=== PATIENT | male | born 1960 ===

== ENCOUNTER 2023-11-07 17:29 | Inpatient (IN) | payer OTHER, SELFPAY ==
[2023-11-07] VITALS (10 sets, daily range): BP systolic 74–151; BP diastolic 56–133; BMI 22.1; BMI 21.3
[2023-11-07 14:30] LABS: % Basophils 0.1 % (0-2); % Eosinophils 0.2 % (0-6); % Immature Granulocytes 0.4 % (0-0.5); % Monocytes 9.8 % (1.7-9.3); % Neutrophils 76.5 % (42.2-75.2); Absolute Lymphocytes 1.2 10^3/uL (1.2-3.4); Absolute Monocytes 0.9 10^3/uL (0.1-0.6); Absolute Neutrophils 7.1 10^3/uL (1.4-6.5); Hematocrit 33.5 % (39.0-52.0); Hemoglobin 11.4 g/dL (13.0-18.0); Mean Corpuscular Volume 79.4 fL (80.0-94.0); Nucleated Red Blood Cells % 0 % (-); Platelet Count 208 10^3/uL (130-400); Red Blood Cell Count 4.22 10^6/uL (4.70-6.10); Red Cell Dist. Width 14.8 % (11.5-14.5); White Blood Cell Count 9.3 10^3/uL (4.8-10.8)
[2023-11-07 14:43] LABS: ALT (SGPT) 47 U/L (0-50); AST (SGOT) 41 U/L (17-59); Albumin 3.4 g/dl (3.5-5.0); Alkaline Phosphatase 150 U/L (38-126); Blood Urea Nitrogen 61 mg/dl (9-20); Calcium 9.1 mg/dl (8.4-10.2); Carbon Dioxide 20 mmol/L (22-30); Chloride 99 mmol/L (98-107); Estimated Creatinine Clearance 59 ml/min; Glucose 108 mg/dl (70-99); Potassium 4.4 mmol/L (3.5-5.1); Sodium 131 mmol/L (135-145); Total Bilirubin 2.2 mg/dl (0.2-1.3); Total Protein 6.4 g/dl (6.3-8.2); eGFR > 60.00
[2023-11-07 14:58] LABS: NT-proBNP 2550 pg/ml; Troponin I 0.037 ng/ml
[2023-11-07] MEDS: LOPRESSOR 5 MG IV (15:07)
--- NOTE | 2023-11-07 15:49 | ED.GENMED ---
History of Present Illness
General
Chief Complaint: Failure to Thrive
Time Seen by Provider: 11/07/23 14:02
Travel History
Have you had any contact with someone who has COVID-19?: No
Do you have any symptoms of coronavirus? Fever > 100 degrees, chills, cough, shortness of breath, sore throat, loss of taste or smell, muscle aches, or headache?: No
History of Present Illness
History of Present Illness:
63-year-old male with history of hypothyroidism and hypertension presents to the emergency department for evaluation of failure to thrive. Family called 911 after discovering that the patient was not taking his medications for the past week and not
eating or drinking for the past 2 weeks. He apparently has been hallucinating as well. He has no history of cardiac dysrhythmia that he is aware of. He denies any current chest pain or shortness of breath. He feels fatigued but denies any other
symptoms at this time
Review of Systems
Review of Systems
Allergies reviewed?: Yes
All Other Systems: ROS reviewed and negative except as documented in HPI and ROS
Phy Exam
Physical Exam
Physical Exam:
GEN: Well appearing, NAD, WDWN
Eyes: PERRLA, EOMs intact, no scleral icterus
HENT: NCAT, oral mucosa moist, no JVD
Lungs: CTAB, no wheezes, rales, rhonchi, normal chest wall excursion
Cardiac: RRR, no M/R/G, severe bilateral lower extremity lymphedema, nonpitting. Radial pulses 2+ bilat
Abdomen: S, NT, ND, NABS, no masses or hepatosplenomegaly
Neuro: AO x 3, no focal deficits to BUE/BLE, normal sensation throughout. Slurred speech reportedly baseline for the patient. Generalized tremors noted
MSK: No gross deformity or ecchymosis. No edema. No digital clubbing
Skin: No rashes, petechiae. Normal color, no pallor or jaundice.
Psych: Calm, cooperative, proper hygiene
Course
Orders/Labs/Results
Orders:
Orders
11/07/23 13:40
Electrocardiogram (*1) Urgent
Reason for Study: Tachycardia
EKG- Treatment ONCE
11/07/23 14:19
CR Chest - 2 Views Urgent
Comment:
Reason For Exam: cough
11/07/23 14:21
CMP [Comprehensive Metabolic Panel] Urgent
Complete Blood Count/With Diff Urgent
Free T4 Urgent
NT-proBNP Urgent
TSH Reflex To Free T4 Urgent
Comment: TSH REFLEX ADDED ON BY FLOOR 3PM 11-07-23
Troponin I Urgent
11/07/23 14:45
PTT Urgent
Comment: Obtain baseline before beginning heparin infusion if not already collected
11/07/23 15:01
Add On- LAB Urgent
Tests Added?: TSH w reflex T4
Metoprolol [Lopressor] 5 mg IV NOW STA
11/07/23 15:36
Heparin 4,000 units IV NOW STA
Nursing to Place Non Medication Order As Directed
Physician Order: PTT 6 hours after initial start of Heparin infusion
Above order entered?: Yes
11/07/23 15:45
Heparin 51646 Units/250 ml 25,000 units in 250 ml IV PER PROTOCOL
Weight to be used for heparin protocol in kilograms (kg):: 74
Protocol:: Cardiac Tx/Acute Coronary
PTT Goal Range to be used:: PTT 73 to 111 seconds
Order type:: Initial
INITIAL Infusion Dose (UNITS/KG/hr) & then follow protocol:: 15 units/kg/hr
Infusion Dose in UNITS/hr & then follow protocol (UNITS/hr):: 1,100
INFUSION RATE in mL/hr & then follow protocol (mL/hr):: 11
PTT less than or equal to 64 seconds:: Increase rate by 200 units/hr (+ 2 mL/hr)
PTT 64.1 to 72.9 seconds:: Increase rate by 100 units/hr (+ 1 mL/hr)
PTT 73 to 111 seconds:: Target Range. No change in rate.
PTT 111.1 to 130.9 seconds:: Decrease rate by 100 units/hr (- 1 mL/hr)
PTT 131 to 199.9 seconds:: HOLD for 1 hr. Then decrease rate by 200 units/hr (- 2 mL/hr)
PTT greater than or equal to 200 seconds:: HOLD for 2 hrs & Notify Provider. Then decrease by 200 units/hr (-
2 mL/hr)
Lab follow-up:: Each change, PTT q6h until 2 consecutive are therapeutic. Then PTT
daily.
11/07/23 16:14
Admit/Transfer Patient As Directed
Co-Sign Provider:
Level of Care: Inpatient admission
Assign to:: Telemetry
Physician / Group: Dr Mccartney
Diagnosis: A fib
Reason for Telemetry: Arrhythmia
Date to Stop Telemetry: 11/10/23
Time to Stop Telemetry: 11:00
Reason for Hospitalization: pte p/w failure to thrive and found a fib
Expected length of stay greater than two midnights?: Yes
ELOS- Estimated Length of Stay in days: 2
I certify the patient meets the requirements for IP care: Yes
11/07/23 16:15
Code Status As Directed
Resuscitation Status: Full Code
11/07/23 16:16
Ondansetron Injectable [Zofran] 4 mg .ROUTE .STK-MED ONE
11/07/23 16:17
CARDIOLOGY CONSULT Routine
Consulting Provider: Justo Hathaway
Was physician already notified: Yes
Reason for consult: a fib eval
11/07/23 16:30
Troponin I Q6H
11/07/23 16:34
Free T3 Routine
Osmolality, Random Urine Routine
Serum Osmolality Routine
Urine Sodium Routine
11/07/23 16:39
CT Head W/o Iv Contrast Routine
Comment:
Reason For Exam: Confusion, weakness
11/07/23 16:52
GASTROINTESTINAL CONSULT Routine
Consulting Provider: Markell Magaña
Was physician already notified: Yes
Reason for consult: FTT, vomitting, diarrhea, wt loss
11/07/23 17:00
Methimazole [Tapazole] 10 mg PO DAILY
Pantoprazole [Protonix IV] 40 mg IV DAILY
11/07/23 22:00
Prothrombin Time Urgent
11/07/23 22:30
Troponin I Q6H
11/08/23 04:30
Troponin I Q6H
11/08/23 06:00
B12 [Vitamin B12] IN AM
Cortisol, Random IN AM
Ferritin IN AM
Folate IN AM
Iron IN AM
LFT [Pmsou-Weuu-Qsomabl] IN AM
Total Iron Binding IN AM
Ot Eval And Treat IN AM
Pt Eval And Treat IN AM
Activity Level: Out of Bed-Early Mobility
11/08/23 10:30
Troponin I Q6H
11/10/23 11:00
DC Protocol for Telemetry ONCE
Abnormal Lab Results
11/07/23 11/07/23
14:21 14:45
RBC 4.22 L 10^6/uL
(4.70-6.10)
Hgb 11.4 L g/dL
(13.0-18.0)
Hct 33.5 L %
(39.0-52.0)
MCV 79.4 L fL
(80.0-94.0)
RDW 14.8 H %
(11.5-14.5)
MPV 11.0 H fL
(7.4-10.4)
Absolute Neuts (auto) 7.1 H 10^3/uL
(1.4-6.5)
Absolute Monos (auto) 0.9 H 10^3/uL
(0.1-0.6)
Neutrophils % 76.5 H %
(42.2-75.2)
Lymphocytes % 13.0 L %
(20.5-51.1)
Monocytes % 9.8 H %
(1.7-9.3)
APTT 40.1 H Sec
(23.4-35.0)
Sodium 131 L mmol/L
(135-145)
Carbon Dioxide 20 L mmol/L
(22-30)
BUN 61 H mg/dl
(9-20)
Glucose 108 H mg/dl
(70-99)
Total Bilirubin 2.2 H mg/dl
(0.2-1.3)
Alkaline Phosphatase 150 H U/L
(38-126)
Troponin I 0.037 H* ng/ml
Albumin 3.4 L g/dl
(3.5-5.0)
TSH (Reflex) < 0.02 L uIU/ml
(0.47-4.68)
Free T4 > 6.99 H ng/dl
(0.78-2.19)
11/07/23 14:21
11/07/23 14:21
Vital Signs
Initial and Last Documented VS:
Initial Vital Signs
Temp Pulse Resp BP Pulse Ox
97.7 F 121 16 110/78 96
11/07/23 13:30 11/07/23 13:30 11/07/23 13:30 11/07/23 13:30 11/07/23 13:30
Last Documented Vital Signs
Temp Pulse Resp BP Pulse Ox
97.7 F 129 21 121/61 99
11/07/23 13:30 11/07/23 14:30 11/07/23 14:15 11/07/23 14:05 11/07/23 14:30
MDM/Problems Addressed
MDM/Problems Addressed:
Patient's symptoms are compatible with thyrotoxicosis secondary to medication noncompliance. He is not altered nor hyperthermic thus does not require ICU level of care. Patient started on IV beta-blockers with good results. Will be admitted to
the hospitalist service, heparin initiated due to new onset atrial fibrillation
Comment
Comment:
Initial EKG independently interpreted by me shows a rapid atrial fibrillation at a rate of 128, patient motion artifact limits interpretation
*Critical Care Note
Total Time (30-74mins, 75-104mins- exclusive of procedures): Not Applicable
ED Attending Note
-
Portions of this chart may have been created with voice recognition software.� Occasional wrong word or��sound alike� substitutions may have occurred due to the inherent limitations of voice recognition software.
Discharge Plan
Departure
Patient Disposition: Admit
Date of Disposition: 11/07/23
Time of Disposition: 15:49
Admit to: Telemetry
Presentation/result/management discussed w/ accepting MD/DO: Hospitalist
Discharge Problem:
Atrial fibrillation with RVR, Non compliance w medication regimen, Elevated troponin level not due to acute coronary syndrome, Thyrotoxicosis
Prescriptions:
No Action
losartan 50 mg tablet
50 mg PO DAILY
furosemide 40 mg tablet
40 mg PO DAILY
methimazole 10 mg tablet
10 mg PO DAILY
Referrals:
January De La Vega NP [Family Provider] -
Interventions
Interventions:
*Risk Screen - Suicide Last Done: 11/07/23 14:24
*General Assessment Last Done: 11/07/23 14:48
*Neglect/Abuse Screening Last Done: 11/07/23 14:24
ED- Fall Risk Assessment Last Done: 11/07/23 14:48
*ED COVID-19 Vaccine History Last Done: 11/07/23 13:30
Discharge Date and Time
Print Language: TURKMEN
[2023-11-07 16:07] LABS: TSH Reflex To Free T4 < 0.02 uIU/ml (0.47-4.68)
[2023-11-07] MEDS: HEPARIN 25000 UNITS/250 ML IV (16:07)
[2023-11-07] MEDS: HEPARIN 4000 UNITS IV (16:07)
[2023-11-07 16:09] LABS: APTT 40.1 Sec (23.4-35.0)
--- NOTE | 2023-11-07 16:17 | HPS.HSE ---
Addendum entered and electronically signed by Viktor Mccartney MD 11/07/23 20:39:
Correction-->History of Hyperthyroidism. Also plan for MRI brain in am.
Original Note:
Family Physician
-
Family Physician: January De La Vega
Chief Complaint
-
Failure to thrive
History of Present Illness
Patient is 63 years old male with unknown past medical history but some of which include hypertension, hypothyroidism, chronic lower extremity edema, presented to the hospital with failure to thrive. By the time of my evaluation patient is not very
enthusiastic to give me details of his history since he just told me that he has been talking to different physicians prior to me but he volunteered some. Patient has been having nausea and vomiting, decreased oral intake, and diarrhea for few
weeks associated with generalized weakness and generalized malaise. No fevers or chills. Weight loss of significant amount over the last several months. In the ER patient was found to be in atrial fibrillation rapid ventricular response. He has
not been taking his medications as of late due to his malaise. He denies chest pain or shortness of breath. Denies syncope or near syncope. In the ER hemoglobin 11.4, creatinine 1.3, troponin 0.037, TSH less than 0.02. He had a chest x-ray no
acute cardiopulmonary pathology. He was started on heparin drip and given metoprolol and that has kept his heart rate under control. He was referred to hospitalist for further evaluation.
Medical History
Past Medical History
Past Medical History: Reports Other (Hypertension, hypothyroidism, chronic lower extremity edema, weight loss.)
Past Surgical History: Reports None
Social History
Tobacco: Former Smoker
Alcohol: Former
Drug: None
Family History
Family History: Not pertinent
Allergies / Home Medications
Allergies reflects when Allergies were last updated in [facility].
Home Medications with original date entered in [facility]
Allergy/Medication List:
Allergies
Allergy/AdvReac Type Severity Reaction Status Date / Time
No Known Allergies Allergy Unverified 11/07/23 13:27
Home Medications
furosemide 40 mg tablet 40 mg PO DAILY 11/07/23
losartan 50 mg tablet 50 mg PO DAILY 11/07/23
methimazole 10 mg tablet 10 mg PO DAILY 11/07/23
Review of Systems
-
A 12 point ROS was completed and negative except as noted: Yes
Physical Exam
Vital Signs
Vital Signs
Temp Pulse Resp BP Pulse Ox
97.7 F 129 21 121/61 99
11/07/23 13:30 11/07/23 14:30 11/07/23 14:15 11/07/23 14:05 11/07/23 14:30
Physical exam:
General: Acutely and appears chronically ill. Appears cachectic
HEENT: Normocephalic, Atraumatic and Moist Mucous Membranes
Respiratory: Clear to Auscultation; Negative Wheezes, Rales or Rhonchi
Cardiac: Irregular rate and rhythm, tachycardic, and S1/S2
GI: Soft, Nontender and Nondistended
Musculoskeletal: No Clubbing, No Cyanosis and No Edema
Neuro: Awake, Alert and Oriented, generalized weakness.
Psych: Calm
Physical Exam
General: Other
Laboratory Results
-
11/07/23 14:21
11/07/23 14:21
Laboratory Results
APTT 40.1 Sec (23.4-35.0) H 11/07/23 14:45
Total Bilirubin 2.2 mg/dl (0.2-1.3) H 11/07/23 14:21
AST 41 U/L (17-59) 11/07/23 14:21
ALT 47 U/L (0-50) 11/07/23 14:21
Alkaline Phosphatase 150 U/L (38-126) H 11/07/23 14:21
Troponin I 0.037 ng/ml H* 11/07/23 14:21
Impression/Plan
-
IMPRESSION:
Impression:
A Fib RVR
Thyroid abnormal studies, hyperthyroidism (TFT pending)
Elevated troponin, likely elevated troponin due to non-ischemic myocardial injury but cannot rule out acute coronary syndrome.
Hyponatremia
Anemia
Nausea vomiting dysphagia
Diarrhea
Weight loss, unspecified
Conditions prior to presentation:
HTN
Hyperthyroidism
Peripheral edema
PLAN:
Cont heparin drip
Trend cardiac enzymes
Follow thyroid tests
Might need to continue or increase methimazole depending on results w/u
Will start him on IV Protonix 40 mg daily
Will proceed to do anemia workup
Will do also hyponatremia workup
Will also restart him on methimazole 10 mg daily
Discussed with endocrinology on-call via [facility] text and recommended above medication.
Will have GI consult
cont cardiac monitoring
DVT prophylaxis taken care by heparin
Code status full code
Total time spent on today's encounter was 75 minutes which included time spent in counseling the patient/family regarding diagnosis and treatment plan as listed above, goals of care, and symptom management. Case was discussed with nursing staff,
specialists. All labs and imaging personally reviewed by me. Remainder the time spent in detailed review of previous records, lab data, imaging, and other medical provider documentation.
[2023-11-07 16:36] LABS: Free T4 > 6.99 ng/dl (0.78-2.19)
--- NOTE | 2023-11-07 16:38 | CON.CAR ---
Addendum entered and electronically signed by Reji Nieves DO 11/07/23 17:07:
I saw and examined the patient.
The Customer Success Representative's note was reviewed and I agree with the note.
Comment:
GENERAL: no acute distress, cachectic
EYE: sclera anicteric
NECK: Supple, no JVD, no carotid bruit appreciated
ENT: normal nose, dry mucosal membranes
CARDIAC: irregularly irregular, +S1/S2, no murmur, rubs, or gallops
CHEST/PULMONARY: Normal effort, clear breath sounds
ABDOMEN: Soft, without focal tenderness or distention
NEUROLOGICAL: Alert and oriented x3
SKIN: Warm and dry, non-pitting edema BL LE
PSYCH: Normal and appropriate interaction.
[id number]: 2 (Age, HTN); on heparin gtt by primary service; likely transition to PO when able (cost assessment)
A/P as below.
New onset AFRVR likely in the setting of hyperthyroidism (previously controlled on methimazole but not currently taking) -- appreciate input by hospitalist/endocrine regarding management of acute hyperthyroidism
Recommend treating underlying cause
OK for beta-camilla
CT head given new onset confusion
No need for repeat echocardiogram at this time, can consider as outpatient or if acute change while in-patient
Troponin elevation unlikely ACS; continue to monitor, likely elevated in the setting of AFRVR/hyperthyroid
Supportive care
Original Note:
Consultation
Consultation Request
Date/Time Consultation Requested: 11/07/2023
Date/Time Consultation Performed: 11/07/2023 at 1630
Requesting Provider: Dr. Mccartney
Performing Provider: Dr. Nieves
Reason for Consultation: Afib w/ RVR
Medical History
-
History of Present Illness:
HPI: Elia is a 63-year-old male with past medical history of hypertension, extremity edema, and hyperthyroidism who presented to ER after being urged by his family. He reportedly has had no appetite for the past 2 weeks and has not been
eating or drinking or taking his medications. He denies any specific complaints, however does note some occasional dizziness at times. In ER, he was found to be in rapid atrial fibrillation on arrival with heart rate 128 bpm. He has no known
history of atrial fibrillation and is unsure how long he has been in this rhythm. He notes he has had episodes of confusion and difficulty with word finding recently and also has had episodes of weakness. He was given 5 mg of IV Lopressor and was
started on heparin drip given new rapid A-fib. Lab work revealed elevated troponin at 0.037 with elevated proBNP 2550. He also was noted to have TSH <0.02. Free T4 returned >6.99. Chest x-ray was negative. He is admitted for further workup and
evaluation of hyperthyroidism and rapid A-fib. Cardiology consulted for evaluation. He has no acute complaints at this time.
PMH:
Hypertension
Lower extremity edema
Hyperthyroidism
Past Medical History
Past Medical History: Other (In HPI)
Social History
Tobacco: Former Smoker
Alcohol: Former
Drug: None
Living: With Family
Employment: Retired
Family History
Family History: Other (CVA in father)
Allergies / Home Medications
Allergy/AdvReac Type Severity Reaction Status Date / Time
No Known Allergies Allergy Unverified 11/07/23 13:27
�Medication �Instructions �Recorded �Confirmed �Type
furosemide 40 mg tablet 40 mg PO DAILY 11/07/23 11/07/23 History
losartan 50 mg tablet 50 mg PO DAILY 11/07/23 11/07/23 History
methimazole 10 mg tablet 10 mg PO DAILY 11/07/23 11/07/23 History
Review of Systems
-
History Source: Patient
All other systems: Negative unless noted
Physical Exam
Vital Signs
Temp Pulse Resp BP Pulse Ox
97.7 F 129 21 121/61 99
11/07/23 13:30 11/07/23 14:30 11/07/23 14:15 11/07/23 14:05 11/07/23 14:30
Lab Results
11/07/23 14:21
11/07/23 14:21
Troponin I 0.037 ng/ml H* 11/07/23 14:21
Bjq-H-Yzjrtsnaigx Pept 2550 pg/ml 11/07/23 14:21
Physical Exam
General: No Apparent Distress and Other (Appears older than stated age)
HEENT: Normocephalic and Moist Mucous Membranes
Respiratory: Clear and Non Labored Respirations
Cardiac: S1/S2 and Irregular Rhythm
Musculoskeletal: No Clubbing, No Cyanosis and Edema
Skin: Warm and Dry
Neuro: AO x 3
Psych: Calm
Impression / Plan
-
PCP: EDDIE Gleason
Impression:
Presented with failure to thrive
Atrial fibrillation with RVR�newly diagnosed
Confusion/weakness
Medical noncompliance
Elevated troponin
Loss of appetite
Hypertension
Lower extremity edema
Hyperthyroidism - uncontrolled
Echo 09/01/2023: EF 55 to 60%, mild AI
Plan:
-Presented after he has had lack of appetite and has been noncompliant with his medications. Reportedly has not been eating or drinking.
-Initial EKG reviewed and shows rapid afib. This is a new diagnosis. Heart rates elevated. Given 5 mg of IV Lopressor in ER.
-Will start him on Toprol 25 mg daily for rate control.
-Currently on heparin drip for anticoagulation. Will need to transition to oral anticoagulation. Given history of noncompliance, once daily dosing may be better for patient.
-We will castillo out cost for Eliquis 5 mg twice daily as well as Xarelto 20mg daily.
-TSH in ER returned <0.02. Free T4 > 6.99. Suspect afib may be related to uncontrolled hyperthyroidism.
-ProBNP elevated at 2550. LE edema noted. On PO lasix 40mg daily as OP, however has not been taking. Would restart.
-Troponin elevation noted at 0.037. Suspect nonischemic myocardial injury. Will trend to peak.
-Recent echo 08/2023 with preserved EF and mild AI as noted above.
-Given episodes of confusion/weakness over the past few weeks and now with afib, would check head CT.
-BP stable overall, as OP was on losartan, however has not been taking for some time. Follow BP for now and restart as needed.
HPI: Elia is a 63-year-old male with past medical history of hypertension, extremity edema, and hyperthyroidism who presented to ER after being urged by his family. He reportedly has had no appetite for the past 2 weeks and has not been
eating or drinking or taking his medications. He denies any specific complaints, however does note some occasional dizziness at times. In ER, he was found to be in rapid atrial fibrillation on arrival with heart rate 128 bpm. He has no known
history of atrial fibrillation and is unsure how long he has been in this rhythm. He notes he has had episodes of confusion and difficulty with word finding recently and also has had episodes of weakness. He was given 5 mg of IV Lopressor and was
started on heparin drip given new rapid A-fib. Lab work revealed elevated troponin at 0.037 with elevated proBNP 2550. He also was noted to have TSH <0.02. Free T4 returned >6.99. Chest x-ray was negative. He is admitted for further workup and
evaluation of hyperthyroidism and rapid A-fib. Cardiology consulted for evaluation. He has no acute complaints at this time.
Data Reviewed
-
EKG: Tracing Personally Visualized and interpreted
Radiology: Report Reviewed by me
Labs: Labs Reviewed by me
Old Records: Reviewed
[2023-11-07 18:04] LABS: Osmolality Serum 306 mOsm/kg (275-300)
[2023-11-07 18:08] LABS: Troponin I 0.042 ng/ml
[2023-11-07 18:20] LABS: Free T3 > 22.80 pg/ml (2.77-5.27)
[2023-11-07 22:15] LABS: INR 1.48; PT 17.8 Sec (11.4-14.6)
[2023-11-07 22:16] LABS: APTT 50.6 Sec (23.4-35.0)
[2023-11-07 22:36] LABS: Troponin I 0.043 ng/ml
[2023-11-07 22:57] LABS: Urine Albumin Negative (Neg - Trace); Urine Bilirubin Negative (Negative); Urine Character Clear (Clear); Urine Color Amber; Urine Glucose Negative (Negative); Urine Ketone 1+ (Negative); Urine Leukocyte Negative (Negative); Urine Nitrite Negative (Negative); Urine Occult Blood Negative (Negative); Urine Urobilinogen Negative (Neg - 1+)
[2023-11-07 23:08] LABS: Osmolality Urine 573 mOsm/kg (300-900)
[2023-11-07 23:15] LABS: Urine Sodium 21 mmol/L (30-90)
[2023-11-07] MEDS: TAPAZOLE PO (23:46)
[2023-11-07] MEDS: PROTONIX IV 40 MG IV (23:52)
[2023-11-07] MEDS: NSS (PRESERVATIVE FREE) 10 ML IV (23:52)
[2023-11-07] MEDS: FLUSH (NSS) 1 FLUSH IV (23:52)
[2023-11-08] MEDS: TAPAZOLE PO (00:04)
--- NOTE | 2023-11-08 00:23 | PTCARENOTE ---
Pt admitted to floor from ED at change of shift. Pt with confused conversation and garbled speech. Daughter states upper and lower dentures at home. . VSS, Afib on the monitor. Heparin gtt infusing without difficulty. Pt weak when standing requiring
assist x 2 to the bsc. Pt had small liquid brown stool. Pt offered lunch box at request of daughter which pt refused but was able to drink 480ml of water without difficulty. Pt can be very paranoid at times and refused his pm medication. Bed alarm
placed for pt safety. Call ramirez within reach. Will monitor.
--- NOTE | 2023-11-08 01:45 | W.PN.UPDATE ---
Update Note
Progress Note Update
RN notified A AND P TECHNICIAN of patient with urinary retention, Bladder scan 600's, Will straight cath once, will order UA C&S, no other complaints at present.
[2023-11-08 03:33] VITALS: BP 146/69
[2023-11-08 07:00] VITALS: BP 163/85
--- NOTE | 2023-11-08 07:14 | CON.GI ---
Addendum entered and electronically signed by Markell Magaña MD 11/08/23 13:05:
I saw and examined the patient.
The DRILL PRESS OPERATOR HELPER or PA's note was reviewed and I agree with the note.
Comment:
Pt is a 63 y/o man with htn, hyperthyroidism on wrong methimazole does with LE edema, afib and failure to thrive with many GI symptoms including decreased appetite. Last colonoscopy in [place] 2 yrs ago, no egd
abd: soft, nontender, no hepatomegaly
impression
hyperthyroidism uncontrolled
failure to thrive
weight loss
plan:
many of his symptoms may be from his uncontrolled hyperthyroidism
speech and nutrition consult
will follow for need of endoscopic evaluation
follow lfts
watch for refeeding
check iron studies
Original Note:
Consultation
-
Date/Time Consultation Requested: 11/07/23 1650
Date/Time Consultation Performed: 11/08/23 1050
Requesting Provider: Viktor Mccartney MD
Performing Provider: EDDIE Juarez, Markell Magaña MD
Reason for Consultation: wt loss, failure to thrive
Medical History
Chief Complaint / HPI
Chief Complaint: weakness
History of Present Illness:
Pt is a 63yo with hx HTN, hyperthyroidism on methimazole but may have not been taking correct dose, LE enema noted with failure to thrive. On admission noted with Afib with RVR and marked thyroid abnormality with failure to thrive and asked to
evaluate. Pt also noted with mild hyponatremia, elevated troponin, elevated bilirubin 2.2, alk phos 150.
In reviewing with family pt had teeth extraction last January in February noted with significant wt loss. May was noted with thyroid dysfunction and started on Methimazole but may have gotten confused with increased dosing recommended. He began
again with wt loss over last few weeks. He is also noted with dysphagia, nausea, vomiting, more acute decreased appetite last 3 weeks. Pt also admits to diarrhea but no rectal bleeding. No EGD in past but last colonoscopy normal within last 2
years ago [place].
Past Medical History
Past Medical History: HTN, Hyperthyroidism and Other (LE edema, anemia, hyponatremia )
Social History
Tobacco: Former Smoker (40 years ago)
Alcohol: Former (quit 11 years ago)
Drug: None
Living: With Family
Employment: Retired
Family History
Family History: Reviewed & Not Pertinent
Allergies / Home Medications
Allergy/AdvReac Type Severity Reaction Status Date / Time
No Known Allergies Allergy Unverified 11/07/23 13:27
�Medication �Instructions �Recorded
furosemide 40 mg tablet 40 mg PO DAILY 11/07/23
losartan 50 mg tablet 50 mg PO DAILY 11/07/23
methimazole 10 mg tablet 10 mg PO DAILY 11/07/23
Review of Systems
-
History Source: Patient and Family
Constitutional: Reports Weight Loss and Fatigue
EENT: Reports No Symptoms
Respiratory: Reports No Symptoms
Cardiac: Reports Palpitations
Abdomen/GI: Reports Nausea, Vomiting, Diarrhea and Anorexia
: Reports No Symptoms
Musculoskeletal: Reports Edema
Skin: Reports No Symptoms
Neurological: Reports Weakness
Endocrine: Reports No Symptoms
Hematologic/Lymphatic: Reports No Symptoms
Vital Signs
Temp Pulse Resp BP Pulse Ox
98.2 F 124 18 146/69 94
11/08/23 03:33 11/08/23 03:33 11/08/23 03:33 11/08/23 03:33 11/08/23 03:33
Physical Exam
Exam
General: Other (thin appearing with temporal wasting)
HEENT: Normocephalic and Anicteric
Respiratory: Clear
Cardiac: Peripheral Edema (with blistering ) and Other (tachy)
GI: Soft, Non Tender and Non Distended
Musculoskeletal: No Clubbing and No Cyanosis
Skin: Warm and Dry
Neuro: Awake, Alert, AO x 3 and Other (slight dysarthia in speech )
Psych: Calm
Results
WBC 9.3 10^3/uL (4.8-10.8) 11/07/23 14:21
Hgb 11.4 g/dL (13.0-18.0) L 11/07/23 14:21
Hct 33.5 % (39.0-52.0) L 11/07/23 14:21
MCV 79.4 fL (80.0-94.0) L 11/07/23 14:21
Plt Count 208 10^3/uL (130-400) 11/07/23 14:21
Absolute Neuts (auto) 7.1 10^3/uL (1.4-6.5) H 11/07/23 14:21
PT 17.8 Sec (11.4-14.6) H 11/07/23 22:00
INR 1.48 11/07/23 22:00
APTT 50.6 Sec (23.4-35.0) H 11/07/23 22:00
Sodium 131 mmol/L (135-145) L 11/07/23 14:21
Potassium 4.4 mmol/L (3.5-5.1) 11/07/23 14:21
Chloride 99 mmol/L (98-107) 11/07/23 14:21
Carbon Dioxide 20 mmol/L (22-30) L 11/07/23 14:21
BUN 61 mg/dl (9-20) H 11/07/23 14:21
Creatinine 1.3 mg/dL (0.7-1.3) 11/07/23 14:21
Calcium 9.1 mg/dl (8.4-10.2) 11/07/23 14:21
Total Bilirubin 2.2 mg/dl (0.2-1.3) H 11/07/23 14:21
AST 41 U/L (17-59) 11/07/23 14:21
ALT 47 U/L (0-50) 11/07/23 14:21
Alkaline Phosphatase 150 U/L (38-126) H 11/07/23 14:21
Diagnostic Image Results:
11/07/23- CT head No acute intracranial abnormality. Chronic findings, as above.
11/07/23 CXR Clear lungs.
05/02/23 US thyroid
1. Moderately enlarged thyroid gland demonstrating diffuse hypervascularity consistent with 'thyroid inferno.' The imaging appearance is most suggestive of ACUTE GRAVES' DISEASE.
2. Small subcentimeter thyroid nodules.
Prior GI Procedures:
EGD: none
Colonoscopy: last 2 years ago stable
Assessment / Plan
-
Pt is a 63yo with hx HTN, hyperthyroidism on methimazole but not taking correctily prior to admission, LE enema noted with failure to thrive. On admission noted with Afib with RVR and marked thyroid abnormality with failure to thrive and asked to
evaluate. Pt also noted with mild hyponatremia, elevated troponin, elevated bilirubin 2.2, alk phos 150.
-failure to thrive
-severe calorie malnutrition
-nausea/vomiting
-dysphagia
-diarrhea
-mild bili and alk phos elevation
-tachycardia
-afib with RVR
-hx hyperthyroidism off medication prior to admission with marked thyroid dysfunction on admission with TSH <0.02, T4 6.99, T3 >22.8
-wt loss
-mild anemia
-urinary retention
-mild bili and alk phos elevation
-hyponatremia
-increased troponin
-hypoalbuminemia
other medical problems:
HTN
Peripheral edema
PLAN:
Etiology of multiple symptoms including wt loss, FTT, diarrhea, afib, weakness related to underlying thyroid dysfunction vs other
cont to treat correct thyroid dysfunction per medical team as reviewed with endocrine assist
currently on Methimazole 10mg daily
await speech recommendation may need VSE
will add dietary consult for severe calorie malnutrition cont oral diet - with severe wt loss if not improving may need to consider supplemental feeding
will be at risk for refeeding syndrome
trend LFT's
add mag and phos levels
cont PPI
family updated at bedside
-
-
Thank you for consultation and allowing me to participate in the patient's care. Please call the environmental research project manager GI physician during the after hours with any questions or concerns.
[2023-11-08] MEDS: TOPROL XL 25 MG PO ×2 (07:41→08:12)
[2023-11-08] MEDS: TAPAZOLE 10 MG PO ×2 (07:41→08:12)
[2023-11-08 07:52] LABS: Hemoglobin 11.2 g/dL (13.0-18.0); Mean Corp Hgb Conc. 32.9 g/dL (33.0-37.0); Mean Corpuscular Hgb 26.7 pg (27.0-31.0); Mean Platelet Volume 11.2 fL (7.4-10.4); Platelet Count 184 10^3/uL (130-400); Red Cell Dist. Width 14.7 % (11.5-14.5); White Blood Cell Count 7.5 10^3/uL (4.8-10.8)
[2023-11-08 08:05] LABS: APTT 37.7 Sec (23.4-35.0)
[2023-11-08 08:10] LABS: ALT (SGPT) 48 U/L (0-50); AST (SGOT) 40 U/L (17-59); Albumin 3.2 g/dl (3.5-5.0); Alkaline Phosphatase 146 U/L (38-126); Blood Urea Nitrogen 65 mg/dl (9-20); Calcium 9.5 mg/dl (8.4-10.2); Carbon Dioxide 20 mmol/L (22-30); Chloride 101 mmol/L (98-107); Estimated Creatinine Clearance 62 ml/min; Glucose 99 mg/dl (70-99); Iron 49 ug/dl (49-181); Magnesium 2.2 mg/dl (1.6-2.3); Potassium 4.3 mmol/L (3.5-5.1); Sodium 136 mmol/L (135-145); Total Bilirubin 1.5 mg/dl (0.2-1.3); Total Protein 6.2 g/dl (6.3-8.2); eGFR > 60.00
[2023-11-08] MEDS: NSS (PRESERVATIVE FREE) 10 ML IV (08:12)
[2023-11-08] MEDS: PROTONIX IV 40 MG IV (08:12)
[2023-11-08 08:16] LABS: Troponin I 0.191 ng/ml
[2023-11-08 08:18] LABS: Direct Bilirubin 0.8 mg/dl (0.0-0.4)
[2023-11-08 08:19] LABS: Percent Saturation 26 % (20-50); Total Iron Binding Capacity 186 ug/dl (261-462)
--- NOTE | 2023-11-08 08:20 | W.PN.HOSP.TC ---
Today's Communication/Plan
-
IV heparin. Beta-blockers. Methimazole. Swallowing eval. GI and cardio eval.
Assessment / Plan
Assessment / Plan
Physical exam:
General: Acutely and appears chronically ill. Appears cachectic
HEENT: Normocephalic, Atraumatic and Moist Mucous Membranes
Respiratory: Clear to Auscultation; Negative Wheezes, Rales or Rhonchi
Cardiac: Irregular rate and rhythm, tachycardic, and S1/S2
GI: Soft, Nontender and Nondistended
Musculoskeletal: No Clubbing, No Cyanosis and No Edema
Neuro: Awake, Alert and Oriented, generalized weakness, dysarthria.
Psych: Calm
A/P:
Impression:
A Fib RVR
Hyperthyroidism
Elevated troponin, likely elevated troponin due to non-ischemic myocardial injury but cannot rule out ACS
Hyponatremia
Anemia
Nausea vomiting dysphagia/diarrhea/weight loss, unspecified
Ruled out acute stroke
Conditions prior to presentation:
HTN
Hyperthyroidism
Peripheral edema
PLAN:
Cont heparin drip--> might switch to DOAC over the next 24-48 hrs
On beta-blockers but considering IV Cardizem drip depending on rates
Cardiology consult appreciated
Discussed with cardiology today on 11/07
MRI of the brain no acute stroke but evidence of chronic infarcts
Trending cardiac enzymes
Thyroid tests consistent with hyperthyroidism (TSH less than 0.02, free T4 more than 6.9, free T3 more than 22.8)
Continue increased doses of methimazole 10 mg p.o. daily (discussed with delicatessen manager yesterday)
Cortisol level 43.7
Continue on IV Protonix 40 mg daily
Hemoglobin 11.2
Anemia workup consistent with mixed picture of iron deficiency and anemia of chronic disease (iron 49, TIBC 186, 26%, ferritin 720, B12 420, folate 7.1, mild hyperbilirubinemia)
Cortisol 43.7, urine sodium 21, urine osmolality 573, serum osmolarity 306.
Hemoglobin A1c is 5.8
GI consult appreciated
cont cardiac monitoring
Discussed with family at bedside today on 11/07
DVT prophylaxis taken care by heparin
Code status full code
Total time spent on today's encounter was 52 minutes which included time spent in counseling the patient/family regarding diagnosis and treatment plan as listed above, goals of care, and symptom management. Case was discussed with nursing staff,
specialists, and care coordinators/case management. All labs and imaging personally reviewed by me. Remainder the time spent in detailed review of previous records, lab data, imaging, and other medical provider documentation.
Anticipated Discharge: > 48 hours
Subjective/Interval History
-
Date of Service: November 08, 2023
Patient with generalized weakness. No chest pain or shortness of breath today.
Objective Data
-
Labs:
Laboratory Results
11/07/23 11/08/23
22:00 07:40
WBC Pending
Hgb Pending
Hct Pending
Plt Count Pending
PT 17.8 H
INR 1.48
APTT 50.6 H 37.7 H
Sodium 136
Potassium 4.3
Chloride 101
Carbon Dioxide 20 L
BUN 65 H
Creatinine 1.2
Glucose 99
Calcium 9.5
Total Bilirubin 1.5 H
AST 40
ALT 48
Alkaline Phosphatase 146 H
Vital Signs:
Vital Signs
Temp Pulse Resp BP Pulse Ox
98.2 F 131 18 149/69 94
11/08/23 03:33 11/08/23 07:41 11/08/23 03:33 11/08/23 07:41 11/08/23 03:33
I&O
11/07/23 11/08/23 11/09/23
06:59 06:59 06:59
Intake Total 480 / 480
Output Total 400 / 400
Balance 80 / 80
[2023-11-08 08:40] LABS: Cortisol, Random 43.7 ug/dl
[2023-11-08 09:16] LABS: Folate 7.1 ng/ml (2.76-20); Vitamin B12 420 pg/ml (239-931)
--- NOTE | 2023-11-08 09:17 | W.PN.CARDCBS ---
Today's Communication / Plan
-
Continue to trend troponin until it peaks; Trop up to 0.1. Likely med tx of nonMI troponin.
Cont beta camilla, started on Toprol 25 mg daily. HRs 110s. Increase Toprol to 25 mg BID. Consider IV Cardizem if HRs rise despite beta camilla therapy.
Cont IV heparin. Anticoagulation with Eliquis and Xarelto is expensive per case management. His daughter is lead pharmacy technician and will review with her pharmacy. Pt may require a prior Auth. Reviewed with case management.
Consider check echo November 09 to reeval EF in setting of rapid AFib
Bp stable. Lasix has been resumed. pBNP was 2550.
He had been on losartan but had not been taking. Cont to hold for now to give room for bp in setting of increasing beta camilla.
Discussed with pt and family that would continue with rate control therapy for now in setting of hyperthyroidism. Cont tx of hyperthyroidism as per primary service. .
Impression / Plan
-
.
PCP: EDDIE Gleason
Impression:
Presented with failure to thrive
Atrial fibrillation with RVR�newly diagnosed
Confusion/weakness
Medical noncompliance
Elevated troponin
Loss of appetite
Hypertension
Lower extremity edema
Hyperthyroidism - uncontrolled
Echo 09/01/2023: EF 55 to 60%, mild AI
Plan:
Continue to trend troponin until it peaks; Trop up to 0.1. Likely med tx of nonMI troponin.
Cont beta camilla, started on Toprol 25 mg daily. HRs 110s. Increase Toprol to 25 mg BID. Consider IV Cardizem if HRs rise despite beta camilla therapy.
Cont IV heparin. Anticoagulation with Eliquis and Xarelto is expensive per case management. His daughter is lead pharmacy technician and will review with her pharmacy. Pt may require a prior Auth. Reviewed with case management.
Consider check echo November 09 to reeval EF in setting of rapid AFib
Bp stable. Lasix has been resumed. pBNP was 2550.
He had been on losartan but had not been taking. Cont to hold for now to give room for bp in setting of increasing beta camilla.
Discussed with pt and family that would continue with rate control therapy for now in setting of hyperthyroidism. Cont tx of hyperthyroidism as per primary service. TSH in ER returned <0.02. Free T4 > 6.99.
Discussed with nursing and family at bedside. Discussed with primary service.
HPI: Elia is a 63-year-old male with past medical history of hypertension, extremity edema, and hyperthyroidism who presented to ER after being urged by his family. He reportedly has had no appetite for the past 2 weeks and has not been
eating or drinking or taking his medications. He denies any specific complaints, however does note some occasional dizziness at times. In ER, he was found to be in rapid atrial fibrillation on arrival with heart rate 128 bpm. He has no known
history of atrial fibrillation and is unsure how long he has been in this rhythm. He notes he has had episodes of confusion and difficulty with word finding recently and also has had episodes of weakness. He was given 5 mg of IV Lopressor and was
started on heparin drip given new rapid A-fib. Lab work revealed elevated troponin at 0.037 with elevated proBNP 2550. He also was noted to have TSH <0.02. Free T4 returned >6.99. Chest x-ray was negative. He is admitted for further workup and
evaluation of hyperthyroidism and rapid A-fib. Cardiology consulted for evaluation. He has no acute complaints at this time.
Progress Note - Professor Of Counseling
Subjective
Date of Service: November 08, 2023
Pt seen and examined. No chest pain or shortness of breath.
Objective
Labs:
11/08/23 07:40
Labs
Hgb 11.4 g/dL (13.0-18.0) L 11/07/23 14:21
Hct 33.5 % (39.0-52.0) L 11/07/23 14:21
Plt Count 208 10^3/uL (130-400) 11/07/23 14:21
PT 17.8 Sec (11.4-14.6) H 11/07/23 22:00
INR 1.48 11/07/23 22:00
APTT 37.7 Sec (23.4-35.0) H 11/08/23 07:40
Sodium 136 mmol/L (135-145) 11/08/23 07:40
Potassium 4.3 mmol/L (3.5-5.1) 11/08/23 07:40
BUN 65 mg/dl (9-20) H 11/08/23 07:40
Creatinine 1.2 mg/dL (0.7-1.3) 11/08/23 07:40
Glucose 99 mg/dl (70-99) 11/08/23 07:40
Troponins
11/07/23 11/07/23 11/07/23
14:21 17:04 22:00
Troponin I 0.037 H* 0.042 H* 0.043 H*
11/08/23
07:40
Troponin I 0.191 H*
Vital Signs and I&O:
Vital Signs
Temp Pulse Resp BP Pulse Ox
97.7 F 131 18 149/69 97
11/08/23 07:00 11/08/23 08:12 11/08/23 07:00 11/08/23 08:12 11/08/23 07:00
Vital Signs
Temp Pulse Resp BP Pulse Ox
97.7 F 131 18 149/69 97
11/08/23 07:00 11/08/23 08:12 11/08/23 07:00 11/08/23 08:12 11/08/23 07:00
Intake & Output
11/06/23 11/07/23 11/08/23 11/09/23
06:59 06:59 06:59 06:59
Intake Total 480 / 480
Output Total 400 / 400
Balance 80 / 80
Physical Exam
Physical Exam
General: No acute distress, AAOX3, chronic ill appearing
Neck: Negative JVD
Heart: Irregularly irregular, Negative S3 positive S1/S2, Negative S4, No murmur
Lungs: CTA b/l, negative wheezes/rales/rhonchi
Abd: Positive BS, NT/ND, neg rebound/rigidity/guarding
Ext: Negative cyanosis/clubbing/edema
Neuro: nonfocal
[2023-11-08 11:00] VITALS: BP 129/65
[2023-11-08] MEDS: LOPRESSOR 2.5 MG IV (11:40)
[2023-11-08 11:47] LABS: Phosphorus 5.4 mg/dl (2.5-4.5)
--- NOTE | 2023-11-08 11:55 | PTOTSP ---
SPEECH THERAPY SWALLOW EVALUATION:
Clinical signs of oropharyngeal dysphagia, likely chronic in patient with no reported predisposing dysphagia risk factors, though history limited. Etiology for oropharyngeal dysphagia remains unknown at this time. Recommend consider ENT and/or
Neurology consult to further assess potential etiologies of dysphagia, especially given significant change in vocal quality (now muffled, hyponasal), and asymmetrical velar elevation as noted during oral examination. Patient is at high risk for
aspiration and related complications given severity of dysphagia at bedside and signs of aspiration with 100% of p.o. trials. Recommend Videofluoroscopic Swallowing Study to further assess patient's swallow physiology; VFSS will be Thursday 11/09 due to
weekend schedule. Given consistent signs of aspiration at bedside, patient appears unsafe for oral diet prior to VFSS. Recommend patient to be strict NPO; consider short-term alternate means for all nutrition/medication/hydration. Speech therapy to
follow closely and provide further recommendations pending VFSS results and etiology of dysphagia which remains unknown at this time, and continue to provide education/support to patient/family regarding aspiration risks/complications and
recommendations. Discussed with patient and family, who appeared resistant to NPO recommendations, reporting concern for malnutrition give that patient 'hasn't eaten in 2 weeks.' Discussed with patient/family/Dr. Mccartney risks of oral diet and
aspiration/complications vs. malnutrition, and potential for non-oral medication/hydration/nutrition. All questions answered.
RECOMMEND:
1) Videofluoroscopic Swallowing Study
2) strict NPO; consider short-term alternate means for all nutrition/medication/hydration until VFSS
3) Recommend consider ENT and/or Neurology consult to further assess potential etiologies of dysphagia
4) Speech therapy to follow closely and provide further recommendations pending VFSS results and etiology of dysphagia which remains unknown at this time, and continue to provide education/support to patient/family regarding aspiration
risks/complications and recommendations
[2023-11-08 12:49] LABS: Glycohemoglobin (HgbA1c) 5.8 % (4.0-5.6)
--- NOTE | 2023-11-08 13:00 | W.PN.GI.CBS2 ---
Today's Communication / Plan
-
remove this note
Assessment / Plan
-
Pt is a 63yo with hx HTN, hyperthyroidism on methimazole but not taking correctily prior to admission, LE enema noted with failure to thrive. On admission noted with Afib with RVR and marked thyroid abnormality with failure to thrive and asked to
evaluate. Pt also noted with mild hyponatremia, elevated troponin, elevated bilirubin 2.2, alk phos 150.
-failure to thrive
-severe calorie malnutrition
-nausea/vomiting
-dysphagia
-diarrhea
-mild bili and alk phos elevation
-tachycardia
-afib with RVR
-hx hyperthyroidism off medication prior to admission with marked thyroid dysfunction on admission with TSH <0.02, T4 6.99, T3 >22.8
-wt loss
-mild anemia
-urinary retention
-mild bili and alk phos elevation
-hyponatremia
-increased troponin
-hypoalbuminemia
other medical problems:
HTN
Peripheral edema
PLAN:
Etiology of multiple symptoms including wt loss, FTT, diarrhea, afib, weakness related to underlying thyroid dysfunction vs other
cont to treat correct thyroid dysfunction per medical team as reviewed with endocrine assist
currently on Methimazole 10mg daily
await speech recommendation may need VSE
will add dietary consult for severe calorie malnutrition cont oral diet - with severe wt loss if not improving may need to consider supplemental feeding
will be at risk for refeeding syndrome
trend LFT's
add mag and phos levels
cont PPI
family updated at bedside
Subjective
Subjective
Date of Service: November 08, 2023
Objective
Data Reviewed
Laboratory Data:
Laboratory Results
11/08/23 07:40
11/08/23 07:40
Laboratory Results
PT 17.8 Sec (11.4-14.6) H 11/07/23 22:00
INR 1.48 11/07/23 22:00
APTT 37.7 Sec (23.4-35.0) H 11/08/23 07:40
Phosphorus 5.4 mg/dl (2.5-4.5) H 11/08/23 07:40
Magnesium 2.2 mg/dl (1.6-2.3) 11/08/23 07:40
Total Bilirubin 1.5 mg/dl (0.2-1.3) H 11/08/23 07:40
AST 40 U/L (17-59) 11/08/23 07:40
ALT 48 U/L (0-50) 11/08/23 07:40
Alkaline Phosphatase 146 U/L (38-126) H 11/08/23 07:40
Vital Signs and I&O:
Vital Signs
Temp Pulse Resp BP Pulse Ox
97.4 F 128 18 149/69 97
11/08/23 11:00 11/08/23 11:40 11/08/23 11:00 11/08/23 11:40 11/08/23 11:00
I&O
11/07/23 11/08/23 11/09/23
06:59 06:59 06:59
Intake Total 480 / 480
Output Total 400 / 400
Balance 80 / 80
--- NOTE | 2023-11-08 13:06 | W.PN.UPDATE ---
Update Note
Progress Note Update
for billing purposes only
[2023-11-08] MEDS: NSS 1000 IV (13:54)
[2023-11-08] MEDS: HEPARIN 25000 UNITS/250 ML IV (13:55)
[2023-11-08 15:00] VITALS: BP 148/80
--- NOTE | 2023-11-08 16:36 | CM ---
assistant credit manager reviewed patient's chart and met with patient and patient lives with his daughter in a one story home, with 2 steps to enter, patient is independent with adl's and ambulation, per physician rn case management to check on the cost of Eliquis
and Xarelto and rn case management spoke with patient's pharmacy [facility] and cost of Xarelto $595, Eliquis $621, daughter Daniela who is a pharmacist tech to look into cost of medications and will follow up with cardiology.
Pharmacy: [facility]
PCP: Dr. De La Vega
Plan; Home with daughter when stable.
--- NOTE | 2023-11-08 17:52 | PTCARENOTE ---
Dr Meredith and Dr Hathaway updated and notified of speech's recommendations along with troponin results. pt will be kept strict NPO as per order. Swallow study recommended by speech. will continue to monitor.
[2023-11-08 19:20] VITALS: BP 110/78
[2023-11-08 20:58] LABS: APTT 88.6 Sec (23.4-35.0)
--- NOTE | 2023-11-08 23:22 | W.PN.UPDATE ---
Update Note
Progress Note Update
patient taking tubes out, tried restraining with Mitts. Patient seems to be more agitated and restless now as he wants it to be off, getting verbal with staff, Will give one time dose of Ativan 0.5mg Iv.
[2023-11-08] MEDS: NSS (PRESERVATIVE FREE) 0.25 ML IV (23:29)
[2023-11-08 23:30] VITALS: BP 162/81
[2023-11-08] MEDS: ATIVAN 0.5 MG IV (23:30)
[2023-11-08] MEDS: LOPRESSOR 5 MG IV (23:30)
[2023-11-09 03:55] VITALS: BP 168/95
[2023-11-09 04:08] LABS: % Basophils 0.3 % (0-2); % Eosinophils 0.3 % (0-6); % Immature Granulocytes 0.4 % (0-0.5); % Lymphocytes 21.9 % (20.5-51.1); % Monocytes 8.5 % (1.7-9.3); % Neutrophils 68.6 % (42.2-75.2); Absolute Lymphocytes 1.7 10^3/uL (1.2-3.4); Absolute Monocytes 0.7 10^3/uL (0.1-0.6); Absolute Neutrophils 5.3 10^3/uL (1.4-6.5); Hematocrit 34.1 % (39.0-52.0); Hemoglobin 11.1 g/dL (13.0-18.0); Mean Corp Hgb Conc. 32.6 g/dL (33.0-37.0); Mean Corpuscular Hgb 26.5 pg (27.0-31.0); Mean Corpuscular Volume 81.4 fL (80.0-94.0); Mean Platelet Volume 11.6 fL (7.4-10.4); Nucleated Red Blood Cells % 0 % (-); Platelet Count 185 10^3/uL (130-400); Red Blood Cell Count 4.19 10^6/uL (4.70-6.10); Red Cell Dist. Width 14.6 % (11.5-14.5); White Blood Cell Count 7.7 10^3/uL (4.8-10.8)
[2023-11-09 04:20] LABS: APTT 86.4 Sec (23.4-35.0)
[2023-11-09 04:47] LABS: ALT (SGPT) 48 U/L (0-50); AST (SGOT) 46 U/L (17-59); Albumin 3.2 g/dl (3.5-5.0); Alkaline Phosphatase 138 U/L (38-126); Blood Urea Nitrogen 66 mg/dl (9-20); Calcium 9.4 mg/dl (8.4-10.2); Carbon Dioxide 18 mmol/L (22-30); Chloride 109 mmol/L (98-107); Creatine Phosphokinase 56 U/L (55-170); Estimated Creatinine Clearance 74 ml/min; Glucose 119 mg/dl (70-99); Potassium 4.6 mmol/L (3.5-5.1); Sodium 137 mmol/L (135-145); Total Bilirubin 1.3 mg/dl (0.2-1.3); Total Protein 6.1 g/dl (6.3-8.2); eGFR > 60.00
[2023-11-09] MEDS: LOPRESSOR 5 MG IV ×3 (05:26→17:37)
[2023-11-09] MEDS: HEPARIN 25000 UNITS/250 ML IV ×2 (05:31→21:10)
[2023-11-09 07:41] VITALS: BP 135/73
--- NOTE | 2023-11-09 08:31 | W.PN.HOSP.TC ---
Today's Communication/Plan
-
IV Heparin drip. IV Lopressor. IVF. Neurology consult. Plan VSE tomorrow.
Assessment / Plan
Assessment / Plan
Physical exam:
General: Acutely and appears chronically ill. Appears cachectic
HEENT: Normocephalic, Atraumatic and Moist Mucous Membranes
Respiratory: Clear to Auscultation; Negative Wheezes, Rales or Rhonchi
Cardiac: Irregular rate and rhythm, tachycardic, and S1/S2
GI: Soft, Nontender and Nondistended
Musculoskeletal: No Clubbing, No Cyanosis and No Edema
Neuro: Awake, Alert and Oriented, generalized weakness, dysarthria.
Psych: Calm
A/P:
Impression:
A Fib RVR
Hyperthyroidism
Elevated troponin, likely elevated troponin due to non-ischemic myocardial injury but cannot rule out ACS
Hyponatremia
Anemia
Nausea vomiting dysphagia/diarrhea/weight loss, unspecified
Ruled out acute stroke but concern for Myasthenia Gravis or other UMN or other neurological disease
Possible vascular related cognitive deficits
Conditions prior to presentation:
HTN
Hyperthyroidism
Peripheral edema
PLAN:
I had lengthy discussions with daughters and RN present at bedside today.
Cont NPO and plan for VSE tomorrow
Family concern about lack of nutrition so we discussed NGT but they seem opposed to that so will reeval tomorrow
Neurology consult today- discussed with neurology in person today. Appreciated neuro input.
Checked CPK yesterday and today is normal and sent Ach Ab yesterday as well and pending. Neuro will send rest to complete work up today.
Cont heparin drip--> might switch to DOAC over the next 24-48 hrs
On IV beta-blockers
Cardiology consult appreciated
Discussed with cardiology today
MRI of the brain no acute stroke but evidence of chronic infarcts
Trending cardiac enzymes
Thyroid tests consistent with hyperthyroidism (TSH less than 0.02, free T4 more than 6.9, free T3 more than 22.8)
Continue increased doses of methimazole 10 mg p.o. daily or can go up even higher but right now he is NPO so will reevaluate (discussed with cnc mill programmer Dr Love yesterday).
Cortisol level 43.7
Continue on IV Protonix 40 mg daily
Hemoglobin stable
GI on board.
Anemia workup consistent with mixed picture of iron deficiency and anemia of chronic disease (iron 49, TIBC 186, 26%, ferritin 720, B12 420, folate 7.1, mild hyperbilirubinemia)
Cortisol 43.7, urine sodium 21, urine osmolality 573, serum osmolarity 306.
Hemoglobin A1c is 5.8
cont cardiac monitoring
DVT prophylaxis taken care by heparin
Code status full code
Total time spent on today's encounter was 52 minutes which included time spent in counseling the patient/family regarding diagnosis and treatment plan as listed above, goals of care, and symptom management. Case was discussed with nursing staff,
specialists, and care coordinators/case management. All labs and imaging personally reviewed by me. Remainder the time spent in detailed review of previous records, lab data, imaging, and other medical provider documentation.
Anticipated Discharge: > 48 hours
Subjective/Interval History
-
Date of Service: November 09, 2023
Patient overall weak and tired. He is sleepy but answers questions appropriately. He has hoarse voice. I had lengthy discussions with daughters and RN present at bedside today.
Objective Data
-
Labs:
Laboratory Results
11/08/23 11/09/23
20:39 03:54
WBC 7.7
Hgb 11.1 L
Hct 34.1 L
Plt Count 185
APTT 88.6 H 86.4 H
Sodium 137
Potassium 4.6
Chloride 109 H
Carbon Dioxide 18 L
BUN 66 H
Creatinine 1.0
Glucose 119 H
Calcium 9.4
Total Bilirubin 1.3
AST 46
ALT 48
Alkaline Phosphatase 138 H
Vital Signs:
Vital Signs
Temp Pulse Resp BP Pulse Ox
98.2 F 118 25 168/95 98
11/09/23 03:55 11/09/23 03:55 11/09/23 03:55 11/09/23 03:55 11/09/23 03:55
I&O
11/08/23 11/09/23 11/10/23
06:59 06:59 06:59
Intake Total 480 / 480 953 / 953
Output Total 400 / 400 400 / 400
Balance 80 / 80 953 / 953 -400 / -400
--- NOTE | 2023-11-09 08:32 | PTCARENOTE ---
Pt remains confused throughout the night. OOB to commode x 2 to urinate and voiding in urinal at times. Pt attempting to get OOB, agitated with slurred garbled speech, consistently pulling at IV lines. House EDDIE Retana notified and on floor. B/L
mitts ordered and attempted to place on pt but pt became more agitated, yelling and attempting to strike this nurse. Order received for IV Ativan. Pt slept intermittently after administration but again pulling at IV lines including Heparin which
dislodged with bleeding. Bed alarm maintained for pt safety. Daughters at bedside until late hours at night and arriving early in the morning standing over pt, tearful at times. asking many questions repeatedly even after numerous explanations. Pt
is ordered NPO but daughter states 'I have been giving him water all day. The doctor said he could drink .We haven't seen a doctor. I want to see a doctor. I can't stand watching my dad like this.' Daughter at nursing station upset 'Can someone
please help my Dad. I don't know why we brought him here.' ' Pt noted to be grabbing at his depends. Bladder scanned and straight cathed for 400ml clear yellow urine. Chart reviewed and notes from MD noted and explained again to daughters their
dad's plan of care including GI consult. Reemphasized the importance of his NPO status for now and drinks removed form the room. Aspiration precautions maintained. Pt has IV NSS infusing currently along with Heparin. Events of the evening reported
to next shift.
[2023-11-09] MEDS: DESENEX/MITRAZOL/ZEASORB 1 APPLIC TOPICAL ×2 (08:52→21:12)
[2023-11-09] MEDS: NSS (PRESERVATIVE FREE) 10 ML IV (08:53)
[2023-11-09] MEDS: PROTONIX IV 40 MG IV (08:53)
--- NOTE | 2023-11-09 08:58 | W.PN.CARDCBS ---
Today's Communication / Plan
-
Continue to trend troponin until it peaks; Trop up to 0.3. Likely med tx of nonMI troponin.
Cont beta camilla, now changed to IV Lopressor as NPO. Consider IV Cardizem if HRs rise despite beta camilla therapy.
Cont IV heparin. Anticoagulation with Eliquis and Xarelto is expensive per case management. His daughter is pharmacy specialist and will review with her pharmacy. Pt may require a prior Auth. Reviewed with case management.
Check echo November 09 to reeval EF in setting of rapid AFib
Bp stable. Lasix had been resumed, but now NPO. pBNP was 2550. Monitor volume status.
He had been on losartan but had not been taking. Cont to hold for now to give room for bp in setting of increasing beta camilla.
Discussed with pt and family that would continue with rate control therapy for now in setting of hyperthyroidism.
Impression / Plan
-
.
PCP: EDDIE Gleason
Impression:
Presented with failure to thrive
Atrial fibrillation with RVR�newly diagnosed
Confusion/weakness
Swallowing dysfunction
Medical noncompliance
Elevated troponin
Loss of appetite
Hypertension
Lower extremity edema
Hyperthyroidism - uncontrolled
Echo 09/01/2023: EF 55 to 60%, mild AI
Plan:
Continue to trend troponin until it peaks; Trop up to 0.3. Likely med tx of nonMI troponin.
Cont beta camilla, now changed to IV Lopressor as NPO. Consider IV Cardizem if HRs rise despite beta camilla therapy.
Cont IV heparin. Anticoagulation with Eliquis and Xarelto is expensive per case management. His daughter is pharmacy specialist and will review with her pharmacy. Pt may require a prior Auth. Reviewed with case management.
Check echo November 09 to reeval EF in setting of rapid AFib
Bp stable. Lasix had been resumed, but now NPO. pBNP was 2550. Monitor volume status.
He had been on losartan but had not been taking. Cont to hold for now to give room for bp in setting of increasing beta camilla.
Discussed with pt and family that would continue with rate control therapy for now in setting of hyperthyroidism. Cont tx of hyperthyroidism as per primary service. TSH in ER returned <0.02. Free T4 > 6.99.
Discussed with nursing and family at bedside.
Discussed with primary service.
HPI: Elia is a 63-year-old male with past medical history of hypertension, extremity edema, and hyperthyroidism who presented to ER after being urged by his family. He reportedly has had no appetite for the past 2 weeks and has not been
eating or drinking or taking his medications. He denies any specific complaints, however does note some occasional dizziness at times. In ER, he was found to be in rapid atrial fibrillation on arrival with heart rate 128 bpm. He has no known
history of atrial fibrillation and is unsure how long he has been in this rhythm. He notes he has had episodes of confusion and difficulty with word finding recently and also has had episodes of weakness. He was given 5 mg of IV Lopressor and was
started on heparin drip given new rapid A-fib. Lab work revealed elevated troponin at 0.037 with elevated proBNP 2550. He also was noted to have TSH <0.02. Free T4 returned >6.99. Chest x-ray was negative. He is admitted for further workup and
evaluation of hyperthyroidism and rapid A-fib. Cardiology consulted for evaluation. He has no acute complaints at this time.
Progress Note - Egg And Spice Mixer
Subjective
Date of Service: November 09, 2023
Pt seen and examined. No cp or dyspnea.
Objective
Labs:
11/09/23 03:54
11/09/23 03:54
Labs
Hgb 11.1 g/dL (13.0-18.0) L 11/09/23 03:54
Hct 34.1 % (39.0-52.0) L 11/09/23 03:54
Plt Count 185 10^3/uL (130-400) 11/09/23 03:54
PT 17.8 Sec (11.4-14.6) H 11/07/23 22:00
INR 1.48 11/07/23 22:00
APTT 86.4 Sec (23.4-35.0) H 11/09/23 03:54
Sodium 137 mmol/L (135-145) 11/09/23 03:54
Potassium 4.6 mmol/L (3.5-5.1) 11/09/23 03:54
BUN 66 mg/dl (9-20) H 11/09/23 03:54
Creatinine 1.0 mg/dL (0.7-1.3) 11/09/23 03:54
Glucose 119 mg/dl (70-99) H 11/09/23 03:54
Troponins
11/07/23 11/07/23 11/07/23
14:21 17:04 22:00
Troponin I 0.037 H* 0.042 H* 0.043 H*
11/08/23 11/08/23
07:40 13:59
Troponin I 0.191 H* 0.360 H* D
Vital Signs and I&O:
Vital Signs
Temp Pulse Resp BP Pulse Ox
98.1 F 108 36 135/73 95
11/09/23 07:41 11/09/23 07:41 11/09/23 07:41 11/09/23 07:41 11/09/23 07:41
Vital Signs
Temp Pulse Resp BP Pulse Ox
98.1 F 108 36 135/73 95
11/09/23 07:41 11/09/23 07:41 11/09/23 07:41 11/09/23 07:41 11/09/23 07:41
Intake & Output
11/07/23 11/08/23 11/09/23 11/10/23
06:59 06:59 06:59 06:59
Intake Total 480 / 480 953 / 953
Output Total 400 / 400 400 / 400
Balance 80 / 80 953 / 953 -400 / -400
Physical Exam
Physical Exam
General: No acute distress, lethargic
Neck: Negative JVD
Heart: Irregularly irregular, Negative S3 positive S1/S2, Negative S4, No murmur
Lungs: CTA b/l, negative wheezes/rales/rhonchi
Abd: Positive BS, NT/ND, neg rebound/rigidity/guarding
Ext: Negative cyanosis/clubbing/edema
Neuro: nonfocal
[2023-11-09] MEDS: NSS 1000 IV (09:04)
--- NOTE | 2023-11-09 10:00 | PTCARENOTE ---
At bedside with Dr Mccartney to discuss patients plan of care to patients daughters. Both daughters were informed of patients strict NPO status along with Video Swallow Study 11/10/23. As per Dr Mccartney, speech evaluation ordered again for today. Both
Daughters verbalized understanding of evaluation and study. Order placed for speech evaluation STAT. Dr Mccartney informed both daughters of a Neurology consult/evaluation. Both daughters verbalized understanding and agreed for the consultation.
Neurology made aware of consultation. Dr Mccartney informed both daughters of Cardiology managing patients Afib and Heparin GTT. Both daughters verbalized understanding of Cardiology consultation/management. Daughters were updated with the care and
management of patient and verbalized understanding of all information given. All questions/concerns were answered with myself and Dr Mccartney at bedside. Will continue to closely monitor patient and update both daughters with patients care.
[2023-11-09 10:32] LABS: Troponin I 0.601 ng/ml
[2023-11-09 11:24] VITALS: BP 133/78
--- NOTE | 2023-11-09 13:12 | CON.NEURO4 ---
Consultation - Neurology 4
-
CONSULTING PHYSICIAN: Ramona Nichole
REFERRING PHYSICIAN: Hospitalist
DICTATED BY: Ramona Nichole
DATE/TIME OF REQUEST: 11/09/23
DATE/TIME OF CONSULTATION: 11/09/23
Reason for Consultation: Dysphagia
History of Present Illness:
Patient is a 63-year-old male with a past ministry of hypertension, hyperthyroidism, chronic lower extremity edema presented to hospital with generalized weakness and failure to thrive was admitted on 11/06. He has since then been treated for atrial
fibrillation with rapid ventricular response as well as hyperthyroidism. He was noted to have oropharyngeal dysphagia by speech therapy bedside evaluation which led to brain MRI which showed no acute infarction and significant small vessel ischemic
disease as well as chronic infarcts.
Patient reports she has had around 75 pound weight loss over the past several month. He has not observed any symptoms of dysphagia or odynophagia. Currently he does not have any dentures and so his speech is not quite normal. Patient relates
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 He does describe diplopia which is binocular over the past couple. He denies any focal weakness of the limbs with more of a generalized weakness. Denies any urinary or bowel incontinence or urinary
retention.
No tremor or abnormal movements. No dyspnea.
Past Medical History: Atrial fibrillation, hypertension, hyperthyroidism lower extremity edema
Surgical History: None
Family History: No hereditary neurologic disorders
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
Allergies: No known drug allergies
Review of Symptoms:
Patient denies any fever, headache, chest pain, shortness of breath, GI or symptoms.
Physical Exam:
Middle-age man appears older than his stated age with decreased muscle mass throughout, eyes are clear oropharynx is clear neck with no obvious masses, heart rate regular breathing unlabored abdomen soft nontender, mild lower extremity edema
nonpitting no rashes
Neurologic Examination:
Drowsy, some mild difficulty with complex commands, no aphasia, awake and recalls recent events.
Cranial nerve examination shows hypophonic voice with dysarthria, wasting of muscle mass in the temporal areas bilaterally, tongue has decreased muscle bulk with no obvious fasciculations, no ptosis. There is right eye hyper and exotropia. There
is significant limitation in extraocular movements/opthalmoplegia in both eyes with poor upgaze and downgaze in both eyes, mild limitation in abduction and abduction of both eyes. No ptosis. Smile is symmetric.
Motor examination shows decreased muscle bulk throughout with muscle atrophy in the temporal muscles of the face as well as the thenar eminences of the hands bilaterally. No fasciculations or tremor is seen. Increased tone in the legs bilaterally.
Neck flexion and extension. 4+/5. Shoulder abduction 4/5, arm flexion 5/5 finger flexion 5/5, hip flexion 4/5 bilaterally ankle plantarflexion 5/5 bilaterally.
Reflexes are symmetric with 2+ biceps triceps brachioradialis negative Berta's in the hands bilaterally. Patellar 4+ bilaterally, achilles 3+ bilaterally, plantar response extensor on right toe, equivocal on left toe.
Mildly decreased light touch and pinprick distally
Normal finger to nose
Gait deferred
Lab Results:
Neuro Imaging: Brain MRI chronic lacunar infarcts, severe ischemic small vessel disease
Impressions
1. Oropharyngeal dysphagia along with extraocular movement abnormalities, muscle atrophy, signs of hyperreflexia. Severe weight loss over past couple of months. Hyperthyroidism may lead to a lot of these changes but would need to evaluate for
other possible causes. In the differential diagnosis would include myasthenia gravis, motor neuron disease, doubtful a muscular dystrophy or inflammatory myopathy. Hyperreflexia not consistent with neuropathy
2. Significant small vessel ischemic disease and chronic infarcts on brain MRI with concern for potential vascular cognitive impairment
3. Hyperthyroidism
4. Hypertension
5. Atrial fibrillation
Recommendations:
1. Check CPK, myasthenia antibodies with MUSk, acetylcholine blocking, binding, modulating antibodies
2. Recommend EMG testing as inpatient
3. Consideration for MRI of the cervical spine
4. Is on heparin infusion for atrial fibrillation, eventually transitioning to PO anticoagulation
5. Agree with video swallow examination, speech therapy input appreciated
6. NPO for now and aspiration precautions
7. Depending on EMG results should consider steroids for possible thyroid eye disease
Will follow
Discussed patient care with: Hospitalist, patient and his family
[2023-11-09 15:14] VITALS: BP 133/76
[2023-11-09 18:40] VITALS: BMI 21.3
[2023-11-09 19:35] VITALS: BP 128/65
[2023-11-09 23:00] VITALS: BP 169/71
--- NOTE | 2023-11-09 23:00 | PTCARENOTE ---
Pt's daughters asking to stay the night. Nursing supervisor screen making Anaya notified that family is asking to stay and pt is in a semi-private room. Collections Attorney Anaya reviewed visitor guidelines and told this RN that the family is welcome to stay in the
lounge but cannot stay in pt's room overnight. Pt's daughters notified of this and verbalize understanding but continue to stay in pt's room. This RN reviewed the plan of care and medications being given to the pt with the pt's daughters, who
verbalize understanding of reasoning for their father's medications as well as procedures ordered for him.
[2023-11-10] VITALS (8 sets, daily range): BP systolic 141–177; BP diastolic 65–140; PULSE 108; O2SAT 98
[2023-11-10] MEDS: LOPRESSOR 5 MG IV ×5 (00:55→23:30)
[2023-11-10] MEDS: NSS 1000 IV (01:50)
[2023-11-10 07:37] LABS: % Basophils 0.2 % (0-2); % Eosinophils 0.6 % (0-6); % Immature Granulocytes 0.6 % (0-0.5); % Lymphocytes 19.9 % (20.5-51.1); % Monocytes 8.3 % (1.7-9.3); % Neutrophils 70.4 % (42.2-75.2); Absolute Lymphocytes 1.1 10^3/uL (1.2-3.4); Absolute Monocytes 0.4 10^3/uL (0.1-0.6); Absolute Neutrophils 3.8 10^3/uL (1.4-6.5); Hematocrit 34.9 % (39.0-52.0); Hemoglobin 11.2 g/dL (13.0-18.0); Mean Corp Hgb Conc. 32.1 g/dL (33.0-37.0); Mean Corpuscular Hgb 26.7 pg (27.0-31.0); Mean Corpuscular Volume 83.1 fL (80.0-94.0); Mean Platelet Volume 11.2 fL (7.4-10.4); Nucleated Red Blood Cells % 0 % (-); Platelet Count 146 10^3/uL (130-400); Red Cell Dist. Width 14.6 % (11.5-14.5); White Blood Cell Count 5.3 10^3/uL (4.8-10.8)
[2023-11-10 07:46] LABS: APTT 54.9 Sec (23.4-35.0)
[2023-11-10 08:09] LABS: Calcium 9.6 mg/dl (8.4-10.2)
[2023-11-10 08:30] LABS: ALT (SGPT) 54 U/L (0-50); AST (SGOT) 49 U/L (17-59); Albumin 3.2 g/dl (3.5-5.0); Alkaline Phosphatase 134 U/L (38-126); Blood Urea Nitrogen 46 mg/dl (9-20); Calcium 9.6 mg/dl (8.4-10.2); Carbon Dioxide 19 mmol/L (22-30); Chloride 111 mmol/L (98-107); Creatine Phosphokinase 51 U/L (55-170); Estimated Creatinine Clearance 106 ml/min; Glucose 110 mg/dl (70-99); Sodium 140 mmol/L (135-145); Total Bilirubin 1.1 mg/dl (0.2-1.3); Total Protein 6.2 g/dl (6.3-8.2); eGFR > 60.00
--- NOTE | 2023-11-10 08:49 | W.PN.CARDCBS ---
Addendum entered and electronically signed by Abdirahman Shah DO 11/10/23 11:07:
I saw and examined the patient.
The Cnc Machine Setter's note was reviewed and I agree with the note.
Comment:
General: No acute distress, awake and alert
Neck: Negative JVD
Heart: Irreguarly irregular, Negative S3 positive S1/S2, Negative S4, No murmur
Lungs: CTA b/l, negative wheezes/rales/rhonchi
Abd: Positive BS, NT/ND, neg rebound/rigidity/guarding
Ext: Negative cyanosis/clubbing/edema
Neuro: nonfocal
Plan:
Cont IV lopressor for rate control. Cont rate control strategy for now.
Cont IV Heparin until no further procedures planned then transition to oral anticoagulation
No rhythm control therapy for now given hyperthyroidism. Once hyperthyroidism corrected, can eventually consider rhythm control.
Ongoing swallowing eval
Neuro evaluating change in mental status.
Echo pending
Reviewed with primary service and with family at bedside.
Original Note:
Today's Communication / Plan
-
Continue anticoagulation w/ heparin
Rate control w/ IV lopressor while NPO
Await GI evaluation
Impression / Plan
-
PCP: EDDIE Gleason
Shear Operator: None prior to arrival, initially seen by Dr. Nieves
Impression:
Presented with failure to thrive
Atrial fibrillation with RVR�newly diagnosed
Confusion/weakness
Swallowing dysfunction
Medical noncompliance
Elevated troponin
Loss of appetite
Hypertension
Lower extremity edema
Hyperthyroidism - uncontrolled
Echo 09/01/2023: EF 55 to 60%, mild AI
Echo 11/10/2023: Study pending
Plan:
-Presented with failure to thrive and noncompliance with medications. Uncontrolled hyperthyroidism noted on arrival with TSH < 0.02 and free T4 > 6.99.
-Noted to be in rapid atrial fibrillation on arrival which was a new diagnosis of unknown duration. Likely related to uncontrolled hyperthyroidism.
-Initially started on Toprol for rate control, however has been transitioned to IV lopressor Q6H as he is now NPO due to swallowing dysfunction.
-GI consulted by primary service as he was found to have tight upper esophageal sphincter on video swallow.
-Currently on heparin drip for anticoagulation. Eventually transition to oral anticoagulation. Daughter is a certified pharmacy technician and will confirm pricing. Both Eliquis and Xarelto expensive per CM.
-Echo pending 11/09 to re-evaluate EF in setting of rapid Afib.
-ProBNP elevated at 2550. Lasix had been restarted, but is on hold while NPO.
-Troponin elevation noted, up to 0.601. Will continue to trend to peak. Suspect nonischemic myocardial injury.
-MRI of brain showed significant small vessel ischemic disease and chronic infarcts. Neurology following
HPI: Elia is a 63-year-old male with past medical history of hypertension, extremity edema, and hyperthyroidism who presented to ER after being urged by his family. He reportedly has had no appetite for the past 2 weeks and has not been
eating or drinking or taking his medications. He denies any specific complaints, however does note some occasional dizziness at times. In ER, he was found to be in rapid atrial fibrillation on arrival with heart rate 128 bpm. He has no known
history of atrial fibrillation and is unsure how long he has been in this rhythm. He notes he has had episodes of confusion and difficulty with word finding recently and also has had episodes of weakness. He was given 5 mg of IV Lopressor and was
started on heparin drip given new rapid A-fib. Lab work revealed elevated troponin at 0.037 with elevated proBNP 2550. He also was noted to have TSH <0.02. Free T4 returned >6.99. Chest x-ray was negative. He is admitted for further workup and
evaluation of hyperthyroidism and rapid A-fib. Cardiology consulted for evaluation. He has no acute complaints at this time.
Progress Note - Shear Operator
Subjective
Date of Service: November 10, 2023
Objective
Labs:
11/10/23 06:24
11/10/23 06:24
Labs
Hgb 11.2 g/dL (13.0-18.0) L 11/10/23 06:24
Hct 34.9 % (39.0-52.0) L 11/10/23 06:24
Plt Count 146 10^3/uL (130-400) D 11/10/23 06:24
PT 17.8 Sec (11.4-14.6) H 11/07/23 22:00
INR 1.48 11/07/23 22:00
APTT 54.9 Sec (23.4-35.0) H 11/10/23 06:24
Sodium 140 mmol/L (135-145) 11/10/23 06:24
Potassium 4.0 mmol/L (3.5-5.1) 11/10/23 06:24
BUN 46 mg/dl (9-20) H 11/10/23 06:24
Creatinine 0.7 mg/dL (0.7-1.3) 11/10/23 06:24
Glucose 110 mg/dl (70-99) H 11/10/23 06:24
Troponins
11/07/23 11/07/23 11/07/23
14:21 17:04 22:00
Troponin I 0.037 H* 0.042 H* 0.043 H*
11/08/23 11/08/23 11/09/23
07:40 13:59 09:35
Troponin I 0.191 H* 0.360 H* D 0.601 H*
Vital Signs and I&O:
Vital Signs
Temp Pulse Resp BP Pulse Ox
98.2 F 88 17 155/85 96
11/10/23 07:56 11/10/23 07:56 11/10/23 07:56 11/10/23 07:56 11/10/23 07:56
Vital Signs
Temp Pulse Resp BP Pulse Ox
98.2 F 88 17 155/85 96
11/10/23 07:56 11/10/23 07:56 11/10/23 07:56 11/10/23 07:56 11/10/23 07:56
Intake & Output
11/08/23 11/09/23 11/10/23 11/11/23
06:59 06:59 06:59 06:59
Intake Total 480 / 480 953 / 953 770 / 770
Output Total 400 / 400 700 / 700 350 / 350
Balance 80 / 80 953 / 953 -700 / -700 420 / 420
[2023-11-10] MEDS: NSS (PRESERVATIVE FREE) 10 ML IV (10:11)
[2023-11-10] MEDS: TAPAZOLE PO (10:11)
[2023-11-10] MEDS: PROTONIX IV 40 MG IV (10:12)
[2023-11-10] MEDS: DESENEX/MITRAZOL/ZEASORB 1 APPLIC TOPICAL ×2 (10:13→19:58)
--- NOTE | 2023-11-10 10:32 | W.PN.HOSP.TC ---
Addendum entered and electronically signed by Damon Isaac DO 11/10/23 12:24:
Multifactorial metabolic encephalopathy -likely due to combination of hyperthyroidism, vascular dementia, etc.
Original Note:
Today's Communication/Plan
-
GI consult
Assessment / Plan
Assessment / Plan
Gen-awake, alert, NAD
HEENT-NC, AT, anicteric, clear oral mm
Neck-supple
CV-reg, no M, +S1/S2
Lungs-clear B/L
Abd-soft, NT, ND
Ext-no edema
Musculoskeletal-no cyanosis, clubbing
Skin-warm and dry
Neuro-grossly non-focal
Psych-calm, cooperative
Severe dysphagia -video swallowing study completed today. Speech therapy recommending n.p.o. Recommend GI consult due to tight upper esophageal sphincter. Continue IV fluids pending GI input. Family wants to hold off on NG tube.
Unclear etiology of dysphagia. Neurology input appreciated. Brain MRI negative for acute stroke. Does show chronic microvascular ischemic changes. Possible vascular dementia.
Defer to neurology regarding further workup.
A Fib RVR -likely triggered by hyperthyroidism. Now rate controlled. Appreciate cardiology input. Continue IV heparin, IV metoprolol [id number]-muo-fludl. Eventual transition to oral anticoagulation on discharge.
Hyperthyroidism -methimazole restarted, but his dysphagia will make it difficult. Outpatient follow-up with endocrinology.
Elevated troponin -suspect acute nonischemic myocardial injury due to acute illness. Troponin has not peaked yet.
Hyponatremia -resolved.
Normocytic anemia -likely chronic. Outpatient follow-up.
Essential HTN -blood pressure is elevated. Was on furosemide and losartan at home.
Full code
Family updated at the bedside.
Anticipated Discharge: > 48 hours
Subjective/Interval History
-
Date of Service: November 10, 2023
Patient seen and examined. Daughters at the bedside. No complaints.
Objective Data
-
Labs:
Laboratory Results
11/10/23 11/10/23
06:24 06:24
WBC 5.3
Hgb 11.2 L
Hct 34.9 L
Plt Count 146 D
APTT 54.9 H
Sodium 140
Potassium 4.0
Chloride 111 H
Carbon Dioxide 19 L
BUN 46 H
Creatinine 0.7
Glucose 110 H
Calcium 9.6 9.6
Total Bilirubin 1.1
AST 49
ALT 54 H
Alkaline Phosphatase 134 H
Vital Signs:
Vital Signs
Temp Pulse Resp BP Pulse Ox
98.2 F 88 17 155/85 96
11/10/23 07:56 11/10/23 07:56 11/10/23 07:56 11/10/23 07:56 11/10/23 07:56
I&O
11/09/23 11/10/23 11/11/23
06:59 06:59 06:59
Intake Total 953 / 953 770 / 770
Output Total 700 / 700 350 / 350
Balance 953 / 953 -700 / -700 420 / 420
Review of Systems
-
History Source: Patient
All other systems: Reviewed and negative
[2023-11-10] MEDS: 0.45%NACL 1000 IV (10:58)
[2023-11-10 11:03] LABS: Troponin I 0.505 ng/ml
--- NOTE | 2023-11-10 11:43 | W.PN.GI.CBS2 ---
Addendum entered and electronically signed by Markell Magaña MD 11/10/23 17:42:
I saw and examined the patient.
The AUTO T[employer]E [employer] MECHANIC or PA's note was reviewed and I agree with the note.
Comment:
Pt with marked thyroid dysfunction. Oropharngeal dysphagia confirmed by Speech, wt loss
NGT in place, abd soft
impression
GI symptoms likely related to thyroid dysfunciton
plan:
oropharyngeal findings likely related to thyroid pharyngeal myopathy coupled with discomfort with speech exam, recommend NGT for feeding and for stretching the UES in case there is a web
correct thyroid dysfunction by endocrine/primary
if symptoms don't improve will do further evaluation
d/w Dr Isaac and daughters
Original Note:
Today's Communication / Plan
-
as per plan
Assessment / Plan
-
Pt is a 63yo with hx HTN, hyperthyroidism on methimazole but not taking correctily prior to admission, LE enema noted with failure to thrive. On admission noted with Afib with RVR and marked thyroid abnormality with failure to thrive and asked to
evaluate. Pt also noted with mild hyponatremia, elevated troponin, elevated bilirubin 2.2, alk phos 150.
-failure to thrive
-severe calorie malnutrition
-nausea/vomiting
-dysphagia
-diarrhea
-mild bili and alk phos elevation
-tachycardia
-afib with RVR
-hx hyperthyroidism off medication prior to admission with marked thyroid dysfunction on admission with TSH <0.02, T4 6.99, T3 >22.8
-wt loss
-mild anemia
-urinary retention
-mild bili and alk phos elevation
-hyponatremia
-increased troponin
-hypoalbuminemia
other medical problems:
HTN
Peripheral edema
PLAN:
Etiology of multiple symptoms including wt loss, FTT, diarrhea, afib, weakness related to underlying thyroid dysfunction vs other
cont to treat correct thyroid dysfunction per medical team as reviewed with endocrine assist
currently on Methimazole 10mg daily. Discussed with family, was not taking meds for likely over 2 weeks.
await speech recommendation may need VSE
will add dietary consult for severe calorie malnutrition cont oral diet - with severe wt loss if not improving may need to consider supplemental feeding
will be at risk for refeeding syndrome
trend LFT's
Failed Video swallow, would retest when thryoid issues corrected
Family to decide if they would allow NGT which would be larger caliber and would open up UES.
Subjective
Subjective
Date of Service: November 10, 2023
Patient seen at bedside with daughters present. Denies any GI complaints but is presently somewhat confused. Patient failed video swallow. Discussed with family. Neurology coming to see patient as well for evaluation. Discussed with daughter about
NGT for meds to correct thyroid issue and then retest. Can use Mitts if needed if patient pulls out. Family to discuss. Also discussed with Medical Attending.
Objective
Data Reviewed
Laboratory Data:
Laboratory Results
11/10/23 06:24
11/10/23 06:24
Laboratory Results
PT 17.8 Sec (11.4-14.6) H 11/07/23 22:00
INR 1.48 11/07/23 22:00
APTT 54.9 Sec (23.4-35.0) H 11/10/23 06:24
Phosphorus 5.4 mg/dl (2.5-4.5) H 11/08/23 07:40
Magnesium 2.2 mg/dl (1.6-2.3) 11/08/23 07:40
Total Bilirubin 1.1 mg/dl (0.2-1.3) 11/10/23 06:24
AST 49 U/L (17-59) 11/10/23 06:24
ALT 54 U/L (0-50) H 11/10/23 06:24
Alkaline Phosphatase 134 U/L (38-126) H 11/10/23 06:24
Vital Signs and I&O:
Vital Signs
Temp Pulse Resp BP Pulse Ox
98.2 F 88 17 155/85 96
11/10/23 07:56 11/10/23 07:56 11/10/23 07:56 11/10/23 07:56 11/10/23 07:56
I&O
11/09/23 11/10/23 11/11/23
06:59 06:59 06:59
Intake Total 953 / 953 770 / 770
Output Total 700 / 700 350 / 350
Balance 953 / 953 -700 / -700 420 / 420
Physical Exam
Physical Exam
HEENT: Anicteric
Cardiology: Irregular Rate/Rhythm
Pulmonary: Clear (anterior)
GI: Soft, Non Distended, Non Tender and Normal Bowel Sounds
Extremities: Edema (+2 edema)
Neuro: Other (appears somewhat confused)
--- NOTE | 2023-11-10 11:55 | PN.CDI ---
CDI
- -
CDI:
Physician Documentation Request
Admit Date: 11/07/23 17:29
Dear Doctor Poncho,
Please review the following and provide your response in the progress notes.
Clinical Indicators:
PN, 11/07
#A Fib RVR
#Hyperthyroidism
#Elevated troponin, likely elevated troponin
#...due to non-ischemic myocardial injury but....
#Hyponatremia
#Anemia
#Thyroid tests consistent with hyperthyroidism (TSH less than 0.02, free T4 more than 6.9, free T3 more than 22.8)
#Continue increased doses of methimazole 10 mg p.o. daily (discussed with fundraiser yesterday)
#Cortisol level 43.7
Progress Note Update, 11/07
#patient taking tubes out, tried restraining with Mitts.
#Patient seems to be more agitated and restless now as he wants it to be off,
#...getting verbal with staff,
#Will give one time dose of Ativan 0.5mg Iv.
11/09/23 08:32 - Patient Care Note
#Pt remains confused throughout the night.
#Pt attempting to get OOB, agitated with slurred garbled speech,
#...consistently pulling at IV lines.
#B/L mitts ordered and attempted to place on pt but pt became more agitated,
#...yelling and attempting to strike this nurse.
#Order received for IV Ativan.
#Pt slept intermittently after administration but
#...again pulling at IV lines including Heparin which dislodged with bleeding.
#Bed alarm maintained for pt safety.
Cardiology, PN, 11/08
#Confusion/weakness
PN, 11/09
#Brain MRI negative for acute stroke.
#...Does show chronic microvascular ischemic changes.
#Possible vascular dementia.
#A Fib RVR -likely triggered by hyperthyroidism. ....
Based on the above and your clinical assessment, please clarify the most likely etiology of the confusion/altered mental status/weakness.....
Multifactorial Metabolic Encephalopathy due to (please specify, hyperthyroidism, hypertension, hyponatremia, vascular dementia, severe protein calorie malnutrition, adult failure to thrive, metabolic derangements, etc....)
Acute Delirium - indicate known or suspected etiology such as postoperative, due to opioids or other drugs, non compliance, etc. Can also indicate unknown or mixed etiologies.
Other
Use of terms such as suspected, likely, concern for, or probable (associated with a specific diagnosis that is being evaluated, monitored, or treated as if it exists) are acceptable and can be coded in the inpatient setting, when documented at the
time of discharge.
Thank you,
Yenni Armstrong RN BSN CCDS
CDI Specialist
please contact via tiger text
Please use your independent medical judgment in providing your response.
[2023-11-10] MEDS: HEPARIN 25000 UNITS/250 ML IV (12:57)
--- NOTE | 2023-11-10 13:30 | PTCARENOTE ---
Ciro gunn #[id number] NGT inserted into pt's LT nares without difficulty. Daughters at bedside to assist and make sure pt did not pull tube out. Pt tolerated well. Meds to be given through tube.
[2023-11-10] MEDS: TAPAZOLE 10 MG PO (14:04)
--- NOTE | 2023-11-10 14:40 | W.PN.NEURO.1 ---
Today's Communication / Plan
-
Await myasthenia antibodies with MUSk, acetylcholine blocking, binding, modulating antibodies
Appreciate EMG testing as inpatient
Consideration for MRI of the cervical spine
Agree with anticoagulation
Agree with video swallow examination, speech therapy input appreciated
Neuro Assessment/Plan
Assessment
Neuro Imaging: Brain MRI chronic lacunar infarcts, severe ischemic small vessel disease
Impressions
Oropharyngeal dysphagia along with extraocular movement abnormalities, muscle atrophy, signs of hyperreflexia. Severe weight loss over past couple of months. Hyperthyroidism may lead to a lot of these changes but would need to evaluate for other
possible causes. In the differential diagnosis would include myasthenia gravis, motor neuron disease, much less likely muscular dystrophy or inflammatory myopathy, especially in light of low CPK.
Hyperreflexia not consistent with neuropathy
Significant small vessel ischemic disease and chronic infarcts on brain MRI with concern for potential vascular cognitive impairment
Plan
Recommendations:
Await myasthenia antibodies with MUSk, acetylcholine blocking, binding, modulating antibodies
Appreciate EMG testing as inpatient
Consideration for MRI of the cervical spine
Agree with anticoagulation
Agree with video swallow examination, speech therapy input appreciated
We will follow
Subjective/Objective
Subjective Data
Date of Service: November 10, 2023
Patient is unaware of symptomatology currently
Objective Data
Vital Signs
Temp Pulse Resp BP Pulse Ox
36.8 C 88 17 155/85 96
11/10/23 07:56 11/10/23 07:56 11/10/23 07:56 11/10/23 07:56 11/10/23 07:56
Lab Results
11/10/23 06:24
11/10/23 06:24
PT 17.8 Sec (11.4-14.6) H 11/07/23 22:00
INR 1.48 11/07/23 22:00
APTT 54.9 Sec (23.4-35.0) H 11/10/23 06:24
Sodium 140 mmol/L (135-145) 11/10/23 06:24
Potassium 4.0 mmol/L (3.5-5.1) 11/10/23 06:24
BUN 46 mg/dl (9-20) H 11/10/23 06:24
Glucose 110 mg/dl (70-99) H 11/10/23 06:24
Calcium 9.6 mg/dl (8.4-10.2) 11/10/23 06:24
Calcium 9.6 mg/dl (8.4-10.2) 11/10/23 06:24
Phosphorus 5.4 mg/dl (2.5-4.5) H 11/08/23 07:40
Dko-F-Tkliaqdtgbk Pept 2550 pg/ml 11/07/23 14:21
Vitamin B12 420 pg/ml (239-931) 11/08/23 07:40
Patient Allergies
No Known Allergies Allergy (Unverified 11/07/23 13:27)
Review of Systems
-
Unable to obtain full review of systems at this time due to: Other (Cognitive difficulties and easily distractibility)
History Source: Patient
All other systems: Reviewed and negative
Neuro: Negative Dizzy or Headache
Physical Exam
-
General: No Apparent Distress and Older than Stated Age
Eyes: Round OU, [place] Conjunctivae, No Ptosis and Other (Mild proptosis on the right greater than left)
HEENT: Anicteric and Moist Mucous Membranes
Neck: Full Range of Motion
Respiratory: No Dyspnea
Cardiac: No JVD
Extremities: No Clubbing, No Cyanosis and Edema +1 (Distally in bilateral lower extremities)
Psych: Negative Intact Judgement/Insight
Extended Neurological Exam
Mood & Affect: Negative Affect Unremarkable (Suddenly irritable)
Attention Span & Concentration: Awake, Alert, Interactive, Severe Difficulty with 2 Step Request and Other (Easily distracted, tangential)
Memory: Reduced (For current year and month) and Unable to Recall Personal History
Tremor: Hand Tremor Absent and Head Tremor Absent
Involuntary Movement: None
Speech: Quality Unremarkable and Dysarthric
Cranial Nerve II: Left Eye: Pupillary Reactivity Unremarkable, Pupillary Size Unremarkable and Visual Cox Grossly Intact
Cranial Nerve II: Right Eye: Pupillary Reactivity Unremarkable, Pupillary Size Unremarkable and Visual Cox Grossly Intact
Cranial Nerves III, IV, : Extraocular Movement: Reduced (Movement in right eye in all directions, greater mobility with left eye movement)
Cranial Nerve VII: Facial Symmetry: Normal Facial Symmetry
Cranial Nerve VIII: Hearing: Unremarkable Hearing to Normal Conversational Volume
Cranial Nerve XI: Shoulder Shrug: Reduced on Right and Reduced on Left
Muscle Strength, Overall: Reduced (Proximally bilaterally slightly worse on the right than left upper extremities; intact distal strength)
Muscle Bulk & Tone: Tone Unremarkable and Decreased Bulk
Pronator Drift: No Drift in Upper Extremities
Touch Sensation: Unremarkable
Coordination: Reaches for Objects without Difficulty
Gait & Station: Unable to Assess
Data Reviewed
-
Labs: Report Reviewed
Reviewed with: Physician, Nurse Practioner, Patient and Family
Old Records: Summarized
--- NOTE | 2023-11-10 15:42 | PTOTSP ---
Video Swallow Examination
Patient presents with mild oral and severe pharyngeal dysphagia (with gross impairments across all domains). There was severe retention in the pharynx due to poor pharyngoesophageal segment opening and deep laryngeal penetration to the vocal folds
during/after the swallow due to poor pharyngeal clearance and poor airway closure. Penetration temporarily cleared with spontaneous throat clearing. Patient is at an elevated risk for aspiration and airway obstruction. Further trials were held
after moderately thick via tsp for this reason. Etiology of dysphagia is unknown. Please see patient care note for full details of penetration/aspiration and swallowing physiology.
Recommend:
1. NPO - consider non-oral means of nutrition/hydration
2. Medications - via non-oral means
3. Hold Aspiration Risk Hydration Protocol (ARHP) at this time due to severe pharyngeal dysphagia and confusion.
4. Oral care 3x daily
5. Dysphagia tx at the acute care level for patient/family education, to determine appropriateness for ARHP, and pharyngeal exercises pending etiology of dysphagia.
6. GI to further assess given poor PES opening. (This may be due to poor airway closure but cannot r/o other factors.)
--- NOTE | 2023-11-10 16:40 | CM ---
Chart reviewed and employment evaluator/case manager met with patient and patient's daughter this am, patient is more confused, failed video swallow, family want to hold off on feeding tube per physician note, patient's lives with his daughter Temitope, needs follow up
from employment evaluator/case manager as to final plan, PT/OT evaluations.
Plan; To follow up with patient and assist with discharge planning.
--- NOTE | 2023-11-10 17:43 | W.PN.UPDATE ---
Update Note
Progress Note Update
for billing purposes only
[2023-11-10 21:36] LABS: APTT 87.9 Sec (23.4-35.0)
[2023-11-11] VITALS (7 sets, daily range): BP systolic 133–160; BP diastolic 72–81
[2023-11-11] MEDS: 0.45%NACL 1000 IV (00:50)
[2023-11-11] MEDS: HEPARIN 25000 UNITS/250 ML IV ×2 (02:33→15:44)
[2023-11-11 04:32] LABS: Hematocrit 31.8 % (39.0-52.0); Hemoglobin 10.4 g/dL (13.0-18.0); Mean Corp Hgb Conc. 32.7 g/dL (33.0-37.0); Mean Corpuscular Hgb 26.9 pg (27.0-31.0); Mean Corpuscular Volume 82.4 fL (80.0-94.0); Mean Platelet Volume 11.5 fL (7.4-10.4); Platelet Count 109 10^3/uL (130-400); Red Blood Cell Count 3.86 10^6/uL (4.70-6.10); Red Cell Dist. Width 14.3 % (11.5-14.5); White Blood Cell Count 5.9 10^3/uL (4.8-10.8)
[2023-11-11 04:52] LABS: APTT 93.2 Sec (23.4-35.0)
--- NOTE | 2023-11-11 05:12 | PTCARENOTE ---
Addendum entered by Jony Mccall RN 11/11/23 21:43:
CBC added for AM /
Original Note:
Pt's PTT therapeutic, no change in IV heparin drip rate. Platelet level this morning decreased from 146 to 109. [place] PROTOTYPER Matrita Collins notified of pt's platelet level, no new orders at this time. Will continue to monitor.
[2023-11-11 05:33] LABS: ALT (SGPT) 48 U/L (0-50); AST (SGOT) 39 U/L (17-59); Albumin 2.9 g/dl (3.5-5.0); Alkaline Phosphatase 118 U/L (38-126); Direct Bilirubin 0.6 mg/dl (0.0-0.4); Total Bilirubin 1.3 mg/dl (0.2-1.3); Total Protein 5.6 g/dl (6.3-8.2)
[2023-11-11] MEDS: LOPRESSOR 5 MG IV ×3 (05:47→17:05)
--- NOTE | 2023-11-11 06:30 | W.PN.UPDATE ---
Update Note
Progress Note Update
since admit pt platelets have steadily decreased. on heparin gtt. no ss of bleeding. will have to closely monitor platelets. cbc added for am,
--- NOTE | 2023-11-11 08:41 | NS.EMG ---
Electromyogram (EMG) Study
EMG/NCS Summary
EMG/nerve conduction study of the left upper limb, left lower limb, and repetitive nerve stimulation technique was completed at the patient's bedside.
The repetitive nerve stimulation technique recording from the left upper trapezius and left abductor digiti minimi was normal.
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 Electrodiagnostic abnormalities were present in the left L5-S1 nerve root distribution distally but
sparing the more proximally innervated L5-S1 nerve root distribution consistent with chronic length dependent peripheral polyneuropathy rather than L5-S1 radiculopathy.
Fully dictated report and tabular data are to follow.
--- NOTE | 2023-11-11 09:07 | W.PN.NEURO.1 ---
Today's Communication / Plan
-
Start high-dose steroids methylprednisolone 1 g IV x 3 in hopes of remediating any autoantibodies
Check blood work for potential autoantibodies
Neuro Assessment/Plan
Assessment
Neuro Imaging: Brain MRI chronic lacunar infarcts, severe ischemic small vessel disease
Impressions
Oropharyngeal dysphagia along with extraocular movement abnormalities, muscle atrophy, signs of hyperreflexia. Severe weight loss over past couple of months.
Hyperthyroidism may lead to a lot of these changes but would need to evaluate for other possible causes. In the differential diagnosis would include myasthenia gravis, thyroid peroxidase autoantibodies
Hyperreflexia not consistent with neuropathy
Significant small vessel ischemic disease and chronic infarcts on brain MRI with concern for potential vascular cognitive impairment
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
Plan
Recommendations:
Start high-dose steroids methylprednisolone 1 g IV x 3 in hopes of remediating any autoantibodies
Check blood work for potential autoantibodies
Await myasthenia antibodies with MUSk, acetylcholine blocking, binding, modulating antibodies
Consideration for MRI of the cervical spine
Agree with anticoagulation
We will follow
Subjective/Objective
Subjective Data
Date of Service: November 11, 2023
Patient does not report any new symptoms.
Objective Data
Vital Signs
Temp Pulse Resp BP Pulse Ox
37.0 C 109 18 140/79 98
11/11/23 08:07 11/11/23 08:07 11/11/23 08:07 11/11/23 08:07 11/11/23 08:07
Lab Results
11/11/23 04:20
11/10/23 06:24
PT 17.8 Sec (11.4-14.6) H 11/07/23 22:00
INR 1.48 11/07/23 22:00
APTT 93.2 Sec (23.4-35.0) H 11/11/23 04:20
Sodium 140 mmol/L (135-145) 11/10/23 06:24
Potassium 4.0 mmol/L (3.5-5.1) 11/10/23 06:24
BUN 46 mg/dl (9-20) H 11/10/23 06:24
Glucose 110 mg/dl (70-99) H 11/10/23 06:24
Calcium 9.6 mg/dl (8.4-10.2) 11/10/23 06:24
Calcium 9.6 mg/dl (8.4-10.2) 11/10/23 06:24
Phosphorus 5.4 mg/dl (2.5-4.5) H 11/08/23 07:40
Ksy-Z-Dxrbfygadgs Pept 2550 pg/ml 11/07/23 14:21
Vitamin B12 420 pg/ml (239-931) 11/08/23 07:40
Patient Allergies
No Known Allergies Allergy (Unverified 11/07/23 13:27)
Review of Systems
-
Unable to obtain full review of systems at this time due to: Dementia
History Source: Patient
All other systems: Reviewed and negative
Physical Exam
-
General: No Apparent Distress and Older than Stated Age
Eyes: Round OU, [place] Conjunctivae, No Ptosis and Other (Mild proptosis on the right greater than left)
HEENT: Anicteric and Moist Mucous Membranes
Neck: Full Range of Motion
Respiratory: No Dyspnea
Cardiac: No JVD
GI: Non-distended
Extremities: No Clubbing, No Cyanosis and Edema +1 (Distally in bilateral lower extremities)
Psych: Negative Intact Judgement/Insight
Extended Neurological Exam
Mood & Affect: Negative Affect Unremarkable (Suddenly irritable)
Attention Span & Concentration: Awake, Alert, Interactive and Other (Easily distracted, tangential)
Memory: Reduced (For current year and month) and Unable to Recall Personal History
Tremor: Hand Tremor Absent and Head Tremor Absent
Involuntary Movement: None
Speech: Quality Unremarkable and Dysarthric
Cranial Nerve II: Left Eye: Pupillary Size Unremarkable and Visual Cox Grossly Intact
Cranial Nerve II: Right Eye: Pupillary Size Unremarkable and Visual Cox Grossly Intact
Cranial Nerves III, IV, : Extraocular Movement: Reduced (Movement in right eye in all directions, greater mobility with left eye movement)
Cranial Nerve VII: Facial Symmetry: Normal Facial Symmetry
Cranial Nerve VIII: Hearing: Unremarkable Hearing to Normal Conversational Volume
Cranial Nerve XI: Shoulder Shrug: Reduced on Right and Reduced on Left
Muscle Strength, Overall: Reduced (Proximally bilaterally slightly worse on the right than left upper extremities; intact distal strength)
Muscle Bulk & Tone: Tone Unremarkable and Decreased Bulk
Touch Sensation: Unremarkable
Coordination: Reaches for Objects without Difficulty
Gait & Station: Unable to Assess
Data Reviewed
-
Labs: Ordered and Report Reviewed
Reviewed with: Physician, Patient and Family
Old Records: Summarized
Medications
-
Medications:
Generic Name Dose Route Start Last Admin
Trade Name Freq PRN Reason Stop Dose Admin
Heparin Sodium 25,000 units in 250 mls @ 0 mls/hr 11/07/23 15:45 11/11/23 02:33
Heparin 66032 Units/250 Ml IV 250 mls
PER PROTOCOL MCKENNA Administration
Protocol
Per Protocol
Sodium Chloride 1,000 mls @ 70 mls/hr 11/10/23 11:00 11/11/23 00:50
0.45%Nacl IV 11/11/23 15:34 1,000 mls
.[id number] MCKENNA Administration
Methimazole 10 mg 11/07/23 17:00 11/10/23 14:04
Methimazole 5 Mg Tablet PO 12/05/23 16:59 10 mg
DAILY MCKENNA Administration
Metoprolol Tartrate 5 mg 11/09/23 00:00 11/11/23 05:47
Metoprolol 5 Mg/5 Ml Vial IV 12/07/23 00:00 5 mg
Q6 MCKENNA Administration
Miconazole Nitrate 0 applic 11/09/23 08:00 11/10/23 19:58
Miconazole Powder Bottle TOPICAL 12/07/23 07:59 1 applic
BID MCKENNA Administration
Pantoprazole Sodium 40 mg 11/07/23 17:00 11/10/23 10:12
Pantoprazole Sodium 40 Mg/10 Ml Vial IV 12/05/23 16:59 40 mg
DAILY MCKENNA Administration
Sodium Chloride 0 flush 11/07/23 18:00 11/07/23 23:52
Sodium Chloride 0.9% (Flush) Syringe IV 12/05/23 17:59 1 flush
PER PROTOCOL MCKENNA Administration
Sodium Chloride 10 ml 11/07/23 17:00 11/10/23 10:11
Sodium Chloride 0.9% (Preservative Free) 10 Ml Vial IV 12/05/23 16:59 10 ml
DAILY MCKENNA Administration
[2023-11-11] MEDS: NSS (PRESERVATIVE FREE) 10 ML IV (09:12)
[2023-11-11] MEDS: PROTONIX IV 40 MG IV (09:12)
[2023-11-11] MEDS: TAPAZOLE 10 MG PO (09:12)
[2023-11-11] MEDS: DESENEX/MITRAZOL/ZEASORB 1 APPLIC TOPICAL ×2 (09:15→20:57)
--- NOTE | 2023-11-11 10:26 | W.PN.HOSP.TC ---
Addendum entered and electronically signed by Damon Isaac DO 11/11/23 13:57:
Severe protein calorie malnutrition
Original Note:
Today's Communication/Plan
-
Start tube feeds
Monitor labs
Increase methimazole
PT/OT
Assessment / Plan
Assessment / Plan
Gen-awake, alert, NAD
HEENT-NC, AT, anicteric, clear oral mm, NG tube in place
Neck-supple
CV-reg, no M, +S1/S2
Lungs-clear B/L
Abd-soft, NT, ND
Ext-pretibial edema bilaterally
Musculoskeletal-no cyanosis, clubbing
Skin-warm and dry
Neuro-grossly non-focal
Psych-calm, cooperative
Severe dysphagia -strongly suspect due to thyrotoxicosis. NG tube in place. Start tube feeds today. Watch for refeeding syndrome. Consult nutrition. Discussed with family.
On review of literature, thyrotoxicosis induced dysphagia can take on average 3 weeks to resolve.
A Fib RVR -likely triggered by hyperthyroidism. Now rate controlled. Appreciate cardiology input. Continue IV heparin, IV metoprolol [id number]. Eventual transition to oral anticoagulation on discharge.
Hyperthyroidism -thyrotoxicosis due to missed doses of methimazole at home. Apparently he ran out and failed to refill it according to family. I spoke with endocrinology (Dr. Love) today. Recommend increasing methimazole to 20 mg 3 times daily.
Consideration for radioactive iodine ablation versus surgery discussed with endocrinology. Will need decision as an outpatient.
Elevated troponin -suspect acute nonischemic myocardial injury due to acute illness. Troponin trending down.
Hyponatremia -resolved.
Normocytic anemia -likely chronic. Outpatient follow-up.
Essential HTN -blood pressure is elevated. Was on furosemide and losartan at home.
Suspected vascular dementia -brain MRI shows advanced leukoaraiosis, greater than expected for age. Chronic lacunar infarcts. Moderate to advanced atrophy. Outpatient follow-up recommended.
Full code
Family updated at the bedside.
Anticipated Discharge: > 48 hours
Subjective/Interval History
-
Date of Service: November 11, 2023
Patient seen and examined. Family at the bedside. No complaints.
Objective Data
-
Labs:
Laboratory Results
11/11/23
04:20
WBC 5.9
Hgb 10.4 L
Hct 31.8 L
Plt Count 109 L D
APTT 93.2 H
Total Bilirubin 1.3
AST 39
ALT 48
Alkaline Phosphatase 118
Vital Signs:
Vital Signs
Temp Pulse Resp BP Pulse Ox
98.6 F 109 18 140/79 98
11/11/23 08:07 11/11/23 08:07 11/11/23 08:07 11/11/23 08:07 11/11/23 08:07
I&O
11/10/23 11/11/23 11/12/23
06:59 06:59 06:59
Intake Total 870 / 870
Output Total 700 / 700 425 / 425
Balance -700 / -700 445 / 445
Review of Systems
-
Unable to obtain full review of systems at this time due to: Acuity
History Source: Patient
All other systems: Reviewed and negative
--- NOTE | 2023-11-11 10:29 | W.PN.CARDCBS ---
Addendum entered and electronically signed by Abdirahman Shah DO 11/11/23 16:00:
I saw and examined the patient.
The [employer]'s note was reviewed and I agree with the note.
Comment:
Plan:
Continue IV heparin for prophylaxis and IV lopressor for rate control.
Cont rate control strategy while hypothyroid.
Transition to oral anticoagulation once no further procedures planned. Case management working on cost.
Nutrition per GI/dietary
Continue methimazole
Reviewed echo and small troponin with family at bedside, for eventual OP ischemic evaluation, likely as outpt.
Discussed with primary service.
Original Note:
Today's Communication / Plan
-
continue IV heparin, IV lopressor
nutrition per GI/dietary
continue methimazole
for eventual OP ischemic evaluation
Impression / Plan
-
PCP: EDDIE Gleason
Cdl Bulk Driver: None prior to arrival, initially seen by Dr. Nieves
Impression:
Presented with failure to thrive
Atrial fibrillation with RVR�newly diagnosed
Confusion/weakness
Swallowing dysfunction
Medical noncompliance
Elevated troponin, suspected nonMI trop elevation
Loss of appetite
Hypertension
Lower extremity edema
Hyperthyroidism - uncontrolled
Echo 09/01/2023: EF 55 to 60%, mild AI
Echo 11/10/2023: EF 60 to 55%, anteroseptum appears mildly hypokinetic
Plan:
-Presented with failure to thrive and noncompliance with medications. Uncontrolled hyperthyroidism noted on arrival with TSH < 0.02 and free T4 > 6.99.
-Noted to be in rapid atrial fibrillation on arrival which was a new diagnosis of unknown duration. Likely related to uncontrolled hyperthyroidism.
-also with significant dysphagia and tight upper esophageal sphincter on video swallow. gi following. felt to be secondary to hyperthyroidism. currently with NGT. likely for initiation of tube feeds. may need PEG tube
-on methimazole 20mg TID, continue
-continue rate control strategy of afib in setting of hyperthyroid state. overall HRs adequate in afib on review of tele overnight. as remains NPO for now, will continue IV lopressor. eventual transition to po regimen
-continue IV heparin. follow platelets, which are downtrending. eventual transition to OAC. Both Eliquis and Xarelto expensive per CM.
-peak trop 0.6, suspected nonMI trop elevation. no CP. echo with results as above. discussed with patient/daughters at bedside 11/11/23. plan for OP ischemic eval once thyroid issues improved.
-proBNP 2550. OP lasix on hold. CXR with clear lungs. follow volume status
-MRI of brain showed significant small vessel ischemic disease and chronic infarcts. Neurology following
-d/w daughters at bedside. d/w nursing, hospitalist, GI.
HPI: Elia is a 63-year-old male with past medical history of hypertension, extremity edema, and hyperthyroidism who presented to ER after being urged by his family. He reportedly has had no appetite for the past 2 weeks and has not been
eating or drinking or taking his medications. He denies any specific complaints, however does note some occasional dizziness at times. In ER, he was found to be in rapid atrial fibrillation on arrival with heart rate 128 bpm. He has no known
history of atrial fibrillation and is unsure how long he has been in this rhythm. He notes he has had episodes of confusion and difficulty with word finding recently and also has had episodes of weakness. He was given 5 mg of IV Lopressor and was
started on heparin drip given new rapid A-fib. Lab work revealed elevated troponin at 0.037 with elevated proBNP 2550. He also was noted to have TSH <0.02. Free T4 returned >6.99. Chest x-ray was negative. He is admitted for further workup and
evaluation of hyperthyroidism and rapid A-fib. Cardiology consulted for evaluation. He has no acute complaints at this time.
Progress Note - Cdl Bulk Driver
Subjective
Date of Service: November 11, 2023
reports some abd pain and SOB
Objective
Labs:
11/11/23 04:20
11/10/23 06:24
Labs
Hgb 10.4 g/dL (13.0-18.0) L 11/11/23 04:20
Hct 31.8 % (39.0-52.0) L 11/11/23 04:20
Plt Count 109 10^3/uL (130-400) L D 11/11/23 04:20
PT 17.8 Sec (11.4-14.6) H 11/07/23 22:00
INR 1.48 11/07/23 22:00
APTT 93.2 Sec (23.4-35.0) H 11/11/23 04:20
Sodium 140 mmol/L (135-145) 11/10/23 06:24
Potassium 4.0 mmol/L (3.5-5.1) 11/10/23 06:24
BUN 46 mg/dl (9-20) H 11/10/23 06:24
Creatinine 0.7 mg/dL (0.7-1.3) 11/10/23 06:24
Glucose 110 mg/dl (70-99) H 11/10/23 06:24
Troponins
11/08/23 11/09/23 11/10/23
13:59 09:35 10:27
Troponin I 0.360 H* D 0.601 H* 0.505 H*
11/10/23
17:00
Troponin I Cancelled
Vital Signs and I&O:
Vital Signs
Temp Pulse Resp BP Pulse Ox
98.6 F 109 18 140/79 98
11/11/23 08:07 11/11/23 08:07 11/11/23 08:07 11/11/23 08:07 11/11/23 08:07
Vital Signs
Temp Pulse Resp BP Pulse Ox
98.6 F 109 18 140/79 98
11/11/23 08:07 11/11/23 08:07 11/11/23 08:07 11/11/23 08:07 11/11/23 08:07
Intake & Output
11/09/23 11/10/23 11/11/23 11/12/23
07:59 07:59 07:59 07:59
Intake Total 953 / 953 770 / 770 100 / 100
Output Total 400 / 400 650 / 650 75 / 75
Balance 553 / 553 120 / 120 25 / 25
Physical Exam
Physical Exam
GEN: No distress, awake, lethargic. cachectic. NGT in place
HEENT: supple, anicteric, mmm, eomi
LUNGS: CTA B/L, no wheezes/rales
CV: Irreg, S1/S2, no murmur
ABD: soft, BS+, NT/ND
EXT: No cyanosis, clubbing. 2+ edema of B/L LE
NEURO: Gross non-focal
SKIN: Warm, pink, dry. No rash
[2023-11-11] MEDS: SOLU-MEDROL 258 MG IV (12:18)
--- NOTE | 2023-11-11 12:53 | W.PN.GI.CBS2 ---
Addendum entered and electronically signed by Timmy Demarco MD 11/11/23 15:25:
I saw and examined the patient.
The IT APPLICATIONS MANAGER or PA's note was reviewed and I agree with the note.
Comment: 63 yo M a/w FTT found to have severe pharyngeal dysphagia thought likely to be from throtoxicosis.
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
Appreciate Dr. Membreno input may take 3 weeks to see resolution. He is in contact with endocrine.
Plan to start TF today slowly monitor for refeeding syndrome.
Suspect may need PEG prior to DC d/w family.
Nutrition and speech path input appreciated.
Original Note:
Today's Communication / Plan
-
Etiology of multiple symptoms including wt loss, FTT, diarrhea, afib, weakness related to underlying thyroid dysfunction vs other
cont to treat correct thyroid dysfunction per medical team as reviewed with endocrine assist
currently on Methimazole 20gm BID
steroids added also today per neurology and cont to follow for work up for other etiology for neuro symptoms
VSE as noted
cont NGT to help for stretching UES in case of web.
plan to start tube feeds today with dietary assist-- await recs to start
will be at risk for refeeding syndrome cont close follow electrolyte imbalance
discussed with patient and both daughters continue to monitoring swallowing. If not improving when at tube feed goal, steroid trial, and start of thyroid correction may need peg as may take several weeks to improve and cannot leave hospital with
NGT as risk of clogging and accidental removal. Discussed with PEG EGD would be completed to assess esophagus. Tube would need to be in place a least 3 months.
monitor for recurrent diarrhea with start of tube feeds
Assessment / Plan
-
Pt is a 63yo with hx HTN, hyperthyroidism on methimazole but not taking correctily prior to admission, LE enema noted with failure to thrive. On admission noted with Afib with RVR and marked thyroid abnormality with failure to thrive and asked to
evaluate. Pt also noted with mild hyponatremia, elevated troponin, elevated bilirubin 2.2, alk phos 150.
-failure to thrive
-failed VSE with mild oral and severe pharyngeal dysphagia and severe retention in the pharynx due to poor pharyngoesophageal segment opening with placement of NGT 11/09
-severe calorie malnutrition
-nausea/vomiting
-dysphagia
-diarrhea
-mild bili and alk phos elevation improving
-tachycardia
-afib with RVR
-hx hyperthyroidism off medication prior to admission with marked thyroid dysfunction on admission with TSH <0.02, T4 6.99, T3 >22.8
-wt loss
-mild anemia
-urinary retention
-mild bili and alk phos elevation
-hyponatremia
-increased troponin
-hypoalbuminemia
other medical problems:
HTN
Peripheral edema
PLAN:
Etiology of multiple symptoms including wt loss, FTT, diarrhea, afib, weakness related to underlying thyroid dysfunction vs other
cont to treat correct thyroid dysfunction per medical team as reviewed with endocrine assist
currently on Methimazole 20gm BID
steroids added also today per neurology and cont to follow for work up for other etiology for neuro symptoms
VSE as noted
cont NGT to help for stretching UES in case of web.
plan to start tube feeds today with dietary assist-- await recs to start
will be at risk for refeeding syndrome cont close follow electrolyte imbalance
discussed with patient and both daughters continue to monitoring swallowing. If not improving when at tube feed goal, steroid trial, and start of thyroid correction may need peg as may take several weeks to improve and cannot leave hospital with
NGT as risk of clogging and accidental removal. Discussed with PEG EGD would be completed to assess esophagus. Tube would need to be in place a least 3 months.
monitor for recurrent diarrhea with start of tube feeds
Subjective
Subjective
Date of Service: November 11, 2023
diarrhea less, NPO with NGT in place
Objective
Data Reviewed
Laboratory Data:
Laboratory Results
11/11/23 04:20
11/10/23 06:24
Laboratory Results
PT 17.8 Sec (11.4-14.6) H 11/07/23 22:00
INR 1.48 11/07/23 22:00
APTT 93.2 Sec (23.4-35.0) H 11/11/23 04:20
Phosphorus 5.4 mg/dl (2.5-4.5) H 11/08/23 07:40
Magnesium 2.2 mg/dl (1.6-2.3) 11/08/23 07:40
Total Bilirubin 1.3 mg/dl (0.2-1.3) 11/11/23 04:20
AST 39 U/L (17-59) 11/11/23 04:20
ALT 48 U/L (0-50) 11/11/23 04:20
Alkaline Phosphatase 118 U/L (38-126) 11/11/23 04:20
Vital Signs and I&O:
Vital Signs
Temp Pulse Resp BP Pulse Ox
97.6 F 118 18 152/81 98
11/11/23 11:48 11/11/23 11:48 11/11/23 11:48 11/11/23 11:48 11/11/23 11:48
I&O
11/10/23 11/11/23 11/12/23
06:59 06:59 06:59
Intake Total 870 / 870
Output Total 700 / 700 425 / 425
Balance -700 / -700 445 / 445
Physical Exam
Physical Exam
HEENT: Anicteric, Moist mucous membranes and Other (temoral wasting)
Cardiology: Other (tachy)
Pulmonary: Clear
GI: Soft, Non Distended, Non Tender and Other (thin abdomen)
Extremities: Edema
Neuro: Other (awake and alert thick speech)
--- NOTE | 2023-11-11 15:25 | W.PN.UPDATE ---
Update Note
Progress Note Update
billing purposes onyl
[2023-11-11] MEDS: TAPAZOLE 20 MG TUBE ×2 (15:35→22:20)
--- NOTE | 2023-11-11 15:53 | PTOTSP ---
Dysphagia Therapy
Initiate Aspiration Risk Hydration Protocol to allow sparing amounts of ice chips after oral care with supervision for patient comfort (and if eventually able to swallow greater amounts, to prevent further disuse atrophy of swallowing muscles.)
Please offer a max of 5 ice chips an hour. If patient tolerates this without respiratory difficulty, can increase amount at discretion of treating DRY WALL SPRAYER. Discontinue if any worsening of respiratory status observed.
Repeat swallow study is not appropriate at this time but should be considered after time for medical interventions to treat suspected thyrotoxicosis.
Recommend:
1. NPO - consider non-oral means of nutrition/hydration
2. Medications - via non-oral means
3. Aspiration Risk Hydration Protocol (ARHP) - sparing ice chips (5 ice chips/hour)
4. Oral care 3x daily
5. Dysphagia tx at the acute care level for patient/family education and to determine when repeat video is warranted.
[2023-11-12] VITALS (7 sets, daily range): BP systolic 140–165; BP diastolic 68–91
[2023-11-12] MEDS: LOPRESSOR 5 MG IV ×2 (00:32→05:24)
[2023-11-12] MEDS: HEPARIN 25000 UNITS/250 ML IV ×2 (04:55→18:09)
[2023-11-12] MEDS: DESENEX/MITRAZOL/ZEASORB 1 APPLIC TOPICAL ×2 (08:00→20:52)
[2023-11-12 08:13] LABS: Hematocrit 33.5 % (39.0-52.0); Hemoglobin 11.2 g/dL (13.0-18.0); Mean Corp Hgb Conc. 33.4 g/dL (33.0-37.0); Mean Corpuscular Volume 80.7 fL (80.0-94.0); Mean Platelet Volume 12.4 fL (7.4-10.4); Platelet Count 107 10^3/uL (130-400); Red Blood Cell Count 4.15 10^6/uL (4.70-6.10); Red Cell Dist. Width 14.4 % (11.5-14.5); White Blood Cell Count 6.5 10^3/uL (4.8-10.8)
[2023-11-12 08:23] LABS: APTT 82.6 Sec (23.4-35.0)
[2023-11-12 09:10] LABS: ALT (SGPT) 45 U/L (0-50); AST (SGOT) 26 U/L (17-59); Albumin 2.9 g/dl (3.5-5.0); Alkaline Phosphatase 118 U/L (38-126); Blood Urea Nitrogen 42 mg/dl (9-20); Calcium 9.4 mg/dl (8.4-10.2); Carbon Dioxide 20 mmol/L (22-30); Chloride 107 mmol/L (98-107); Estimated Creatinine Clearance 93 ml/min; Glucose 211 mg/dl (70-99); Magnesium 1.8 mg/dl (1.6-2.3); Phosphorus 4.8 mg/dl (2.5-4.5); Potassium 4.1 mmol/L (3.5-5.1); Sodium 138 mmol/L (135-145); Total Bilirubin 1.1 mg/dl (0.2-1.3); Total Protein 5.6 g/dl (6.3-8.2); eGFR > 60.00
[2023-11-12] MEDS: TAPAZOLE 20 MG TUBE ×3 (09:42→20:51)
--- NOTE | 2023-11-12 09:57 | W.PN.NEURO.1 ---
Today's Communication / Plan
-
Started high-dose steroids methylprednisolone 1 g IV x 3 in hopes of remediating any autoantibodies, dose 1 provided
Await blood work for potential autoantibodies
Await myasthenia antibodies with MUSk, acetylcholine blocking, binding, modulating antibodies
Agree with anticoagulation
Neuro Assessment/Plan
Assessment
Neuro Imaging: Brain MRI chronic lacunar infarcts, severe ischemic small vessel disease
Impressions
Oropharyngeal dysphagia along with extraocular movement abnormalities, muscle atrophy, signs of hyperreflexia. Severe weight loss over past couple of months.
Hyperthyroidism may lead to a lot of these changes but would need to evaluate for other possible causes. In the differential diagnosis would include myasthenia gravis, thyroid peroxidase autoantibodies
Hyperreflexia not consistent with neuropathy
Significant small vessel ischemic disease and chronic infarcts on brain MRI with concern for potential vascular cognitive impairment
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
Plan
Recommendations:
Started high-dose steroids methylprednisolone 1 g IV x 3 in hopes of remediating any autoantibodies, dose 1 provided
Await blood work for potential autoantibodies
Await myasthenia antibodies with MUSk, acetylcholine blocking, binding, modulating antibodies
Agree with anticoagulation
We will follow, peripherally
Subjective/Objective
Subjective Data
Date of Service: November 12, 2023
Patient reports no medical issues currently.
Objective Data
Vital Signs
Temp Pulse Resp BP Pulse Ox
36.4 C 94 18 162/75 99
11/12/23 07:06 11/12/23 07:06 11/12/23 07:06 11/12/23 07:06 11/12/23 04:30
Lab Results
11/12/23 07:29
11/12/23 07:29
PT 17.8 Sec (11.4-14.6) H 11/07/23 22:00
INR 1.48 11/07/23 22:00
APTT 82.6 Sec (23.4-35.0) H 11/12/23 07:29
Sodium 138 mmol/L (135-145) 11/12/23 07:29
Potassium 4.1 mmol/L (3.5-5.1) 11/12/23 07:29
BUN 42 mg/dl (9-20) H 11/12/23 07:29
Glucose 211 mg/dl (70-99) H 11/12/23 07:
Calcium 9.4 mg/dl (8.4-10.2) 11/12/23 07:
Phosphorus 4.8 mg/dl (2.5-4.5) H 11/12/23 07:29
Vxd-A-Cbgnbposlfs Pept 2550 pg/ml 11/07/23 14:21
Vitamin B12 420 pg/ml (239-931) 11/08/23 07:40
Patient Allergies
No Known Allergies Allergy (Unverified 11/07/23 13:27)
Review of Systems
-
Unable to obtain full review of systems at this time due to: Dementia
History Source: Patient
All other systems: Reviewed and negative
Neuro: Negative Dizzy or Headache
Physical Exam
-
General: No Apparent Distress and Older than Stated Age
Eyes: Round OU, [place] Conjunctivae, No Ptosis and Other (Mild proptosis on the right greater than left)
HEENT: Anicteric and Moist Mucous Membranes
Neck: Full Range of Motion
Respiratory: No Dyspnea
Cardiac: No JVD
GI: Non-distended
Extremities: No Clubbing, No Cyanosis and Edema +1 (Distally in bilateral lower extremities)
Psych: Negative Intact Judgement/Insight
Extended Neurological Exam
Mood & Affect: Mood Unremarkable and Affect Unremarkable
Attention Span & Concentration: Awake, Alert, Interactive, Unable to Perform 2 Step Request and Other (Easily distracted, tangential)
Memory: Reduced (For current year and month) and Unable to Recall Personal History
Tremor: Hand Tremor Absent and Head Tremor Absent
Involuntary Movement: None
Speech: Quality Unremarkable and Dysarthric
Cranial Nerve II: Left Eye: Pupillary Size Unremarkable and Visual Cox Grossly Intact
Cranial Nerve II: Right Eye: Pupillary Size Unremarkable and Visual Cox Grossly Intact
Cranial Nerves III, IV, : Extraocular Movement: Reduced (Movement in right eye in all directions, greater mobility with left eye movement)
Cranial Nerve VII: Facial Symmetry: Normal Facial Symmetry
Cranial Nerve VIII: Hearing: Unremarkable Hearing to Normal Conversational Volume
Cranial Nerve XI: Shoulder Shrug: Reduced on Right; Negative Reduced on Left
Muscle Strength, Overall: Reduced (Proximally bilaterally slightly worse on the right than left upper extremities; intact distal strength)
Muscle Bulk & Tone: Tone Unremarkable and Decreased Bulk
Touch Sensation: Unremarkable
Coordination: Reaches for Objects without Difficulty
Gait & Station: Unable to Assess
Data Reviewed
-
Labs: Report Reviewed
Old Records: Summarized
Past History
Past History
ED Past Medical History: Arrthythmia (Atrial fibrillation), HTN and Hyperthyroidism
Medications
-
Medications:
Generic Name Dose Route Start Last Admin
Trade Name Freq PRN Reason Stop Dose Admin
Heparin Sodium 25,000 units in 250 mls @ 0 mls/hr 11/07/23 15:45 11/12/23 04:55
Heparin 79670 Units/250 Ml IV 250 mls
PER PROTOCOL MCKENNA Administration
Protocol
Per Protocol
Methylprednisolone Sodium 258 mls @ 258 mls/hr 11/11/23 12:00 11/11/23 12:18
Succinate 1,000 mg/ Sodium IV 11/13/23 12:59 258 mls
Chloride Q24H MCKENNA Administration
Methimazole 20 mg 11/11/23 16:00 11/11/23 22:20
Methimazole 5 Mg Tablet TUBE 12/09/23 15:59 20 mg
TID MCKENNA Administration
Metoprolol Tartrate 5 mg 11/09/23 00:00 11/12/23 05:24
Metoprolol 5 Mg/5 Ml Vial IV 12/07/23 00:00 5 mg
Q6 MCKENNA Administration
Miconazole Nitrate 0 applic 11/09/23 08:00 11/11/23 20:57
Miconazole Powder Bottle TOPICAL 12/07/23 07:59 1 applic
BID MCKENNA Administration
Pantoprazole Sodium 40 mg 11/07/23 17:00 11/11/23 09:12
Pantoprazole Sodium 40 Mg/10 Ml Vial IV 12/05/23 16:59 40 mg
DAILY MCKENNA Administration
Sodium Chloride 0 flush 11/07/23 18:00 11/07/23 23:52
Sodium Chloride 0.9% (Flush) Syringe IV 12/05/23 17:59 1 flush
PER PROTOCOL MCKENNA Administration
Sodium Chloride 10 ml 11/07/23 17:00 11/11/23 09:12
Sodium Chloride 0.9% (Preservative Free) 10 Ml Vial IV 12/05/23 16:59 10 ml
DAILY MCKENNA Administration
[2023-11-12] MEDS: PROTONIX IV 40 MG IV (10:08)
[2023-11-12] MEDS: NSS (PRESERVATIVE FREE) 10 ML IV (10:08)
--- NOTE | 2023-11-12 10:34 | W.PN.GI.CBS2 ---
Addendum entered and electronically signed by Timmy Demarco MD 11/12/23 18:33:
I saw and examined the patient.
The ATG JAVA DEVELOPER or PA's note was reviewed and I agree with the note.
Comment: 63 yo M a/w FTT found to have severe pharyngeal dysphagia thought likely to be from throtoxicosis.
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
Appreciate Dr. Membreno input may take 3 weeks to see resolution. He has discussed with endocrine. Family asking about surgery on thyroid per Dr. Isaac endocrine said not at current time with A fib, another option is ALBERTS.
Continue TF monitor for refeeding syndrome.
Suspect may need PEG prior to DC d/w family r/a/b reviewed including but not limited to bleeding, infection, perforation.
Plan repeat VSE Friday (remove NGT at that time) see if any improvement if not plan PEG Friday.
D/w hospitalist and speech path.
Original Note:
Today's Communication / Plan
-
Etiology of multiple symptoms including wt loss, FTT, diarrhea, afib, weakness related to underlying thyroid dysfunction vs other
cont to treat correct thyroid dysfunction per medical team as reviewed with endocrine assist
patient and family both report some improved mentation and alertness
currently on Methimazole 20gm BID
steroids per neurology with continued neuro work up pending
cont NGT to help for stretching UES in case of web.
cont tube feeds with watch of electroltyes-- today phos 4.8, mag 1,8 and K 4.1 as refeeding risk
discussed at length with patient and family may need peg to ensure nutrition if diet and swallowing not improved-- NGT not for outpatient care with risk of removal/clogging
with some improvement overnight may need repeat VSE in a few days prior to peg to ensure oral diet not feasible
pt remains on heparin gtt with Afib RVR if peg needed will need to hold
Assessment / Plan
-
Pt is a 63yo with hx HTN, hyperthyroidism on methimazole but not taking correctily prior to admission, LE enema noted with failure to thrive. On admission noted with Afib with RVR and marked thyroid abnormality with failure to thrive and asked to
evaluate. Pt also noted with mild hyponatremia, elevated troponin, elevated bilirubin 2.2, alk phos 150.
-failure to thrive
-failed VSE with mild oral and severe pharyngeal dysphagia and severe retention in the pharynx due to poor pharyngoesophageal segment opening with placement of NGT 11/09
-severe calorie malnutrition
-nausea/vomiting
-dysphagia
-diarrhea
-mild bili and alk phos elevation improving
-tachycardia
-afib with RVR
-hx hyperthyroidism off medication prior to admission with marked thyroid dysfunction on admission with TSH <0.02, T4 6.99, T3 >22.8
-wt loss
-mild anemia
-urinary retention
-mild bili and alk phos elevation
-hyponatremia
-increased troponin
-hypoalbuminemia
other medical problems:
HTN
Peripheral edema
PLAN:
Etiology of multiple symptoms including wt loss, FTT, diarrhea, afib, weakness related to underlying thyroid dysfunction vs other
cont to treat correct thyroid dysfunction per medical team as reviewed with endocrine assist
patient and family both report some improved mentation and alertness
currently on Methimazole 20gm BID
steroids per neurology with continued neuro work up pending
cont NGT to help for stretching UES in case of web.
cont tube feeds with watch of electroltyes-- today phos 4.8, mag 1,8 and K 4.1 as refeeding risk
discussed at length with patient and family may need peg to ensure nutrition if diet and swallowing not improved-- NGT not for outpatient care with risk of removal/clogging
with some improvement overnight may need repeat VSE in a few days prior to peg to ensure oral diet not feasible
pt remains on heparin gtt with Afib RVR if peg needed will need to hold
Subjective
Subjective
Date of Service: November 12, 2023
loose stools last PM but no gross diarrhea today on Tube feeds at 30ml/hr-- family and patient report more alertness and interactive this am
Objective
Data Reviewed
Laboratory Data:
Laboratory Results
11/12/23 07:29
11/12/23 07:29
Laboratory Results
PT 17.8 Sec (11.4-14.6) H 11/07/23 22:00
INR 1.48 11/07/23 22:00
APTT 82.6 Sec (23.4-35.0) H 11/12/23 07:29
Phosphorus 4.8 mg/dl (2.5-4.5) H 11/12/23 07:29
Magnesium 1.8 mg/dl (1.6-2.3) 11/12/23 07:29
Total Bilirubin 1.1 mg/dl (0.2-1.3) 11/12/23 07:29
AST 26 U/L (17-59) 11/12/23 07:29
ALT 45 U/L (0-50) 11/12/23 07:29
Alkaline Phosphatase 118 U/L (38-126) 11/12/23 07:29
Vital Signs and I&O:
Vital Signs
Temp Pulse Resp BP Pulse Ox
97.6 F 94 18 162/75 99
11/12/23 07:06 11/12/23 07:06 11/12/23 07:06 11/12/23 07:06 11/12/23 04:30
I&O
11/11/23 11/12/23 11/13/23
06:59 06:59 06:59
Intake Total 1843 / 1843 1221 / 1221
Output Total 425 / 425 1200 / 1200
Balance 1418 / 1418 21 / 21
Physical Exam
Physical Exam
HEENT: Anicteric and Moist mucous membranes
Cardiology: Normal Sinus Rhythm
Pulmonary: Clear
GI: Soft, Non Distended, Non Tender and Other (NGT with tube feeds running )
Extremities: Edema
Neuro: Other (more awake and interactive-- still slight dysarthic speech )
[2023-11-12 11:05] LABS: Intact PTH 31.8 pg/ml (13.6-85.8)
--- NOTE | 2023-11-12 11:42 | CM ---
manager of radiology met with patient and daughters today and plan is to home with daughter at discharge.
Plan; Home when stable.
--- NOTE | 2023-11-12 12:02 | W.PN.HOSP.TC ---
Today's Communication/Plan
-
Continue tube feeds
Change metoprolol to 25 mg every 8 hours via NG tube
Continue IV heparin
Assessment / Plan
Assessment / Plan
Gen-awake, alert, NAD
HEENT-NC, AT, anicteric, clear oral mm, NG tube in place
Neck-supple
CV-reg, no M, +S1/S2
Lungs-clear B/L
Abd-soft, NT, ND
Ext-pretibial edema bilaterally
Musculoskeletal-no cyanosis, clubbing
Skin-warm and dry
Neuro-grossly non-focal
Psych-calm, cooperative
Severe dysphagia -strongly suspect due to thyrotoxicosis. Continue tube feeds via NG tube. Watch for refeeding syndrome.
On review of literature, thyrotoxicosis induced dysphagia can take on average 3 weeks to resolve.
A Fib RVR -likely triggered by hyperthyroidism. New diagnosis of atrial fibrillation. Rates are still fast. Will change metoprolol to NG tube 25 mg every 8 hours. Appreciate cardiology input. Continue IV heparin until decision has been made
regarding possible PEG tube.
Hyperthyroidism -thyrotoxicosis due to missed doses of methimazole at home. Apparently he ran out and failed to refill it according to family. I spoke with endocrinology (Dr. Love) on 11/10. Continue methimazole 20 mg 3 times daily.
Consideration for radioactive iodine ablation versus surgery discussed with endocrinology. Will need decision as an outpatient.
Severe protein calorie malnutrition -currently getting tube feeds via NG tube as above. Watch for refeeding syndrome.
Elevated troponin -suspect acute nonischemic myocardial injury due to acute illness. Troponin trending down.
Hyponatremia -resolved.
Normocytic anemia -likely chronic. Outpatient follow-up.
Essential HTN -blood pressure is elevated. Was on furosemide and losartan at home. Will give metoprolol chance to work.
Suspected vascular dementia -brain MRI shows advanced leukoaraiosis, greater than expected for age. Chronic lacunar infarcts. Moderate to advanced atrophy. Outpatient follow-up recommended.
Full code
Dispo -eventual SNF when medically stable.
Family updated at the bedside.
Anticipated Discharge: > 48 hours
Subjective/Interval History
-
Date of Service: November 12, 2023
Patient seen and examined. Looks and feels better. No complaints.
Objective Data
-
Labs:
Laboratory Results
11/12/23
07:29
WBC 6.5
Hgb 11.2 L
Hct 33.5 L
Plt Count 107 L
APTT 82.6 H
Sodium 138
Potassium 4.1
Chloride 107
Carbon Dioxide 20 L
BUN 42 H
Creatinine 0.8
Glucose 211 H
Calcium 9.4
Total Bilirubin 1.1
AST 26
ALT 45
Alkaline Phosphatase 118
Vital Signs:
Vital Signs
Temp Pulse Resp BP Pulse Ox
97.7 F 125 19 165/83 98
11/12/23 11:26 11/12/23 11:26 11/12/23 11:26 11/12/23 11:26 11/12/23 11:26
I&O
11/11/23 11/12/23 11/13/23
06:59 06:59 06:59
Intake Total 1843 / 1843 1221 / 1221
Output Total 425 / 425 1200 / 1200
Balance 1418 / 1418
Review of Systems
-
History Source: Patient
All other systems: Reviewed and negative
--- NOTE | 2023-11-12 13:23 | W.PN.CARDCBS ---
Addendum entered and electronically signed by Panfilo Polo MD 11/12/23 17:52:
I saw and examined the patient.
The Soldering Machine Operator's note was reviewed and I agree with the note.
Comment: Briefly, 63-year-old man presenting with failure to thrive found to have thyrotoxicosis and A-fib with RVR
Heart rates remain elevated in atrial fibrillation
Will attempt to transition IV to p.o. metoprolol as he is tolerating tube feeds
Cont heparin gtt for now, eventual transition to Eliquis if no further procedures are planned
Original Note:
Today's Communication / Plan
-
continue IV heparin. eventual transition to OAC
po lopressor 25mg Q6H crushed through tube
IV lopressor PRN
continue methimazole
Impression / Plan
-
PCP: EDDIE Gleason
Electrical Sign Wirer: None prior to arrival, initially seen by Dr. Nieves
Impression:
Presented with failure to thrive
Atrial fibrillation with RVR�newly diagnosed
Confusion/weakness
Swallowing dysfunction
Medical noncompliance
Elevated troponin, suspected nonMI trop elevation
Loss of appetite
Hypertension
Lower extremity edema
Hyperthyroidism - uncontrolled
NSVT
Echo 09/01/2023: EF 55 to 60%, mild AI
Echo 11/10/2023: EF 60 to 55%, anteroseptum appears mildly hypokinetic
Plan:
-Presented with failure to thrive and noncompliance with medications. Uncontrolled hyperthyroidism noted on arrival with TSH < 0.02 and free T4 > 6.99.
-Noted to be in rapid atrial fibrillation on arrival which was a new diagnosis of unknown duration. Likely related to uncontrolled hyperthyroidism.
-also with significant dysphagia and tight upper esophageal sphincter on video swallow. gi following. felt to be secondary to hyperthyroidism. tolerating tube feeds. may need PEG tube
-on methimazole 20mg TID, continue
-continue rate control strategy of afib in setting of hyperthyroid state. overall HRs adequate in afib on review of tele overnight. transitioned to po lopressor through tube. dose increased to 25mg Q6H due to elevated HRs on review of tele as well
as 17 beat run of NSVT. continued IV lopressor PRN sustained HRs >120
-K 4.1. mag 1.8, will replete. repeat in AM
-continue IV heparin. follow platelets, which are downtrending. eventual transition to OAC. Both Eliquis and Xarelto expensive per CM.
-peak trop 0.6, suspected nonMI trop elevation. no CP. echo with results as above. discussed with patient/daughters at bedside 11/11/23. plan for OP ischemic eval once thyroid issues improved.
-proBNP 2550. OP lasix on hold. CXR with clear lungs. follow volume status
-MRI of brain showed significant small vessel ischemic disease and chronic infarcts. Neurology following
HPI: Elia is a 63-year-old male with past medical history of hypertension, extremity edema, and hyperthyroidism who presented to ER after being urged by his family. He reportedly has had no appetite for the past 2 weeks and has not been
eating or drinking or taking his medications. He denies any specific complaints, however does note some occasional dizziness at times. In ER, he was found to be in rapid atrial fibrillation on arrival with heart rate 128 bpm. He has no known
history of atrial fibrillation and is unsure how long he has been in this rhythm. He notes he has had episodes of confusion and difficulty with word finding recently and also has had episodes of weakness. He was given 5 mg of IV Lopressor and was
started on heparin drip given new rapid A-fib. Lab work revealed elevated troponin at 0.037 with elevated proBNP 2550. He also was noted to have TSH <0.02. Free T4 returned >6.99. Chest x-ray was negative. He is admitted for further workup and
evaluation of hyperthyroidism and rapid A-fib. Cardiology consulted for evaluation. He has no acute complaints at this time.
Progress Note - Electrical Sign Wirer
Subjective
Date of Service: November 12, 2023
tolerating tube feeds
Objective
Labs:
11/12/23 07:29
11/12/23 07:29
Labs
Hgb 11.2 g/dL (13.0-18.0) L 11/12/23 07:29
Hct 33.5 % (39.0-52.0) L 11/12/23 07:29
Plt Count 107 10^3/uL (130-400) L 11/12/23 07:29
PT 17.8 Sec (11.4-14.6) H 11/07/23 22:00
INR 1.48 11/07/23 22:00
APTT 82.6 Sec (23.4-35.0) H 11/12/23 07:29
Sodium 138 mmol/L (135-145) 11/12/23 07:29
Potassium 4.1 mmol/L (3.5-5.1) 11/12/23 07:29
BUN 42 mg/dl (9-20) H 11/12/23 07:29
Creatinine 0.8 mg/dL (0.7-1.3) 11/12/23 07:29
Glucose 211 mg/dl (70-99) H 11/12/23 07:29
Troponins
11/10/23 11/10/23
10:27 17:00
Troponin I 0.505 H* Cancelled
Vital Signs and I&O:
Vital Signs
Temp Pulse Resp BP Pulse Ox
97.7 F 125 19 165/83 98
11/12/23 11:26 11/12/23 11:26 11/12/23 11:26 11/12/23 11:11/12/23 11:26
Vital Signs
Temp Pulse Resp BP Pulse Ox
97.7 F 125 19 165/83 98
11/12/23 11:26 11/12/23 11:26 11/12/23 11:26 11/12/23 11:26 11/12/23 11:26
Intake & Output
11/10/23 11/11/23 11/12/23 11/13/23
07:59 07:59 07:59 07:59
Intake Total 770 / 770 1073 / 1073 1221 / 1221
Output Total 650 / 650 75 / 75 1200 / 1200
Balance 120 / 120 998 / 998
[2023-11-12] MEDS: SOLU-MEDROL 258 MG IV (14:00)
[2023-11-12] MEDS: LOPRESSOR 25 MG TUBE ×2 (14:00→20:51)
--- NOTE | 2023-11-12 18:00 | PTCARENOTE ---
pt was received in bed with bilateral eyes closed and head of bed elevated to greater than 30 degrees. pt continues to receive heparin via his rt arm iv at a dose of 1900 unit/hr and rate of 19 ml/hr. pt is also receiving jevity 1.5 at a new rate of
40mL's per hr and tolerating it well. no complains of nausea and no episodes of diarrhea or vomiting. pt is provided ice chips hourly by family members and tolerating them well. he was able to sit in a stationary chair for 3 hours with family
members at bedside
--- NOTE | 2023-11-12 18:33 | W.PN.UPDATE ---
Update Note
Progress Note Update
billing purposes
--- NOTE | 2023-11-12 21:37 | PTCARENOTE ---
Patient observed attempting to remove NG tube and IV line multiple times. Multiple attempts were made to redirect patient, but were unsuccessful as patient became aggressive, attempting to hit staff members, continuing to remove lines, and
attempting to throw equipment at staff members. MOTOR EQUIPMENT CAPTAIN notified and order placed for limb restraints for patient safety as patient is currently receiving tube feeds through his NG tube and heparin through his peripheral IV line. Wrist restraints placed
on patient per protocol. Will continue to monitor.
[2023-11-13] VITALS (8 sets, daily range): BP systolic 137–183; BP diastolic 64–90
[2023-11-13] MEDS: LOPRESSOR 25 MG TUBE ×2 (03:00→09:00)
[2023-11-13 03:33] LABS: Albumin 2.95 g/dL (3.75-5.01); Alpha 1 Globulin 0.43 g/dL (0.19-0.46); Alpha 2 Globulin 0.93 g/dL (0.48-1.05); SPEP IFE Reflex Not Done; Total Protein-Electrophoresis 6.3 g/dL (6.3-8.2)
[2023-11-13 07:13] LABS: Hemoglobin 10.6 g/dL (13.0-18.0); Mean Corp Hgb Conc. 34.2 g/dL (33.0-37.0); Mean Corpuscular Hgb 27.2 pg (27.0-31.0); Mean Corpuscular Volume 79.7 fL (80.0-94.0); Mean Platelet Volume 12.3 fL (7.4-10.4); Platelet Count 109 10^3/uL (130-400); Red Blood Cell Count 3.89 10^6/uL (4.70-6.10); Red Cell Dist. Width 14.6 % (11.5-14.5); White Blood Cell Count 5.6 10^3/uL (4.8-10.8)
--- NOTE | 2023-11-13 07:23 | W.PN.NEURO.1 ---
Today's Communication / Plan
-
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
-Finish 3/3 days of IV steroids today
-Treating hyperthyroidism
-IV heparin in place until decisions on PEG tube
-Expect dysphagia is related to peripheral neuropathy and myopathy from thyroid disease, probably several days to weeks to resolve, continue speech therapy, NG tube and monitoring for refeeding syndrome
-Mobilization, PT/OT as able
-Would not start any medications for suspected vascular cognitive impairment but will consider in neurology outpatient follow up 4-6 weeks after DC
---For cerebral small vessel ischemic disease, check lipid panel would start statin of LDL more than 70, treat chronic hypertension
Will follow as needed call with questions and concerns
Neuro Assessment/Plan
Assessment
Neuro Imaging: Brain MRI chronic lacunar infarcts, severe ischemic small vessel disease
Impressions
Oropharyngeal dysphagia along with extraocular movement abnormalities, muscle atrophy, signs of hyperreflexia, periphreal neuropathy. Severe weight loss over past couple of months.
Hyperthyroidism/throtoxicosis most likely explains most of these symptoms: Can cause dysphagia and myopathy, extra ocular movement abnormalities, peripheral neuropathy, Very likely explains the weight loss. Hyperreflexia is most likely due to the
hyperthyroidism, atypical in the context of peripheral neuropathy but certainly hyperthyroidism can lead to hyperreflexia.
EMG did not show myasthenia gravis so very unlikely patient has myasthenia gravis. EMG also did not show findings supportive of motor neuron disease/ALS. Given findings of hyperthyroidism this is less likely a muscular dystrophy (oculopharyngeal
muscular dystrophy would be in Ddx but unlikely given the context)
Brain MRI shows severe ischemic microvascular disease and chronic infarcts, I do have concern for a vascular based mild cognitive impairment.
Probably an element of delirium present
Subjective/Objective
Subjective Data
Date of Service: November 13, 2023
No acute events, urinating and having bowel movements, denies eye pain, no headache or chest pain or palpitations.
Objective Data
Vital Signs
Temp Pulse Resp BP Pulse Ox
98.5 F 99 18 144/85 95
11/13/23 03:19 11/13/23 03:19 11/13/23 03:19 11/13/23 03:19 11/13/23 03:19
Lab Results
11/13/23 06:56
PT 17.8 Sec (11.4-14.6) H 11/07/23 22:00
INR 1.48 11/07/23 22:00
APTT 82.6 Sec (23.4-35.0) H 11/12/23 07:29
Sodium 138 mmol/L (135-145) 11/12/23 07:29
Potassium 4.1 mmol/L (3.5-5.1) 11/12/23 07:29
BUN 42 mg/dl (9-20) H 11/12/23 07:29
Glucose 211 mg/dl (70-99) H 11/12/23 07:29
Calcium 9.4 mg/dl (8.4-10.2) 11/12/23 07:29
Phosphorus 4.8 mg/dl (2.5-4.5) H 11/12/23 07:29
Lpj-S-Nyowhlfdqyb Pept 2550 pg/ml 11/07/23 14:21
Vitamin B12 420 pg/ml (239-931) 11/08/23 07:40
Patient Allergies
No Known Allergies Allergy (Unverified 11/07/23 13:27)
Review of Systems
-
History Source: Patient
All other systems: Reviewed and negative
Constitutional: No Symptoms
EENT: No Symptoms Reported
Respiratory: No Symptoms
Cardiac: No Symptoms
Abdomen/GI: No Symptoms
Genitourinary: No Symptoms
Musculoskeletal: No Symptoms
Skin: No Symptoms
Neuro: See existing Neuro Note
Endocrine: No Symptoms
Hematologic / Lymphatic: No Symptoms
Allergy / Immunology: No Symptoms
Physical Exam
-
General: Appears Chronically Ill and Other (Thin appearing)
Eyes: No Ptosis
HEENT: Other (No erythema or edema in the eyes, minimal proptosis bilaterally)
Neck: No Bruits Bilaterally
Respiratory: Clear to Auscultation
GI: Normal Bowel Sounds
Skin: Warm and Dry; Negative Rash
Extremities: Edema +1
Psych: Confused; Negative Agitated
Extended Neurological Exam
Attention Span & Concentration: Awake, Alert, Interactive and Other (Conversational, oriented to family, person, month, hospital, difficulty with complex commands, anxious)
Memory: Able to Recall
Tremor: Hand Tremor Absent
Involuntary Movement: None
Speech: Dysarthric; Negative Expressive Aphasia or Receptive Aphasia
Cranial Nerve II: Left Eye: Pupillary Reactivity Unremarkable and Pupillary Size Unremarkable
Cranial Nerve II: Right Eye: Pupillary Reactivity Unremarkable and Pupillary Size Unremarkable
Cranial Nerves III, IV, : Extraocular Movement: Other (Improved EOM range compared to previous exam 11/08, greater lateral movements in both eyes, impaired upgaze bilaterally, right eye exotropia and hypertropia)
Cranial Nerve VII: Facial Symmetry: Normal Facial Symmetry
Muscle Strength, Overall: Other (4/5 shoulder abduction, 5/5 arm flexion, finger flexion 5/5, hip flexion 4+/5 bilaterally, ankle dorsiflexion 5/5/ bilaterally)
Muscle Bulk & Tone: Decreased Bulk
Pronator Drift: No Drift in Upper Extremities
Deep Tendon Reflexes: Other (2+ biceps tricep brachioradialis, negative Castro's bilaterally, 3+ bilateral patella, 2+ symmetric achilles)
Vibration Sensation: Reduced Mildly Distally
Touch Sensation: Pin Prick Reduced (Distally pinprick reduced)
Coordination: [id number]-[id number]-lbyrjz Testing Unremarkable
Babinski Sign: Present on Right
Data Reviewed
-
CT Head: Report Reviewed and Image Reviewed
MRI Head: Report Reviewed and Image Reviewed
EMG: Report Reviewed
[2023-11-13 07:24] LABS: APTT 81.5 Sec (23.4-35.0)
--- NOTE | 2023-11-13 07:30 | PTCARENOTE ---
pt's wrist restraints removed at start of shift since pt's family was present and they are a positive distraction for pt.
[2023-11-13 08:16] LABS: ALT (SGPT) 37 U/L (0-50); AST (SGOT) 23 U/L (17-59); Albumin 2.7 g/dl (3.5-5.0); Alkaline Phosphatase 105 U/L (38-126); Blood Urea Nitrogen 51 mg/dl (9-20); Carbon Dioxide 21 mmol/L (22-30); Chloride 111 mmol/L (98-107); Estimated Creatinine Clearance 93 ml/min; Glucose 221 mg/dl (70-99); Magnesium 1.9 mg/dl (1.6-2.3); Phosphorus 4.2 mg/dl (2.5-4.5); Total Bilirubin 0.8 mg/dl (0.2-1.3); Total Protein 5.3 g/dl (6.3-8.2); eGFR > 60.00
[2023-11-13 08:39] LABS: Potassium 4.1 mmol/L (3.5-5.1); Sodium 141 mmol/L (135-145)
[2023-11-13] MEDS: TAPAZOLE 20 MG TUBE ×3 (09:00→21:29)
[2023-11-13] MEDS: DESENEX/MITRAZOL/ZEASORB 1 APPLIC TOPICAL ×2 (09:00→21:31)
[2023-11-13] MEDS: PROTONIX IV 40 MG IV (09:12)
[2023-11-13] MEDS: NSS (PRESERVATIVE FREE) 10 ML IV (09:13)
[2023-11-13] MEDS: HEPARIN 25000 UNITS/250 ML IV ×2 (09:16→21:33)
--- NOTE | 2023-11-13 11:33 | W.PN.GI.CBS2 ---
Addendum entered and electronically signed by Timmy Demarco MD 11/13/23 14:09:
I saw and examined the patient.
The TRADING FLOOR OPERATOR or PA's note was reviewed and I agree with the note.
Comment: 63 yo M a/w FTT found to have severe pharyngeal dysphagia thought likely to be from throtoxicosis.
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
Appreciate Dr. Membreno input may take 3 weeks to see resolution. He has discussed with endocrine.
Continue TF monitor for refeeding syndrome.
Suspect may need PEG prior to DC d/w family r/a/b reviewed including but not limited to bleeding, infection, perforation. On heparin gtt as well for A fib with RVR will need to be held.
Plan repeat VSE Friday (remove NGT at that time) see if any improvement if not plan PEG Friday.
GI will check back in on 11/16 to reassess patient after VSE to see if PEG is needed - d/w family at bedside. If GI assistance needed prior, please contact insulation cupola charger GI doctor.
Original Note:
Today's Communication / Plan
-
Etiology of multiple symptoms including wt loss, FTT, diarrhea, afib, weakness related to underlying thyroid dysfunction vs other
cont to treat correct thyroid dysfunction per medical team as reviewed with endocrine assist with plan for continued oral Methimazole then OP endocrine follow up
plan for cont speech follow and VSE Friday then decide on need for peg for Friday-- cannot leave hospital with NGT
cont NGT to help for stretching UES in case of web.
cont tube feeds up to 60ml/hr today with watch of electroltyes- which remains stable
reviewed with Dr. Isaac for elevated FBS with adding Tube feeds and steroids
pt remains on heparin gtt with Afib RVR if peg needed will need to hold
Assessment / Plan
-
Pt is a 63yo with hx HTN, hyperthyroidism on methimazole but not taking correctily prior to admission, LE enema noted with failure to thrive. On admission noted with Afib with RVR and marked thyroid abnormality with failure to thrive and asked to
evaluate. Pt also noted with mild hyponatremia, elevated troponin, elevated bilirubin 2.2, alk phos 150.
-failure to thrive
-failed VSE with mild oral and severe pharyngeal dysphagia and severe retention in the pharynx due to poor pharyngoesophageal segment opening with placement of NGT 11/09
-severe calorie malnutrition
-nausea/vomiting
-dysphagia
-diarrhea
-mild bili and alk phos elevation improving
-tachycardia
-afib with RVR
-hx hyperthyroidism off medication prior to admission with marked thyroid dysfunction on admission with TSH <0.02, T4 6.99, T3 >22.8
-wt loss
-mild anemia
-urinary retention
-mild bili and alk phos elevation
-hyponatremia
-increased troponin
-hypoalbuminemia
-hypergylcemia with steroid and tube feed use
other medical problems:
HTN
Peripheral edema
PLAN:
Etiology of multiple symptoms including wt loss, FTT, diarrhea, afib, weakness related to underlying thyroid dysfunction vs other
cont to treat correct thyroid dysfunction per medical team as reviewed with endocrine assist with plan for continued oral Methimazole then OP endocrine follow up
plan for cont speech follow and VSE Friday then decide on need for peg for Friday-- cannot leave hospital with NGT
cont NGT to help for stretching UES in case of web.
cont tube feeds up to 60ml/hr today with watch of electroltyes- which remains stable
reviewed with Dr. Isaac for elevated FBS with adding Tube feeds and steroids
pt remains on heparin gtt with Afib RVR if peg needed will need to hold
Subjective
Subjective
Date of Service: November 13, 2023
slow improvement, very talkative on tube feeds,yellow brown liquid stool
Objective
Data Reviewed
Laboratory Data:
Laboratory Results
11/13/23 06:56
11/13/23 06:56
Laboratory Results
PT 17.8 Sec (11.4-14.6) H 11/07/23 22:00
INR 1.48 11/07/23 22:00
APTT 81.5 Sec (23.4-35.0) H 11/13/23 06:56
Phosphorus 4.2 mg/dl (2.5-4.5) 11/13/23 06:56
Magnesium 1.9 mg/dl (1.6-2.3) 11/13/23 06:56
Total Bilirubin 0.8 mg/dl (0.2-1.3) 11/13/23 06:56
AST 23 U/L (17-59) 11/13/23 06:56
ALT 37 U/L (0-50) 11/13/23 06:56
Alkaline Phosphatase 105 U/L (38-126) 11/13/23 06:56
Vital Signs and I&O:
Vital Signs
Temp Pulse Resp BP Pulse Ox
97.8 F 91 22 158/69 97
11/13/23 11:26 11/13/23 11:26 11/13/23 11:26 11/13/23 11:26 11/13/23 11:26
I&O
11/12/23 11/13/23 11/14/23
06:59 06:59 06:59
Intake Total 1221 / 1221 120 / 120
Output Total 1200 / 1200 100 / 100
Balance
Physical Exam
Physical Exam
HEENT: Anicteric and Moist mucous membranes
Cardiology: Normal Sinus Rhythm
Pulmonary: Clear
GI: Soft, Non Distended, Non Tender and Other (DHT with tube feeds at 60ml )
Extremities: Edema
Neuro: Non Focal (thick speech but cooperative )
--- NOTE | 2023-11-13 12:09 | W.PN.HOSP.TC ---
Today's Communication/Plan
-
Continue tube feeds
PT
Low resistance NovoLog scale
Assessment / Plan
Assessment / Plan
Gen-awake, alert, NAD
HEENT-NC, AT, anicteric, clear oral mm, NG tube in place
Neck-supple
CV-reg, no M, +S1/S2
Lungs-clear B/L
Abd-soft, NT, ND
Ext-pretibial edema bilaterally
Musculoskeletal-no cyanosis, clubbing
Skin-warm and dry
Neuro-grossly non-focal
Psych-calm, cooperative
Severe dysphagia -strongly suspect due to thyrotoxicosis. Continue tube feeds via NG tube. Watch for refeeding syndrome.
On review of literature, thyrotoxicosis induced dysphagia can take on average 3 weeks to resolve.
A Fib RVR -likely triggered by hyperthyroidism. New diagnosis of atrial fibrillation. Heart rate overall improving on metoprolol 25 mg every 8 hours. Appreciate cardiology input. Continue IV heparin until decision has been made regarding
possible PEG tube.
Hyperthyroidism -thyrotoxicosis due to missed doses of methimazole at home. Apparently he ran out and failed to refill it according to family. I spoke with endocrinology (Dr. Love) on 11/10. Continue methimazole 20 mg 3 times daily.
Consideration for radioactive iodine ablation versus surgery discussed with endocrinology. Will need decision as an outpatient.
Recheck thyroid labs on Friday.
Severe protein calorie malnutrition -currently getting tube feeds via NG tube as above. Watch for refeeding syndrome.
Elevated troponin -suspect acute nonischemic myocardial injury due to acute illness. Troponin trending down.
Hyperglycemia -suspect due to steroids as well as impaired fasting glucose. Hemoglobin A1c 5.8%. Today will be last day of IV Solu-Medrol per neurology. Add low resistance sliding scale.
Hyponatremia -resolved.
Normocytic anemia -likely chronic. Outpatient follow-up.
Thrombocytopenia -suspect nonimmune thrombocytopenia related to heparin exposure. Monitor for now. Platelet count 109k.
Essential HTN -blood pressure is elevated. Was on furosemide and losartan at home. Will give metoprolol chance to work.
Suspected vascular dementia -brain MRI shows advanced leukoaraiosis, greater than expected for age. Chronic lacunar infarcts. Moderate to advanced atrophy. Outpatient follow-up recommended.
Full code
Dispo -eventual SNF when medically stable, likely next week.
Family updated at the bedside.
Anticipated Discharge: > 48 hours
Subjective/Interval History
-
Date of Service: November 13, 2023
Patient seen and examined. Looks and feels better. No complaints. Family at the bedside.
Objective Data
-
Labs:
Laboratory Results
11/13/23
06:56
WBC 5.6
Hgb 10.6 L
Hct 31.0 L
Plt Count 109 L
APTT 81.5 H
Sodium 141
Potassium 4.1
Chloride 111 H
Carbon Dioxide 21 L
BUN 51 H
Creatinine 0.8
Glucose 221 H
Calcium 9.0
Total Bilirubin 0.8
AST 23
ALT 37
Alkaline Phosphatase 105
Vital Signs:
Vital Signs
Temp Pulse Resp BP Pulse Ox
97.8 F 91 22 158/69 97
11/13/23 11:26 11/13/23 11:26 11/13/23 11:26 11/13/23 11:26 11/13/23 11:26
I&O
11/12/23 11/13/23 11/14/23
06:59 06:59 06:59
Intake Total 1221 / 1221 120 / 120
Output Total 1200 / 1200 100 / 100
Balance
Review of Systems
-
History Source: Patient
All other systems: Reviewed and negative
[2023-11-13] MEDS: SOLU-MEDROL 258 MG IV (13:00)
--- NOTE | 2023-11-13 14:09 | W.PN.UPDATE ---
Update Note
Progress Note Update
billing purposes
--- NOTE | 2023-11-13 14:28 | W.PN.CARDCBS ---
Addendum entered and electronically signed by Panfilo Polo MD 11/13/23 15:12:
I saw and examined the patient.
The Fpga Design Engineer's note was reviewed and I agree with the note.
Comment: Briefly, 63-year-old man presenting with thyrotoxicosis which precipitate atrial fibrillation with rapid ventricular response
Heart rates are better controlled on beta-camilla but remains in atrial fibrillation, will continue to slowly uptitrate metoprolol dosing which she is receiving via NG tube
Continue IV heparin for cardioembolic prophylaxis, consider transition to Eliquis when no further procedures are planned
Original Note:
Today's Communication / Plan
-
increase lopressor to 50mg Q8H
follow on tele
continue IV heparin
methimazole
Impression / Plan
-
PCP: EDDIE Gleason
Sports Writer: None prior to arrival, initially seen by Dr. Nieves
Impression:
Presented with failure to thrive
Atrial fibrillation with RVR�newly diagnosed
Confusion/weakness
Swallowing dysfunction
Medical noncompliance
Elevated troponin, suspected nonMI trop elevation
Loss of appetite
Hypertension
Lower extremity edema
Hyperthyroidism - uncontrolled
NSVT
Echo 09/01/2023: EF 55 to 60%, mild AI
Echo 11/10/2023: EF 50 to 55%, anteroseptum appears mildly hypokinetic
Plan:
-Presented with failure to thrive and noncompliance with medications. Uncontrolled hyperthyroidism noted on arrival with TSH < 0.02 and free T4 > 6.99.
-Noted to be in rapid atrial fibrillation on arrival which was a new diagnosis of unknown duration. Likely related to uncontrolled hyperthyroidism.
-also with significant dysphagia and tight upper esophageal sphincter on video swallow. gi following. felt to be secondary to hyperthyroidism. tolerating tube feeds. for repeat VSE Friday and possible PEG Friday
-on methimazole 20mg TID, continue
-continue rate control strategy of afib in setting of hyperthyroid state. overall HRs adequate in afib on review of tele overnight. he had 2 episodes of wide complex tachycardia, reviewed with EP. felt to be atrial tachycardia with bifascicular
aberrancy. increase lopressor dose to 50mg Q8H
-K 4.1. mag 1.9.
-continue IV heparin. follow platelets, stable at 109K. eventual transition to OAC. Both Eliquis and Xarelto expensive per CM.
-peak trop 0.6, suspected nonMI trop elevation. no CP. echo with results as above. discussed with patient/daughters at bedside 11/11/23. plan for OP ischemic eval once thyroid issues improved.
-proBNP 2550. OP lasix on hold. follow volume status
-MRI of brain showed significant small vessel ischemic disease and chronic infarcts. Neurology following
HPI: Elia is a 63-year-old male with past medical history of hypertension, extremity edema, and hyperthyroidism who presented to ER after being urged by his family. He reportedly has had no appetite for the past 2 weeks and has not been
eating or drinking or taking his medications. He denies any specific complaints, however does note some occasional dizziness at times. In ER, he was found to be in rapid atrial fibrillation on arrival with heart rate 128 bpm. He has no known
history of atrial fibrillation and is unsure how long he has been in this rhythm. He notes he has had episodes of confusion and difficulty with word finding recently and also has had episodes of weakness. He was given 5 mg of IV Lopressor and was
started on heparin drip given new rapid A-fib. Lab work revealed elevated troponin at 0.037 with elevated proBNP 2550. He also was noted to have TSH <0.02. Free T4 returned >6.99. Chest x-ray was negative. He is admitted for further workup and
evaluation of hyperthyroidism and rapid A-fib. Cardiology consulted for evaluation. He has no acute complaints at this time.
Progress Note - Sports Writer
Subjective
Date of Service: November 13, 2023
patient agitated overnight, attempting to remove NG tube and IV site. placed on wrist restraints
Objective
Labs:
11/13/23 06:56
11/13/23 06:56
Labs
Hgb 10.6 g/dL (13.0-18.0) L 11/13/23 06:56
Hct 31.0 % (39.0-52.0) L 11/13/23 06:56
Plt Count 109 10^3/uL (130-400) L 11/13/23 06:56
PT 17.8 Sec (11.4-14.6) H 11/07/23 22:00
INR 1.48 11/07/23 22:00
APTT 81.5 Sec (23.4-35.0) H 11/13/23 06:56
Sodium 141 mmol/L (135-145) 11/13/23 06:56
Potassium 4.1 mmol/L (3.5-5.1) 11/13/23 06:56
BUN 51 mg/dl (9-20) H 11/13/23 06:56
Creatinine 0.8 mg/dL (0.7-1.3) 11/13/23 06:56
Glucose 221 mg/dl (70-99) H 11/13/23 06:56
Vital Signs and I&O:
Vital Signs
Temp Pulse Resp BP Pulse Ox
97.8 F 91 22 158/69 97
11/13/23 11:26 11/13/23 11:26 11/13/23 11:26 11/13/23 11:11/13/23 11:26
Vital Signs
Temp Pulse Resp BP Pulse Ox
97.8 F 91 22 158/69 97
11/13/23 11:26 11/13/23 11:26 11/13/23 11:26 11/13/23 11:26 11/13/23 11:26
Intake & Output
11/11/23 11/12/23 11/13/23 11/14/23
07:59 07:59 07:59 07:59
Intake Total 1073 / 1073 1221 / 1221 120 / 120
Output Total 75 / 75 1200 / 1200 100 / 100
Balance 998 / 998
[2023-11-13] MEDS: LOPRESSOR 50 MG TUBE ×2 (15:00→21:31)
[2023-11-13] MEDS: LOPRESSOR TUBE (15:18)
--- NOTE | 2023-11-13 15:22 | CM ---
Chart reviewed and manager case reviewed physical therapy evaluation, recommendation is for skilled placement however patient and family want home at discharge, patient lives with his daughter, per daughter cost of Eliquis is $47 per month after
deductible has been met.
Plan; Home when stable.
[2023-11-13 17:58] LABS: Glucose - Point of Care 286 mg/dl (70-99)
[2023-11-13] MEDS: NOVOLOG FLEXPEN-LOW RESISTANCE 3 UNITS SC (18:30)
--- NOTE | 2023-11-13 18:35 | PTCARENOTE ---
offered patient washing, daughters give direction of what and how father will be bathed and repositioned in bed or out of bed in chair.
[2023-11-13 23:41] LABS: Glucose - Point of Care 229 mg/dl (70-99)
[2023-11-13 23:42] LABS: Thyroid Peroxidase Ab (TPO) 2.4 IU/mL (0.0-9.0)
[2023-11-14] MEDS: NOVOLOG FLEXPEN-LOW RESISTANCE 2 UNITS SC ×2 (01:02→18:44)
[2023-11-14 03:40] VITALS: BP 144/69
[2023-11-14] MEDS: LOPRESSOR 50 MG TUBE ×3 (06:01→21:53)
[2023-11-14 06:04] LABS: Glucose - Point of Care 225 mg/dl (70-99)
[2023-11-14] MEDS: NOVOLOG FLEXPEN-LOW RESISTANCE 300 UNITS SC (06:08)
[2023-11-14 07:24] LABS: APTT 74.3 Sec (23.4-35.0)
[2023-11-14 07:30] VITALS: BP 147/84
[2023-11-14 07:48] LABS: Blood Urea Nitrogen 56 mg/dl (9-20); Glucose 206 mg/dl (70-99)
[2023-11-14 07:49] LABS: ALT (SGPT) 39 U/L (0-50); AST (SGOT) 24 U/L (17-59); Albumin 2.7 g/dl (3.5-5.0); Alkaline Phosphatase 102 U/L (38-126); Calcium 8.9 mg/dl (8.4-10.2); Carbon Dioxide 24 mmol/L (22-30); Chloride 111 mmol/L (98-107); Estimated Creatinine Clearance 83 ml/min; HDL Cholesterol 35 mg/dl; LDL Cholesterol, Calculated 67 mg/dl; Magnesium 2.1 mg/dl (1.6-2.3); Phosphorus 4.3 mg/dl (2.5-4.5); Potassium 4.2 mmol/L (3.5-5.1); Sodium 142 mmol/L (135-145); Total Bilirubin 0.8 mg/dl (0.2-1.3); Total Cholesterol 120 mg/dl (50-199); Total Protein 5.4 g/dl (6.3-8.2); Triglyceride 92 mg/dl (10-149); Very Low Density Lipoprotein 18 mg/dl (0-30); eGFR > 60.00
[2023-11-14] MEDS: TAPAZOLE 20 MG TUBE ×3 (08:52→21:54)
[2023-11-14] MEDS: PROTONIX IV 40 MG IV (08:56)
[2023-11-14] MEDS: NSS (PRESERVATIVE FREE) 10 ML IV (08:57)
[2023-11-14] MEDS: FLUSH (NSS) 1 FLUSH IV ×2 (09:00→11:23)
[2023-11-14] MEDS: DESENEX/MITRAZOL/ZEASORB 1 APPLIC TOPICAL ×2 (09:07→21:55)
--- NOTE | 2023-11-14 10:34 | W.PN.CARDCBS ---
Addendum entered and electronically signed by Truong Camacho MD 11/14/23 11:21:
I saw and examined the patient.
The LENS GENERATOR or PA's note was reviewed and I agree with the note.
Comment: General: Appears chronically ill
Neck: Supple, no JVD, HJR, carotids +2 B/L, no bruits bilaterally.
Heart: Non displaced PMI, irregular, no murmurs, No S3, S4, no rubs.
Lungs: Scattered rhonchi
Extremities: No clubbing, cyanosis or edema bilaterally.
Neuro: Grossly nonfocal, awake, alert and oriented x3.
Stable cardiology status. Remains rate controlled in A-fib. Continue p.o. Lopressor 50 mg p.o. twice daily. Will give a dose of IV Lasix for possible acute diastolic CHF. Will then start Lasix 40 mg daily on 11/14. IV heparin for now until
decision is made on possible PEG tube which will depend on repeat video swallow to be done on 11/16. Eventual Eliquis. Could consider eventual possible cardioversion after hyperthyroidism treated but would this to be done as an outpatient. Consider
possible eventual outpatient ischemic evaluation based on regional wall motion abnormality noted on echocardiogram. discussed with daughters at bedside
Original Note:
Today's Communication / Plan
-
po lopressor 50mg BID
IV heparin
IV lasix x1 then po lasix 40mg daily in AM
compression stockings
Impression / Plan
-
PCP: EDDIE Gleason
Accounts Payable Analyst: None prior to arrival, initially seen by Dr. Nieves
Impression:
Presented with failure to thrive
Atrial fibrillation with RVR�newly diagnosed
Confusion/weakness
Swallowing dysfunction
Medical noncompliance
Elevated troponin, suspected nonMI trop elevation
Loss of appetite
Hypertension
Lower extremity edema
Hyperthyroidism - uncontrolled
NSVT
Echo 09/01/2023: EF 55 to 60%, mild AI
Echo 11/10/2023: EF 50 to 55%, anteroseptum appears mildly hypokinetic
Plan:
-Presented with failure to thrive and noncompliance with medications. Uncontrolled hyperthyroidism noted on arrival with TSH < 0.02 and free T4 > 6.99.
-Noted to be in rapid atrial fibrillation on arrival which was a new diagnosis of unknown duration. Likely related to uncontrolled hyperthyroidism.
-also with significant dysphagia and tight upper esophageal sphincter on video swallow. gi following. felt to be secondary to hyperthyroidism. tolerating tube feeds. for repeat VSE Friday and possible PEG Friday
-on methimazole 20mg TID, continue
-continue rate control strategy of afib in setting of hyperthyroid state. overall HRs adequate in afib on review of tele overnight. he had 2 brief additional episodes of wide complex tachycardia, reviewed with EP 11/12. felt to be atrial tachycardia
with bifascicular aberrancy. continue lopressor 50mg Q8H
-continue IV heparin. eventual transition to OAC. Both Eliquis and Xarelto expensive per CM.
-peak trop 0.6, suspected nonMI trop elevation. no CP. echo with results as above. discussed with patient/daughters at bedside 11/11/23. plan for OP ischemic eval once thyroid issues improved.
-proBNP 2550. with B/L LE edema and some rhonchi on exam today. will give IV lasix 40mg x1 and place on po lasix 40mg daily (OP dose) starting in AM. Cr stable
-will order compression stockings as well
-d/w daughters at bedside. d/w hospitalist
HPI: Elia is a 63-year-old male with past medical history of hypertension, extremity edema, and hyperthyroidism who presented to ER after being urged by his family. He reportedly has had no appetite for the past 2 weeks and has not been
eating or drinking or taking his medications. He denies any specific complaints, however does note some occasional dizziness at times. In ER, he was found to be in rapid atrial fibrillation on arrival with heart rate 128 bpm. He has no known
history of atrial fibrillation and is unsure how long he has been in this rhythm. He notes he has had episodes of confusion and difficulty with word finding recently and also has had episodes of weakness. He was given 5 mg of IV Lopressor and was
started on heparin drip given new rapid A-fib. Lab work revealed elevated troponin at 0.037 with elevated proBNP 2550. He also was noted to have TSH <0.02. Free T4 returned >6.99. Chest x-ray was negative. He is admitted for further workup and
evaluation of hyperthyroidism and rapid A-fib. Cardiology consulted for evaluation. He has no acute complaints at this time.
Progress Note - Accounts Payable Analyst
Subjective
Date of Service: November 14, 2023
Reports he is feeling well. Denies chest pain, shortness of breath, palpitations. Reports worsening lower extremity edema
Objective
Labs:
11/13/23 06:56
11/14/23 06:42
Labs
Hgb 10.6 g/dL (13.0-18.0) L 11/13/23 06:56
Hct 31.0 % (39.0-52.0) L 11/13/23 06:56
Plt Count 109 10^3/uL (130-400) L 11/13/23 06:56
PT 17.8 Sec (11.4-14.6) H 11/07/23 22:00
INR 1.48 11/07/23 22:00
APTT 74.3 Sec (23.4-35.0) H 11/14/23 06:42
Sodium 142 mmol/L (135-145) 11/14/23 06:42
Potassium 4.2 mmol/L (3.5-5.1) 11/14/23 06:42
BUN 56 mg/dl (9-20) H 11/14/23 06:42
Creatinine 0.9 mg/dL (0.7-1.3) 11/14/23 06:42
Glucose 206 mg/dl (70-99) H 11/14/23 06:42
Vital Signs and I&O:
Vital Signs
Temp Pulse Resp BP Pulse Ox
97.7 F 75 24 147/84 99
11/14/23 07:30 11/14/23 07:30 11/14/23 07:30 11/14/23 07:30 11/14/23 07:30
Vital Signs
Temp Pulse Resp BP Pulse Ox
97.7 F 75 24 147/84 99
11/14/23 07:30 11/14/23 07:30 11/14/23 07:30 11/14/23 07:30 11/14/23 07:30
Intake & Output
11/12/23 11/13/23 11/14/23 11/15/23
07:59 07:59 07:59 07:59
Intake Total 1221 / 1221 120 / 120 0 / 0 90 / 90
Output Total 1200 / 1200 100 / 100 750 / 750
Balance 21 / 21 20 / 20 -750 / -750 90 / 90
Physical Exam
Physical Exam
GEN: No distress, awake, alert, oriented x3. cachectic. NGT in place
HEENT: supple, anicteric, mmm, eomi
LUNGS: Rhonchi B/L, no wheezes
CV: Irreg, S1/S2, no murmur
ABD: soft, BS+, NT/ND
EXT: No cyanosis, clubbing. 2+ edema of B/L LE
NEURO: Gross non-focal
SKIN: Warm, pink, dry. No rash
[2023-11-14] MEDS: HEPARIN 25000 UNITS/250 ML IV (11:20)
[2023-11-14] MEDS: LASIX 40 MG IV (11:23)
--- NOTE | 2023-11-14 11:27 | W.PN.HOSP.TC ---
Today's Communication/Plan
-
Continue current care
Assessment / Plan
Assessment / Plan
Gen-awake, alert, NAD
HEENT-NC, AT, anicteric, clear oral mm, NG tube in place
Neck-supple
CV-reg, no M, +S1/S2
Lungs-clear B/L
Abd-soft, NT, ND
Ext-pretibial edema bilaterally
Musculoskeletal-no cyanosis, clubbing
Skin-warm and dry
Neuro-grossly non-focal
Psych-calm, cooperative
Severe dysphagia -strongly suspect due to thyrotoxicosis. Continue tube feeds via NG tube.
On review of literature, thyrotoxicosis induced dysphagia can take on average 3 weeks to resolve.
A Fib RVR -likely triggered by hyperthyroidism. New diagnosis of atrial fibrillation. Heart rate overall improving on metoprolol. Appreciate cardiology input. Continue IV heparin until decision has been made regarding possible PEG tube.
Hyperthyroidism -thyrotoxicosis due to missed doses of methimazole at home. Apparently he ran out and failed to refill it according to family. I spoke with endocrinology (Dr. Love) on 11/10. Continue methimazole 20 mg 3 times daily.
Consideration for radioactive iodine ablation versus surgery discussed with endocrinology. Will need decision as an outpatient.
Recheck thyroid labs on Friday.
Severe protein calorie malnutrition -currently getting tube feeds via NG tube as above. Watch for refeeding syndrome.
Elevated troponin -suspect acute nonischemic myocardial injury due to acute illness. Troponin trending down.
Hyperglycemia -suspect due to steroids as well as impaired fasting glucose. Hemoglobin A1c 5.8%. Completed 3 days of IV Solu-Medrol per neurology. Add low resistance sliding scale.
Hyponatremia -resolved.
Normocytic anemia -likely chronic. Outpatient follow-up.
Thrombocytopenia -suspect nonimmune thrombocytopenia related to heparin exposure. Monitor for now. Platelet count 109k.
Essential HTN -stable. Furosemide resumed.
Suspected vascular dementia -brain MRI shows advanced leukoaraiosis, greater than expected for age. Chronic lacunar infarcts. Moderate to advanced atrophy. Outpatient follow-up recommended.
Full code
Dispo -eventual SNF when medically stable, likely next week.
Family updated at the bedside.
Anticipated Discharge: > 48 hours
Subjective/Interval History
-
Date of Service: November 14, 2023
Patient seen and examined. Family at the bedside. Complaining of left ear fullness.
Objective Data
-
Labs:
Laboratory Results
11/14/23
06:42
APTT 74.3 H
Sodium 142
Potassium 4.2
Chloride 111 H
Carbon Dioxide 24
BUN 56 H
Creatinine 0.9
Glucose 206 H
Calcium 8.9
Total Bilirubin 0.8
AST 24
ALT 39
Alkaline Phosphatase 102
Vital Signs:
Vital Signs
Temp Pulse Resp BP Pulse Ox
97.7 F 75 24 147/84 99
11/14/23 07:30 11/14/23 07:30 11/14/23 07:30 11/14/23 07:30 11/14/23 07:30
I&O
11/13/23 11/14/23 11/15/23
06:59 06:59 06:59
Intake Total 120 / 120 0 / 0 90 / 90
Output Total 100 / 100 750 / 750
Balance 20 / 20 -750 / -750 90 / 90
Review of Systems
-
History Source: Patient
All other systems: Reviewed and negative
[2023-11-14 11:30] VITALS: BP 135/77
[2023-11-14 11:50] LABS: Glucose - Point of Care 183 mg/dl (70-99)
[2023-11-14] MEDS: NOVOLOG FLEXPEN-LOW RESISTANCE 1 UNITS SC (12:43)
--- NOTE | 2023-11-14 13:54 | CM ---
Chart reviewed and window caser did review skilled placement options and patient became upset, patient's daughters want patient to return to home, window caser will follow with patient progress with physical therapy.
Plan; Patient and family want home at discharge will need to follow with patient progress with physical therapy to see if this home is best option for patient.
[2023-11-14 16:00] VITALS: BP 146/78
[2023-11-14 17:45] LABS: Glucose - Point of Care 210 mg/dl (70-99)
[2023-11-14 20:02] VITALS: BP 143/88
[2023-11-14 23:36] VITALS: BP 162/69
[2023-11-15 00:25] LABS: Glucose - Point of Care 199 mg/dl (70-99)
[2023-11-15] MEDS: NOVOLOG FLEXPEN-LOW RESISTANCE 1 UNITS SC ×2 (00:39→06:01)
[2023-11-15] MEDS: HEPARIN 25000 UNITS/250 ML IV ×2 (00:44→15:02)
[2023-11-15 03:53] VITALS: BP 133/67
[2023-11-15] MEDS: LOPRESSOR 50 MG TUBE ×3 (05:46→21:09)
[2023-11-15 05:59] LABS: Glucose - Point of Care 157 mg/dl (70-99)
[2023-11-15 07:00] VITALS: BP 177/84
[2023-11-15 07:06] LABS: APTT 84.1 Sec (23.4-35.0); Hematocrit 34.2 % (39.0-52.0); Hemoglobin 11.4 g/dL (13.0-18.0); Mean Corp Hgb Conc. 33.3 g/dL (33.0-37.0); Mean Corpuscular Hgb 27.1 pg (27.0-31.0); Mean Corpuscular Volume 81.4 fL (80.0-94.0); Mean Platelet Volume 12.9 fL (7.4-10.4); Platelet Count 129 10^3/uL (130-400); Red Cell Dist. Width 14.5 % (11.5-14.5); White Blood Cell Count 7.3 10^3/uL (4.8-10.8)
[2023-11-15 07:35] LABS: ALT (SGPT) 53 U/L (0-50); AST (SGOT) 29 U/L (17-59); Albumin 2.8 g/dl (3.5-5.0); Alkaline Phosphatase 98 U/L (38-126); Blood Urea Nitrogen 61 mg/dl (9-20); Calcium 8.6 mg/dl (8.4-10.2); Carbon Dioxide 26 mmol/L (22-30); Chloride 108 mmol/L (98-107); Estimated Creatinine Clearance 93 ml/min; Glucose 149 mg/dl (70-99); Phosphorus 4.3 mg/dl (2.5-4.5); Potassium 3.9 mmol/L (3.5-5.1); Sodium 139 mmol/L (135-145); Total Protein 5.5 g/dl (6.3-8.2); eGFR > 60.00
[2023-11-15] MEDS: TAPAZOLE 20 MG TUBE ×3 (08:10→21:11)
[2023-11-15] MEDS: LASIX 40 MG PO (08:10)
[2023-11-15] MEDS: PROTONIX IV 40 MG IV (08:10)
[2023-11-15] MEDS: DESENEX/MITRAZOL/ZEASORB 1 APPLIC TOPICAL ×2 (08:11→21:14)
[2023-11-15] MEDS: NSS (PRESERVATIVE FREE) 10 ML IV (08:11)
--- NOTE | 2023-11-15 10:36 | W.PN.HOSP.TC ---
Today's Communication/Plan
-
Acapella
Assessment / Plan
Assessment / Plan
Gen-awake, alert, NAD
HEENT-NC, AT, anicteric, clear oral mm, NG tube in place
Neck-supple
CV-reg, no M, +S1/S2
Lungs-clear B/L
Abd-soft, NT, ND
Ext-pretibial edema bilaterally
Musculoskeletal-no cyanosis, clubbing
Skin-warm and dry
Neuro-grossly non-focal
Psych-calm, cooperative
Severe dysphagia -strongly suspect due to thyrotoxicosis. Continue tube feeds via NG tube.
On review of literature, thyrotoxicosis induced dysphagia can take on average 3 weeks to resolve.
A Fib RVR -likely triggered by hyperthyroidism. New diagnosis of atrial fibrillation. Heart rate overall improving on metoprolol. Appreciate cardiology input. Continue IV heparin until decision has been made regarding possible PEG tube.
Hyperthyroidism -thyrotoxicosis due to missed doses of methimazole at home. Apparently he ran out and failed to refill it according to family. I spoke with endocrinology (Dr. Love) on 11/10. Continue methimazole 20 mg 3 times daily.
Consideration for radioactive iodine ablation versus surgery discussed with endocrinology. Will need decision as an outpatient.
Recheck thyroid labs on Friday.
Severe protein calorie malnutrition -currently getting tube feeds via NG tube as above. Watch for refeeding syndrome.
Subacute bronchitis -add Acapella, discussed with patient, family, nurse.
Elevated troponin -suspect acute nonischemic myocardial injury due to acute illness. Troponin trending down.
Hyperglycemia -suspect due to steroids as well as impaired fasting glucose. Hemoglobin A1c 5.8%. Completed 3 days of IV Solu-Medrol per neurology. Add low resistance sliding scale. Glucose improved, 149 this morning.
Hyponatremia -resolved.
Normocytic anemia -likely chronic. Outpatient follow-up.
Thrombocytopenia -suspect nonimmune thrombocytopenia related to heparin exposure. Monitor for now. Platelet count 109k.
Essential HTN -blood pressure running high. Continue furosemide, resume losartan.
Suspected vascular dementia -brain MRI shows advanced leukoaraiosis, greater than expected for age. Chronic lacunar infarcts. Moderate to advanced atrophy. Outpatient follow-up recommended.
Full code
Dispo -eventual SNF when medically stable, likely next week.
Family updated at the bedside.
Anticipated Discharge: > 48 hours
Subjective/Interval History
-
Date of Service: November 15, 2023
Patient seen and examined. Family at the bedside. Complaining of cough.
Objective Data
-
Labs:
Laboratory Results
11/15/23
05:53
WBC 7.3
Hgb 11.4 L
Hct 34.2 L
Plt Count 129 L
APTT 84.1 H
Sodium 139
Potassium 3.9
Chloride 108 H
Carbon Dioxide 26
BUN 61 H
Creatinine 0.8
Glucose 149 H
Calcium 8.6
Total Bilirubin 1.0
AST 29
ALT 53 H
Alkaline Phosphatase 98
Vital Signs:
Vital Signs
Temp Pulse Resp BP Pulse Ox
97.6 F 88 18 177/84 97
11/15/23 07:00 11/15/23 08:10 11/15/23 07:00 11/15/23 08:10 11/15/23 07:00
I&O
11/14/23 11/15/23 11/16/23
06:59 06:59 06:59
Intake Total 0 / 0 2460 / 2460
Output Total 750 / 750 1525 / 1525
Balance -750 / -750 935 / 935
Review of Systems
-
History Source: Patient
All other systems: Reviewed and negative
--- NOTE | 2023-11-15 10:48 | W.PN.CARDCBS ---
Addendum entered and electronically signed by Marquez Arroyo MD 11/15/23 11:59:
Continue with oral Lasix
IV heparin until can transition to DOAC
Original Note:
Today's Communication / Plan
-
Cont Lasix PO
Impression / Plan
-
PCP: EDDIE Gleason
Cryptographic Technician: None prior to arrival, initially seen by Dr. Nieves
Impression:
Presented with failure to thrive
Atrial fibrillation with RVR�newly diagnosed
Confusion/weakness
Swallowing dysfunction
Medical noncompliance
Elevated troponin, suspected nonMI trop elevation
Loss of appetite
Hypertension
Lower extremity edema
Hyperthyroidism - uncontrolled
NSVT
Echo 09/01/2023: EF 55 to 60%, mild AI
Echo 11/10/2023: EF 50 to 55%, anteroseptum appears mildly hypokinetic
Plan:
-Daily weight not being recorded, but patient with increased LE edema so he was given Lasix 40 mg IV x1 on 11/14/23 and then his outpatient dose of Lasix 40 mg PO daily was restarted 11/15/23. Patient has been on and off of Lasix PO this admission due
to NPO status.
-Cre stable
-Patient says he is going home 11/15/23, but review of hospitalist attending notes he is staying for a swallow evaluation on Friday which will help determine if he needs a PEG tube
-Presented with failure to thrive and noncompliance with medications. Uncontrolled hyperthyroidism noted on arrival with TSH < 0.02 and free T4 > 6.99.
-Noted to be in rapid Afib on arrival which was a new diagnosis of unknown duration and likely related to uncontrolled hyperthyroidism. He is now on methimazole 20mg TID
-Plan for Afib is rate control with Lopressor 50 mg via tube TID.
-He had 2 brief additional episodes of wide complex tachycardia, reviewed with EP 11/13/23 that were felt to be atrial tachycardia with bifascicular aberrancy.
-Cont Heparin gtt and eventually transition to OAC. Both Eliquis and Xarelto expensive per CM and his daughter is a certified pharmacy technician and worked on cost, it will be $47/month.
-Peak Troponin 0.6, will manage as a nonischemic myocardial injury Troponin elevation
HPI: Elia is a 63-year-old male with past medical history of hypertension, extremity edema, and hyperthyroidism who presented to ER after being urged by his family. He reportedly has had no appetite for the past 2 weeks and has not been
eating or drinking or taking his medications. He denies any specific complaints, however does note some occasional dizziness at times. In ER, he was found to be in rapid atrial fibrillation on arrival with heart rate 128 bpm. He has no known
history of atrial fibrillation and is unsure how long he has been in this rhythm. He notes he has had episodes of confusion and difficulty with word finding recently and also has had episodes of weakness. He was given 5 mg of IV Lopressor and was
started on heparin drip given new rapid A-fib. Lab work revealed elevated troponin at 0.037 with elevated proBNP 2550. He also was noted to have TSH <0.02. Free T4 returned >6.99. Chest x-ray was negative. He is admitted for further workup and
evaluation of hyperthyroidism and rapid A-fib. Cardiology consulted for evaluation. He has no acute complaints at this time.
Progress Note - Cryptographic Technician
Subjective
Date of Service: November 15, 2023
He feels well, but says he is going home
Objective
Labs:
11/15/23 05:53
11/15/23 05:53
Labs
Hgb 11.4 g/dL (13.0-18.0) L 11/15/23 05:53
Hct 34.2 % (39.0-52.0) L 11/15/23 05:53
Plt Count 129 10^3/uL (130-400) L 11/15/23 05:53
PT 17.8 Sec (11.4-14.6) H 11/07/23 22:00
INR 1.48 11/07/23 22:00
APTT 84.1 Sec (23.4-35.0) H 11/15/23 05:53
Sodium 139 mmol/L (135-145) 11/15/23 05:53
Potassium 3.9 mmol/L (3.5-5.1) 11/15/23 05:53
BUN 61 mg/dl (9-20) H 11/15/23 05:53
Creatinine 0.8 mg/dL (0.7-1.3) 11/15/23 05:53
Glucose 149 mg/dl (70-99) H 11/15/23 05:53
Vital Signs and I&O:
Vital Signs
Temp Pulse Resp BP Pulse Ox
97.6 F 88 18 177/84 97
11/15/23 07:00 11/15/23 08:10 11/15/23 07:00 11/15/23 08:10 11/15/23 07:00
Vital Signs
Temp Pulse Resp BP Pulse Ox
97.6 F 88 18 177/84 97
11/15/23 07:00 11/15/23 08:10 11/15/23 07:00 11/15/23 08:10 11/15/23 07:00
Intake & Output
11/13/23 11/14/23 11/15/23 11/16/23
06:59 06:59 06:59 06:59
Intake Total 120 / 120 0 / 0 2460 / 2460
Output Total 100 / 100 750 / 750 1525 / 1525
Balance 20 / 20 -750 / -750 935 / 935
Physical Exam
Physical Exam
GEN: No distress, awake, alert, oriented x3. cachectic. NGT in place
HEENT: supple, anicteric, mmm, eomi
LUNGS: Rhonchi B/L, no wheezes
CV: Irreg, S1/S2, no murmur
ABD: soft, BS+, NT/ND
EXT: No cyanosis, clubbing. 2+ edema of B/L LE
NEURO: Gross non-focal
SKIN: Warm, pink, dry. No rash
[2023-11-15 11:00] VITALS: BP 135/76
--- NOTE | 2023-11-15 11:16 | PTCARENOTE ---
per cardiology pt to remain on telemetry
[2023-11-15 12:17] LABS: Glucose - Point of Care 118 mg/dl (70-99)
[2023-11-15] MEDS: NOVOLOG FLEXPEN-LOW RESISTANCE SC ×2 (12:20→18:06)
[2023-11-15] MEDS: COZAAR 50 MG TUBE (12:51)
--- NOTE | 2023-11-15 14:04 | CM ---
Addendum entered by Nury Valverde 11/15/23 15:44:
CM met with patients three daughters, provided list of VN agencies.
Original Note:
Patient and daughter seen bedside, daughter reports her other sister will be here shortly and would like to speak to CM. CM will discuss PT recommendations of home with family and home PT. CM will continue to follow for discharge planning needs.
Plan; home with family and VN of families choosing.
[2023-11-15 15:00] VITALS: BP 137/67
[2023-11-15 17:58] LABS: Glucose - Point of Care 129 mg/dl (70-99)
[2023-11-15 20:19] VITALS: BP 106/67
[2023-11-15 23:25] VITALS: BP 123/86
[2023-11-16 00:32] LABS: Glucose - Point of Care 135 mg/dl (70-99)
[2023-11-16] MEDS: NOVOLOG FLEXPEN-LOW RESISTANCE SC ×4 (00:44→17:36)
[2023-11-16 03:47] VITALS: BP 138/66
[2023-11-16] MEDS: HEPARIN 25000 UNITS/250 ML IV ×2 (03:50→19:11)
[2023-11-16 04:51] VITALS: BMI 23.0
[2023-11-16 05:31] VITALS: BMI 23.0
[2023-11-16 05:55] LABS: APTT 131.2 Sec (23.4-35.0)
[2023-11-16 05:59] LABS: Glucose - Point of Care 124 mg/dl (70-99)
[2023-11-16 06:00] VITALS: BMI 21.8
[2023-11-16] MEDS: LOPRESSOR 50 MG TUBE ×3 (06:12→21:32)
[2023-11-16 07:00] VITALS: BP 103/57
[2023-11-16] MEDS: PROTONIX IV 40 MG IV (09:15)
[2023-11-16] MEDS: NSS (PRESERVATIVE FREE) 10 ML IV (09:15)
[2023-11-16] MEDS: DESENEX/MITRAZOL/ZEASORB 1 APPLIC TOPICAL ×2 (09:16→20:25)
[2023-11-16] MEDS: LASIX PO (09:16)
[2023-11-16] MEDS: COZAAR TUBE (09:16)
[2023-11-16] MEDS: TAPAZOLE 20 MG TUBE ×3 (09:22→21:32)
--- NOTE | 2023-11-16 10:01 | W.PN.HOSP.TC ---
Today's Communication/Plan
-
Continue bladder scans
Urinalysis
Assessment / Plan
Assessment / Plan
Gen-awake, alert, NAD
HEENT-NC, AT, anicteric, clear oral mm, NG tube in place
Neck-supple
CV-reg, no M, +S1/S2
Lungs-clear B/L
Abd-soft, NT, ND
Ext-pretibial edema bilaterally
Musculoskeletal-no cyanosis, clubbing
Skin-warm and dry
Neuro-grossly non-focal
Psych-calm, cooperative
Severe dysphagia -strongly suspect due to thyrotoxicosis. Continue tube feeds via NG tube. Speech therapy to reassess swallowing on Friday. If he fails, will need PEG tube.
On review of literature, thyrotoxicosis induced dysphagia can take on average 3 weeks to resolve.
A Fib RVR -likely triggered by hyperthyroidism. New diagnosis of atrial fibrillation. Heart rate overall improving on metoprolol. Appreciate cardiology input. Continue IV heparin until decision has been made regarding possible PEG tube.
Hyperthyroidism -thyrotoxicosis due to missed doses of methimazole at home. Apparently he ran out and failed to refill it according to family. I spoke with endocrinology (Dr. Love) on 11/10. Continue methimazole 20 mg 3 times daily.
Consideration for radioactive iodine ablation versus surgery discussed with endocrinology. Will need decision as an outpatient.
Recheck thyroid labs on Friday.
Severe protein calorie malnutrition -currently getting tube feeds via NG tube as above. Watch for refeeding syndrome.
Subacute bronchitis -continue Acapella, discussed with patient, family, nurse.
Urinary retention -unknown acuity. Bladder scan this morning showed 600 cc, straight cath per protocol. If he fails, may need Dixon catheter. Check urinalysis given complaints of dysuria. Ideally needs Flomax but he cannot swallow and we cannot
crush this.
Elevated troponin -suspect acute nonischemic myocardial injury due to acute illness. Troponin trending down.
Hyperglycemia -suspect due to steroids as well as impaired fasting glucose. Hemoglobin A1c 5.8%. Completed 3 days of IV Solu-Medrol per neurology. Add low resistance sliding scale. Glucose improved, 124 this morning.
Hyponatremia -resolved.
Normocytic anemia -likely chronic. Outpatient follow-up.
Thrombocytopenia -suspect nonimmune thrombocytopenia related to heparin exposure. Monitor for now. Platelet count 109k.
Essential HTN -relative hypotension noted this morning. Hold losartan and furosemide today. Discussed with nursing.
Suspected vascular dementia -brain MRI shows advanced leukoaraiosis, greater than expected for age. Chronic lacunar infarcts. Moderate to advanced atrophy. Outpatient follow-up recommended.
Full code
Dispo -eventual SNF when medically stable.
Family updated at the bedside.
Anticipated Discharge: > 48 hours
Subjective/Interval History
-
Date of Service: November 16, 2023
Patient seen and examined. Complaining of dysuria for the nurse.
Objective Data
-
Labs:
Laboratory Results
11/16/23 11/16/23
05:31 12:30
APTT 131.2 H Pending
Sodium Pending
Potassium Pending
Chloride Pending
Carbon Dioxide Pending
BUN Pending
Creatinine Pending
Glucose Pending
Calcium Pending
Total Bilirubin Pending
AST Pending
ALT Pending
Alkaline Phosphatase Pending
Vital Signs:
Vital Signs
Temp Pulse Resp BP Pulse Ox
98.1 F 65 18 103/57 97
11/16/23 07:00 11/16/23 09:16 11/16/23 07:00 11/16/23 09:16 11/16/23 07:00
I&O
11/15/23 11/16/23 11/17/23
06:59 06:59 06:59
Intake Total 2460 / 2460 1320 / 1320
Output Total 1525 / 1525 550 / 550
Balance 935 / 935 770 / 770
Review of Systems
-
History Source: Patient
All other systems: Reviewed and negative
[2023-11-16 10:51] LABS: ALT (SGPT) 58 U/L (0-50); AST (SGOT) 27 U/L (17-59); Albumin 2.5 g/dl (3.5-5.0); Alkaline Phosphatase 98 U/L (38-126); Blood Urea Nitrogen 51 mg/dl (9-20); Calcium 8.3 mg/dl (8.4-10.2); Carbon Dioxide 26 mmol/L (22-30); Chloride 106 mmol/L (98-107); Estimated Creatinine Clearance 114 ml/min; Glucose 128 mg/dl (70-99); Magnesium 1.9 mg/dl (1.6-2.3); Phosphorus 3.9 mg/dl (2.5-4.5); Potassium 3.6 mmol/L (3.5-5.1); Sodium 136 mmol/L (135-145); Total Bilirubin 0.9 mg/dl (0.2-1.3); eGFR > 60.00
[2023-11-16 11:00] VITALS: BP 128/62
[2023-11-16 11:50] LABS: Glucose - Point of Care 133 mg/dl (70-99)
[2023-11-16 15:22] LABS: Urine Albumin Negative (Neg - Trace); Urine Bilirubin Negative (Negative); Urine Character Clear (Clear); Urine Color Yellow; Urine Glucose Negative (Negative); Urine Ketone Negative (Negative); Urine Leukocyte Trace (Negative); Urine Nitrite Negative (Negative); Urine Occult Blood Negative (Negative); Urine Specific Gravity 1.015 (<1.030); Urine Urobilinogen 2+ (Neg - 1+)
[2023-11-16 15:30] VITALS: BP 116/6
[2023-11-16 15:33] LABS: Urine Mucus Few
[2023-11-16 15:35] LABS: Urine Bacteria Many (Negative); Urine Hyaline Cast 0-2 /LPF (0-2)
[2023-11-16 17:28] LABS: Glucose - Point of Care 122 mg/dl (70-99)
[2023-11-16 18:49] LABS: APTT 95.7 Sec (23.4-35.0)
[2023-11-16 20:00] VITALS: BP 119/79
[2023-11-16 23:09] VITALS: BP 132/64
[2023-11-17] VITALS (8 sets, daily range): BP systolic 94–124; BP diastolic 47–63; BMI 21.8
[2023-11-17 00:13] LABS: Glucose - Point of Care 118 mg/dl (70-99)
[2023-11-17] MEDS: NOVOLOG FLEXPEN-LOW RESISTANCE SC ×4 (00:15→18:08)
[2023-11-17] MEDS: LOPRESSOR 50 MG TUBE (05:21)
[2023-11-17 05:29] LABS: Glucose - Point of Care 139 mg/dl (70-99)
--- NOTE | 2023-11-17 06:10 | W.PN.GI.CBS2 ---
Today's Communication / Plan
-
See assessment and plan for details.
Assessment / Plan
-
1. Oropharyngeal dysphagia: Likely secondary to hyperthyroid state, with overall improving other symptoms. At this point today we will DC NG tube prior to speech evaluation and video swallow. If he passes then we will hold on further workup, if
he still has severe oropharyngeal dysphagia then we will plan PEG tube tomorrow. I discussed with him and his family at length.
Subjective
Subjective
Date of Service: November 17, 2023
Patient doing well overall, feels overall stronger, has tolerated tube feeds without difficulty.
Objective
Data Reviewed
Laboratory Data:
Laboratory Results
PT 17.8 Sec (11.4-14.6) H 11/07/23 22:00
INR 1.48 11/07/23 22:00
APTT 95.7 Sec (23.4-35.0) H 11/16/23 18:28
Phosphorus 3.9 mg/dl (2.5-4.5) 11/16/23 05:31
Magnesium 1.9 mg/dl (1.6-2.3) 11/16/23 05:31
Total Bilirubin 0.9 mg/dl (0.2-1.3) 11/16/23 05:31
AST 27 U/L (17-59) 11/16/23 05:31
ALT 58 U/L (0-50) H 11/16/23 05:31
Alkaline Phosphatase 98 U/L (38-126) 11/16/23 05:31
Vital Signs and I&O:
Vital Signs
Temp Pulse Resp BP Pulse Ox
98.5 F 82 18 115/55 98
11/17/23 03:13 11/17/23 05:21 11/17/23 05:16 11/17/23 05:21 11/17/23 03:13
I&O
11/15/23 11/16/23 11/17/23
06:59 06:59 06:59
Intake Total 2460 / 2460 1320 / 1320 1080 / 1080
Output Total 1525 / 1525 550 / 550 1175 / 1175
Balance 935 / 935 770 / 770 -95 / -95
Physical Exam
Physical Exam
General: NAD
Abdomen: normal bowel sounds, soft, no tenderness, no masses or bruits, no ascites
[2023-11-17 06:17] LABS: Hematocrit 33.3 % (39.0-52.0); Hemoglobin 10.8 g/dL (13.0-18.0); Mean Corp Hgb Conc. 32.4 g/dL (33.0-37.0); Mean Corpuscular Hgb 26.9 pg (27.0-31.0); Mean Platelet Volume 12.2 fL (7.4-10.4); Platelet Count 132 10^3/uL (130-400); Red Blood Cell Count 4.01 10^6/uL (4.70-6.10); Red Cell Dist. Width 14.5 % (11.5-14.5); White Blood Cell Count 7.5 10^3/uL (4.8-10.8)
[2023-11-17 06:26] LABS: APTT 96.8 Sec (23.4-35.0)
[2023-11-17 06:50] LABS: ALT (SGPT) 48 U/L (0-50); AST (SGOT) 21 U/L (17-59); Albumin 2.4 g/dl (3.5-5.0); Alkaline Phosphatase 98 U/L (38-126); Blood Urea Nitrogen 38 mg/dl (9-20); Calcium 8.1 mg/dl (8.4-10.2); Carbon Dioxide 31 mmol/L (22-30); Chloride 100 mmol/L (98-107); Estimated Creatinine Clearance 108 ml/min; Glucose 119 mg/dl (70-99); Magnesium 1.9 mg/dl (1.6-2.3); Phosphorus 3.7 mg/dl (2.5-4.5); Potassium 3.8 mmol/L (3.5-5.1); Sodium 136 mmol/L (135-145); Total Bilirubin 0.9 mg/dl (0.2-1.3); Total Protein 4.9 g/dl (6.3-8.2); eGFR > 60.00
[2023-11-17 07:19] LABS: Free T3 5.63 pg/ml (2.77-5.27); Free T4 1.48 ng/dl (0.78-2.19)
[2023-11-17 07:33] LABS: TSH < 0.02 uIU/ml (0.47-4.68)
--- NOTE | 2023-11-17 07:53 | W.PN.HOSP.TC ---
Today's Communication/Plan
-
VSE today. GI follow-up.
Assessment / Plan
Assessment / Plan
Gen-awake, alert, NAD
HEENT-NC, AT, anicteric, clear oral mm, NG tube in place
Neck-supple
CV-reg, no M, +S1/S2
Lungs-clear B/L
Abd-soft, NT, ND
Ext-pretibial edema bilaterally
Musculoskeletal-no cyanosis, clubbing
Skin-warm and dry
Neuro-grossly non-focal
Psych-calm, cooperative
A/P:
Severe dysphagia -strongly suspect due to thyrotoxicosis. Stopped tube feeds via NG tube today on 11/16. Speech therapy to reassess swallowing today on Friday. If he fails, will need PEG tube tomorrow. Speech therapy and GI following.
On review of literature, thyrotoxicosis induced dysphagia can take on average 3 weeks to resolve. Preliminary report of VSE appears to be abnormal so most likely will need PEG. Discussed with family at bedside. Discussed with RN at bedside.
A Fib RVR -likely triggered by hyperthyroidism. New diagnosis of atrial fibrillation. Heart rate overall improving on metoprolol. Appreciate cardiology input. Continue IV heparin until decision has been made regarding possible PEG tube.
Hyperthyroidism -thyrotoxicosis due to missed doses of methimazole at home. Apparently he ran out and failed to refill it according to family. I touched base with endocrinology earlier (Dr. Love) and Dr Isaac spoke on 11/10. Continue
methimazole 20 mg 3 times daily. Consideration for radioactive iodine ablation versus surgery discussed with endocrinology. Will need decision as an outpatient.
Recheck thyroid labs on Thursday 11/16--> TSH less than 0.02, free T4 1.48 (prior was > 6.99), free T3 5.63 (prior was > 22.8).
Severe protein calorie malnutrition -currently getting tube feeds via NG tube as above. Watch for refeeding syndrome. Albumin 2.4
Subacute bronchitis -continue Acapella, discussed with patient, family, nurse.
Urinary retention -unknown acuity. Bladder scan this morning showed 600 cc, straight cath per protocol. If he fails, may need Dixon catheter. Check urinalysis given complaints of dysuria--> urine culture pending. Ideally needs Flomax but he
cannot swallow and we cannot crush this.
Elevated troponin -suspect acute nonischemic myocardial injury due to acute illness. Troponin trending down.
Hyperglycemia -suspect due to steroids as well as impaired fasting glucose. Hemoglobin A1c 5.8%. Completed 3 days of IV Solu-Medrol per neurology. Add low resistance sliding scale. Glucose improved, 124 this morning.
Hyponatremia -resolved.
Normocytic anemia -likely chronic. Outpatient follow-up.
Thrombocytopenia -suspect nonimmune thrombocytopenia related to heparin exposure. Monitor for now. Platelet count normal today on 11/16 is 132k.
Essential HTN -relative hypotension noted this morning. Held losartan and furosemide yesterday.
Suspected vascular dementia -brain MRI shows advanced leukoaraiosis, greater than expected for age. Chronic lacunar infarcts. Moderate to advanced atrophy. Outpatient follow-up recommended.
Full code
Anticipated Discharge: > 48 hours
Subjective/Interval History
-
Date of Service: November 17, 2023
Patient in good spirits today. NG tube out. No chest pain or shortness of breath.
Objective Data
-
Labs:
Laboratory Results
11/17/23
05:31
WBC 7.5
Hgb 10.8 L
Hct 33.3 L
Plt Count 132
APTT 96.8 H
Sodium 136
Potassium 3.8
Chloride 100
Carbon Dioxide 31 H
BUN 38 H
Creatinine 0.7
Glucose 119 H
Calcium 8.1 L
Total Bilirubin 0.9
AST 21
ALT 48
Alkaline Phosphatase 98
Vital Signs:
Vital Signs
Temp Pulse Resp BP Pulse Ox
98.5 F 82 18 115/55 98
11/17/23 03:13 11/17/23 05:21 11/17/23 05:16 11/17/23 05:21 11/17/23 03:13
I&O
11/16/23 11/17/23 11/18/23
06:59 06:59 06:59
Intake Total 1320 / 1320 1080 / 1080
Output Total 550 / 550 1175 / 1175
Balance 770 / 770 -95 / -95
[2023-11-17] MEDS: LASIX 40 MG PO (08:49)
[2023-11-17] MEDS: COZAAR 50 MG TUBE (08:50)
[2023-11-17] MEDS: TAPAZOLE 20 MG TUBE (08:50)
[2023-11-17] MEDS: NSS (PRESERVATIVE FREE) 10 ML IV (08:55)
[2023-11-17] MEDS: PROTONIX IV 40 MG IV (08:55)
[2023-11-17] MEDS: DESENEX/MITRAZOL/ZEASORB 1 APPLIC TOPICAL ×2 (08:58→21:00)
[2023-11-17] MEDS: HEPARIN 25000 UNITS/250 ML IV (09:49)
--- NOTE | 2023-11-17 10:18 | W.PN.CARDCBS ---
Addendum entered and electronically signed by Truong Camacho MD 11/17/23 11:10:
I saw and examined the patient.
The LVN LPN or PA's note was reviewed and I agree with the note.
Comment: General: Well developed, well nourished in NAD.
Neck: Supple, no JVD, HJR, carotids +2 B/L, no bruits bilaterally.
Heart: Non displaced PMI, Irreg, no murmurs, No S3, S4, no rubs.
Lungs: Clear to auscultation bilaterally, no wheeze, rhonchi, rubs bilaterally,
normal expiratory phase..
Extremities: No clubbing, cyanosis or edema bilaterally.
Neuro: Grossly nonfocal, awake, alert and oriented x3.
Remains in rate controlled A-fib on tid Lopressor. Eventually change Lopressor to twice daily dosing. IV heparin for now until decision is made about possible PEG tube. Eventual Eliquis. Might consider outpatient cardioversion when
hyperthyroidism has been treated and stable on anticoagulation. Discussed with patient and daughters at bedside.
Original Note:
Today's Communication / Plan
-
Continue rate control with lopressor 50mg TID
IV heparin for anticoagulation for now
Repeat swallow study planned today.
Impression / Plan
-
PCP: EDDIE Gleason
Prestressed Concrete Laborer: None prior to arrival, initially seen by Dr. Nieves
Impression:
Presented with failure to thrive
Atrial fibrillation with RVR�newly diagnosed
Confusion/weakness
Swallowing dysfunction
Medical noncompliance
Elevated troponin, suspected
Loss of appetite
Hypertension
Lower extremity edema
Hyperthyroidism - uncontrolled
NSVT
Echo 09/01/2023: EF 55 to 60%, mild AI
Echo 11/10/2023: EF 50 to 55%, anteroseptum appears mildly hypokinetic
Plan:
-Presented with failure to thrive and noncompliance with medications. Uncontrolled hyperthyroidism noted on arrival with TSH < 0.02 and free T4 > 6.99.
-Noted to be in rapid Afib on arrival which was a new diagnosis of unknown duration and likely related to uncontrolled hyperthyroidism. He is now on methimazole 20mg TID.
-TSH remains <0.02, however free T4 improved to 1.48 11/16. Continue to follow.
-Current plan for Afib is rate control with Lopressor 50 mg via tube TID. GI following and plan is for another swallow evaluation today, 11/16. If severe dysphagia still noted, will plan for PEG tube placement 11/17.
-He had 2 brief additional episodes of wide complex tachycardia, reviewed with EP 11/13/23 that were felt to be atrial tachycardia with bifascicular aberrancy.
-Cont Heparin gtt and eventually transition to OAC once able. Both Eliquis and Xarelto expensive per CM, but his daughter is a pharmacy sales assistant and worked on cost, it will be $47/month.
-Peak Troponin 0.6, will manage as a nonischemic myocardial injury due to thyrotoxicosis and rapid afib.
-Prior to admission, patient was prescribed lasix 40mg daily, however this has been intermittently held this admission due to NPO status.
-Given Lasix 40 mg IV x1 on 11/14/23 due to increased LE edema. PO lasix restarted 11/15/23. Creat stable. Weight 160lbs 11/15.
HPI: Elia is a 63-year-old male with past medical history of hypertension, extremity edema, and hyperthyroidism who presented to ER after being urged by his family. He reportedly has had no appetite for the past 2 weeks and has not been
eating or drinking or taking his medications. He denies any specific complaints, however does note some occasional dizziness at times. In ER, he was found to be in rapid atrial fibrillation on arrival with heart rate 128 bpm. He has no known
history of atrial fibrillation and is unsure how long he has been in this rhythm. He notes he has had episodes of confusion and difficulty with word finding recently and also has had episodes of weakness. He was given 5 mg of IV Lopressor and was
started on heparin drip given new rapid A-fib. Lab work revealed elevated troponin at 0.037 with elevated proBNP 2550. He also was noted to have TSH <0.02. Free T4 returned >6.99. Chest x-ray was negative. He is admitted for further workup and
evaluation of hyperthyroidism and rapid A-fib. Cardiology consulted for evaluation. He has no acute complaints at this time.
Progress Note - Prestressed Concrete Laborer
Subjective
Date of Service: November 17, 2023
Objective
Labs:
11/17/23 05:31
11/17/23 05:31
Labs
Hgb 10.8 g/dL (13.0-18.0) L 11/17/23 05:31
Hct 33.3 % (39.0-52.0) L 11/17/23 05:31
Plt Count 132 10^3/uL (130-400) 11/17/23 05:31
PT 17.8 Sec (11.4-14.6) H 11/07/23 22:00
INR 1.48 11/07/23 22:00
APTT 96.8 Sec (23.4-35.0) H 11/17/23 05:31
Sodium 136 mmol/L (135-145) 11/17/23 05:31
Potassium 3.8 mmol/L (3.5-5.1) 11/17/23 05:31
BUN 38 mg/dl (9-20) H 11/17/23 05:31
Creatinine 0.7 mg/dL (0.7-1.3) 11/17/23 05:31
Glucose 119 mg/dl (70-99) H 11/17/23 05:31
Vital Signs and I&O:
Vital Signs
Temp Pulse Resp BP Pulse Ox
98.5 F 82 18 115/55 98
11/17/23 03:13 11/17/23 08:49 11/17/23 05:16 11/17/23 08:49 11/17/23 03:13
Vital Signs
Temp Pulse Resp BP Pulse Ox
98.5 F 82 18 115/55 98
11/17/23 03:13 11/17/23 08:49 11/17/23 05:16 11/17/23 08:49 11/17/23 03:13
Intake & Output
11/15/23 11/16/23 11/17/23 11/18/23
06:59 06:59 06:59 06:59
Intake Total 2460 / 2460 1320 / 1320 1080 / 1080
Output Total 1525 / 1525 550 / 550 1175 / 1175
Balance 935 / 935 770 / 770 -95 / -95
Physical Exam
Physical Exam
GEN: No distress, awake, alert, oriented x3. cachectic
HEENT: anicteric, mmm
LUNGS: scattered rhonchi, no wheezes
CV: Irreg, S1/S2, no murmur
EXT: No cyanosis, clubbing. 1+ edema of B/L LE
NEURO: Gross non-focal
SKIN: Warm, dry. No rash
[2023-11-17 11:58] LABS: Glucose - Point of Care 104 mg/dl (70-99)
--- NOTE | 2023-11-17 14:48 | W.PN.UPDATE ---
Update Note
Progress Note Update
I reviewed with speech pathology, still at very high risk for aspiration. Will plan EGD with PEG tomorrow. I discussed risks and benefits at length. Will hold heparin tomorrow morning, Stephania on-call. Discussed with nursing to have nutrition recs
and home care in place.
--- NOTE | 2023-11-17 15:01 | PTOTSP ---
Video Swallow Study
Patient continues to present with mild oral and severe pharyngeal stages of swallowing. He continues with severe retention in the pharynx due to poor clearance through pharyngoesophageal segment. There has been minimal improvement in overall
swallowing function in regards to swallowing safety and efficiency. Aspiration risk/airway obstruction risk is elevated as is risk for reduced nutrition/hydration.
Recommend:
1. NPO - consider non-oral means
2. Medications via non-oral means
3. Oral care 3-5x daily with suctioning
4. Aspiration Risk Hydration Protocol - ice chips sips with supervision, after oral care, and use of intermittent cough
5. Dysphagia therapy for patient/family education in results of this study and to determine timing of repeat swallow study.
[2023-11-17] MEDS: LOPRESSOR TUBE ×2 (15:26→20:31)
[2023-11-17] MEDS: TAPAZOLE TUBE ×2 (16:04→20:31)
--- NOTE | 2023-11-17 16:31 | CM ---
EGD and Peg placement on 11/18/23. Therapy recommendation for HH. Referral to [facility] previously forwarded. This CM spoke with Ivy at [facility] ([phone]). Ivy will follow.
[2023-11-17] MEDS: D5/0.45%NSS with KCL 10 MEQ 1000 IV (16:34)
[2023-11-17 18:03] LABS: Glucose - Point of Care 113 mg/dl (70-99)
[2023-11-18] VITALS (10 sets, daily range): BP systolic 110–141; BP diastolic 49–65; BMI 21.6
[2023-11-18 00:20] LABS: Glucose - Point of Care 85 mg/dl (70-99)
[2023-11-18] MEDS: HEPARIN 25000 UNITS/250 ML IV (02:00)
--- NOTE | 2023-11-18 04:35 | PTCARENOTE ---
PTT 145.8- Heparin gtt on hold per protocol.
Patient scheduled for PEG placement at 1010- order for Heparin gtt hold at 0600.
[2023-11-18 05:26] LABS: Hematocrit 30.4 % (39.0-52.0); Hemoglobin 10.1 g/dL (13.0-18.0); Mean Corp Hgb Conc. 33.2 g/dL (33.0-37.0); Mean Corpuscular Hgb 27.1 pg (27.0-31.0); Mean Corpuscular Volume 81.5 fL (80.0-94.0); Mean Platelet Volume 11.9 fL (7.4-10.4); Platelet Count 126 10^3/uL (130-400); Red Blood Cell Count 3.73 10^6/uL (4.70-6.10); Red Cell Dist. Width 14.7 % (11.5-14.5); White Blood Cell Count 6.6 10^3/uL (4.8-10.8)
[2023-11-18 05:32] LABS: APTT 145.8 Sec (23.4-35.0)
[2023-11-18 05:48] LABS: Blood Urea Nitrogen 27 mg/dl (9-20); Carbon Dioxide 30 mmol/L (22-30); Chloride 100 mmol/L (98-107); Estimated Creatinine Clearance 107 ml/min; Glucose 99 mg/dl (70-99); Potassium 3.6 mmol/L (3.5-5.1); Sodium 133 mmol/L (135-145); eGFR > 60.00
[2023-11-18] MEDS: LOPRESSOR TUBE ×3 (05:53→15:58)
[2023-11-18 06:18] LABS: Glucose - Point of Care 80 mg/dl (70-99)
[2023-11-18] MEDS: D5/0.45%NSS with KCL 10 MEQ 1000 IV (07:35)
[2023-11-18] MEDS: NOVOLOG FLEXPEN-LOW RESISTANCE SC ×4 (07:39→17:53)
--- NOTE | 2023-11-18 08:15 | W.PN.HOSP.TC ---
Today's Communication/Plan
-
IV antibiotics. Peg placement today.
Assessment / Plan
Assessment / Plan
Gen-awake, alert, NAD
HEENT-NC, AT, anicteric, clear oral mm, NG tube in place
Neck-supple
CV-reg, no M, +S1/S2
Lungs-clear B/L
Abd-soft, NT, ND
Ext-pretibial edema bilaterally
Musculoskeletal-no cyanosis, clubbing
Skin-warm and dry. Rash
Neuro-grossly non-focal
Psych-calm, cooperative
A/P:
Severe dysphagia -strongly suspect due to thyrotoxicosis. Stopped tube feeds via NG tube today on 11/16. Speech therapy to reassess swallowing today on Friday. VSE abnormal so PEG placement today on 12/07. Discussed with GI.
On review of literature, thyrotoxicosis induced dysphagia can take on average 3 weeks to resolve. Family would like to take him home although most likely need skilled rehab. Case management for discharge disposition.
A Fib RVR -likely triggered by hyperthyroidism. New diagnosis of atrial fibrillation. Heart rate overall improving on metoprolol. Appreciate cardiology input. Continue IV heparin and changed to DOAC.
Hyperthyroidism -thyrotoxicosis due to missed doses of methimazole at home. Apparently he ran out and failed to refill it according to family. I touched base with endocrinology earlier (Dr. Love) and Dr Isaac spoke on 11/10. Continue
methimazole 20 mg 3 times daily. Consideration for radioactive iodine ablation versus surgery discussed with endocrinology. Will need decision as an outpatient.
Recheck thyroid labs on Thursday 11/16--> TSH less than 0.02, free T4 1.48 (prior was > 6.99), free T3 5.63 (prior was > 22.8).
Severe protein calorie malnutrition -currently getting tube feeds via NG tube as above. Watch for refeeding syndrome. Albumin 2.4
Subacute bronchitis -continue Acapella, discussed with patient, family, nurse.
Urinary retention -unknown acuity. Bladder scan this morning showed 600 cc, straight cath per protocol. If he fails, may need Dixon catheter. Ideally needs Flomax but he cannot swallow and we cannot crush this.
Enterococcus UTI-start IV ampicillin
rash, suspected fungal- IV Fluconazole x 1 then will reevaluate if needed through peg.
Elevated troponin -suspect acute nonischemic myocardial injury due to acute illness. Troponin trending down.
Hyperglycemia -suspect due to steroids as well as impaired fasting glucose. Hemoglobin A1c 5.8%. Completed 3 days of IV Solu-Medrol per neurology. Add low resistance sliding scale. Glucose improved, 124 this morning.
Hyponatremia -resolved.
Normocytic anemia -likely chronic. Outpatient follow-up.
Thrombocytopenia -suspect nonimmune thrombocytopenia related to heparin exposure. Monitor for now. Platelet count normal today on 11/16 is 132k.
Essential HTN -relative hypotension noted this morning. Held losartan and furosemide yesterday.
Suspected vascular dementia -brain MRI shows advanced leukoaraiosis, greater than expected for age. Chronic lacunar infarcts. Moderate to advanced atrophy. Outpatient follow-up recommended.
Full code
Total time spent on today's encounter was 52 minutes which included time spent in counseling the patient/family regarding diagnosis and treatment plan as listed above, goals of care, and symptom management. Case was discussed with nursing staff,
specialists, and care coordinators/case management. All labs and imaging personally reviewed by me. Remainder the time spent in detailed review of previous records, lab data, imaging, and other medical provider documentation.
Anticipated Discharge: 24 - 48 hours
Subjective/Interval History
-
Date of Service: November 18, 2023
Patient underwent PEG placement today. No new events.
Objective Data
-
Labs:
Laboratory Results
11/18/23
04:23
WBC 6.6
Hgb 10.1 L
Hct 30.4 L
Plt Count 126 L
APTT 145.8 H
Sodium 133 L
Potassium 3.6
Chloride 100
Carbon Dioxide 30
BUN 27 H
Creatinine 0.7
Glucose 99
Calcium 8.0 L
Vital Signs:
Vital Signs
Temp Pulse Resp BP Pulse Ox
98.1 F 93 18 117/65 96
11/18/23 07:38 11/18/23 07:38 11/18/23 07:38 11/18/23 07:38 11/18/23 07:38
I&O
11/17/23 11/18/23 11/19/23
06:59 06:59 06:59
Intake Total 1080 / 1080 1224 / 1224
Output Total 1175 / 1175 1700 / 1700
Balance -95 / -95 -476 / -476
[2023-11-18] MEDS: NSS 1000 IV (09:03)
[2023-11-18] MEDS: COZAAR TUBE (09:11)
[2023-11-18] MEDS: DESENEX/MITRAZOL/ZEASORB 1 APPLIC TOPICAL ×2 (09:11→21:03)
[2023-11-18] MEDS: TAPAZOLE TUBE (09:11)
[2023-11-18] MEDS: LASIX PO (09:11)
[2023-11-18] MEDS: NSS (PRESERVATIVE FREE) 10 ML IV (09:12)
[2023-11-18] MEDS: PROTONIX IV 40 MG IV (09:12)
--- NOTE | 2023-11-18 11:06 | W.IMMPOSTOP ---
Addendum entered and electronically signed by Mata Griffith MD 11/18/23 11:14:
[facility]#[id number]
Original Note:
Surgical Immed Post Op Note
-
Primary Surgeon: Nacho
Assisting Surgeon: Nav
Pre-op Diagnosis: Dysphagia
Post-op Diagnosis: Dysphgia
Procedure Performed: Percutaneous endoscopic gastrostomy tube (PEG)
Anesthesia Type: MAC/local
Specimen / Cultures: None
Estimated Blood Loss: < 1 cc
Complications: None
Operative Findings:
1. Normal appearing esophagus and stomach, mild retained bilious liquid
2. 20 Fr PEG inserted using standard pull technique
3. 1:1 palpation, transillumination, positive bubble study
4. Tube secured at 2.5 cm at the skin
--- NOTE | 2023-11-18 11:10 | W.PN.UPDATE ---
Update Note
Progress Note Update
EGD with PEG placement - see note for details.
- Please follow the post-PEG recommendations including: Nutrition consult for formula and volume, change dressing once per day, NPO x4 hrs then water today, check site for bleeding q 4 hrs and clean site with soap and water daily and dry thoroughly.
- Start tube feeds tomorrow
- Patient will need to keep the PEG in place for at least 6wks before removing it even if he is able to eat/drink normally by mouth.
- Primary to see his rash (likely fungal) and treat.
- Patient currently coughing post op, monitor vitals and clinical status.
[2023-11-18 12:27] LABS: Glucose - Point of Care 83 mg/dl (70-99)
--- NOTE | 2023-11-18 12:30 | PTCARENOTE ---
pt back from pacu. Npo from 12:30 to 16:30 ( 4 hr post peg tube) as per order. no s/s of distress noted. plan of care ongoing. see gi notes
--- NOTE | 2023-11-18 13:11 | W.PN.CARDCBS ---
Today's Communication / Plan
-
Now in sinus rhythm. Cont Lopressor via tube.
Pt for PEG November 18 2023.
Cont IV Heparin and transition to oral anticoagulation. Both Eliquis and Xarelto expensive per CM, but his daughter is a pharmacy informatics specialist and worked on cost, it will be $47/month.
Cont med tx of nonMI troponin. Peak Troponin 0.6.
Appears euvolemic. PO lasix restarted 11/15/23.
Reviewed with daughter at bedside.
Impression / Plan
-
PCP: EDDIE Gleason
Manufacturing Baker: None prior to arrival, initially seen by Dr. Nieves
Impression:
Presented with failure to thrive
Atrial fibrillation with RVR�newly diagnosed
Hyperthyroidism - uncontrolled
Confusion/weakness
Swallowing dysfunction
Medical noncompliance
Elevated troponin, suspected nonMI troponin
Loss of appetite
Hypertension
Lower extremity edema
Echo 09/01/2023: EF 55 to 60%, mild AI
Echo 11/10/2023: EF 50 to 55%, anteroseptum appears mildly hypokinetic
Plan:
-Presented with failure to thrive and noncompliance with medications. Uncontrolled hyperthyroidism noted on arrival with TSH < 0.02 and free T4 > 6.99.
-Noted to be in rapid Afib on arrival which was a new diagnosis of unknown duration and likely related to uncontrolled hyperthyroidism. He is now on methimazole 20mg TID.
Now in sinus rhythm. Cont Lopressor via tube.
Pt for PEG November 18 2023.
Cont IV Heparin and transition to oral anticoagulation. Both Eliquis and Xarelto expensive per CM, but his daughter is a pharmacy informatics specialist and worked on cost, it will be $47/month.
Cont med tx of nonMI troponin. Peak Troponin 0.6.
Appears euvolemic. PO lasix restarted 11/15/23.
Reviewed with daughter at bedside.
HPI: Elia is a 63-year-old male with past medical history of hypertension, extremity edema, and hyperthyroidism who presented to ER after being urged by his family. He reportedly has had no appetite for the past 2 weeks and has not been
eating or drinking or taking his medications. He denies any specific complaints, however does note some occasional dizziness at times. In ER, he was found to be in rapid atrial fibrillation on arrival with heart rate 128 bpm. He has no known
history of atrial fibrillation and is unsure how long he has been in this rhythm. He notes he has had episodes of confusion and difficulty with word finding recently and also has had episodes of weakness. He was given 5 mg of IV Lopressor and was
started on heparin drip given new rapid A-fib. Lab work revealed elevated troponin at 0.037 with elevated proBNP 2550. He also was noted to have TSH <0.02. Free T4 returned >6.99. Chest x-ray was negative. He is admitted for further workup and
evaluation of hyperthyroidism and rapid A-fib. Cardiology consulted for evaluation. He has no acute complaints at this time.
Progress Note - Manufacturing Baker
Subjective
Date of Service: November 18, 2023
Pt seen and examined. No cp or dyspnea.
Objective
Labs:
11/18/23 04:23
11/18/23 04:23
Labs
Hgb 10.1 g/dL (13.0-18.0) L 11/18/23 04:23
Hct 30.4 % (39.0-52.0) L 11/18/23 04:23
Plt Count 126 10^3/uL (130-400) L 11/18/23 04:23
PT 17.8 Sec (11.4-14.6) H 11/07/23 22:00
INR 1.48 11/07/23 22:00
APTT 145.8 Sec (23.4-35.0) H 11/18/23 04:23
Sodium 133 mmol/L (135-145) L 11/18/23 04:23
Potassium 3.6 mmol/L (3.5-5.1) 11/18/23 04:23
BUN 27 mg/dl (9-20) H 11/18/23 04:23
Creatinine 0.7 mg/dL (0.7-1.3) 11/18/23 04:23
Glucose 99 mg/dl (70-99) 11/18/23 04:23
Vital Signs and I&O:
Vital Signs
Temp Pulse Resp BP Pulse Ox
97.9 F 84 18 123/63 96
11/18/23 12:20 11/18/23 12:20 11/18/23 12:20 11/18/23 12:20 11/18/23 12:20
Vital Signs
Temp Pulse Resp BP Pulse Ox
97.9 F 84 18 123/63 96
11/18/23 12:20 11/18/23 12:20 11/18/23 12:20 11/18/23 12:20 11/18/23 12:20
Intake & Output
11/16/23 11/17/23 11/18/23 11/19/23
06:59 06:59 06:59 06:59
Intake Total 1320 / 1320 1080 / 1080 1224 / 1224
Output Total 550 / 550 1175 / 1175 1700 / 1700
Balance 770 / 770 -95 / -95 -476 / -476
Physical Exam
Physical Exam
General: No acute distress, Awake, cachectic
Neck: Negative JVD
Heart: Regular, Negative S3 positive S1/S2, Negative S4, No murmur
Lungs: CTA b/l, negative wheezes/rales/rhonchi
Abd: Positive BS, NT/ND, neg rebound/rigidity/guarding
Ext: Negative cyanosis/clubbing/edema
Neuro: nonfocal
--- NOTE | 2023-11-18 13:19 | PTCARENOTE ---
Assess patient abdomen and found that he has a redness around his umbilicus with brown drainage and odor. Patient denies any pain. Clarify with primary nurse to clean it with normal saline and gauzes, barrier cream applied to umbilicus area. All of
these action was done under observation of GI doctor, Dr. Chopra. No further order at this time.
[2023-11-18] MEDS: AMPICILLIN 108 MG IV ×2 (14:01→21:02)
--- NOTE | 2023-11-18 15:05 | PTCARENOTE ---
As per AMANDA Chopra pt npo for 4 hrs post procedure, then ok for water and meds after that.
--- NOTE | 2023-11-18 15:19 | CM ---
Addendum entered by Michelle Hodge 11/20/23 11:23:
HH agency has changed from [facility] to . [facility] was not able to provide nurses for education on Bolus feeds on day of discharge, 11/20/23. [facility] were able to provide staff.
Original Note:
Peg insertion today. Discharge Plan of Care: Family wants home with [facility] for VN and PT/OT and family assistance. Fritz accepted and Ivy from [facility] ([phone]) is following. Family will need education and training on Peg feeds.
[2023-11-18] MEDS: TAPAZOLE 20 MG TUBE ×2 (16:47→22:05)
[2023-11-18] MEDS: DIFLUCAN 200 MG 50 MG IV (17:02)
[2023-11-18 17:55] LABS: Glucose - Point of Care 73 mg/dl (70-99)
[2023-11-18] MEDS: FLOMAX 0.400000000000000022 MG PO (22:05)
[2023-11-18] MEDS: LOPRESSOR 50 MG TUBE (22:06)
[2023-11-19] VITALS (9 sets, daily range): BP systolic 115–139; BP diastolic 51–94; PULSE 82–118; BMI 22.0
[2023-11-19 00:18] LABS: Glucose - Point of Care 75 mg/dl (70-99)
[2023-11-19] MEDS: NOVOLOG FLEXPEN-LOW RESISTANCE SC ×4 (00:18→18:55)
[2023-11-19] MEDS: AMPICILLIN 108 MG IV (02:41)
[2023-11-19] MEDS: NSS 1000 IV (04:37)
[2023-11-19 06:02] LABS: % Basophils 0.2 % (0-2); % Immature Granulocytes 1.1 % (0-0.5); % Lymphocytes 15.2 % (20.5-51.1); % Monocytes 6.9 % (1.7-9.3); % Neutrophils 75.6 % (42.2-75.2); Absolute Eosinophils 0.1 10^3/uL (0-0.7); Absolute Immature Granulocytes 0.1 10^3/uL (0-0.05); Absolute Monocytes 0.4 10^3/uL (0.1-0.6); Absolute Neutrophils 4.7 10^3/uL (1.4-6.5); Hematocrit 29.8 % (39.0-52.0); Hemoglobin 9.7 g/dL (13.0-18.0); Mean Corp Hgb Conc. 32.6 g/dL (33.0-37.0); Mean Corpuscular Hgb 26.9 pg (27.0-31.0); Mean Corpuscular Volume 82.8 fL (80.0-94.0); Mean Platelet Volume 11.2 fL (7.4-10.4); Nucleated Red Blood Cells % 0 % (-); Platelet Count 155 10^3/uL (130-400); Red Cell Dist. Width 14.8 % (11.5-14.5); White Blood Cell Count 6.2 10^3/uL (4.8-10.8)
[2023-11-19] MEDS: LOPRESSOR 50 MG TUBE ×3 (06:03→22:41)
[2023-11-19 06:23] LABS: Blood Urea Nitrogen 19 mg/dl (9-20); Calcium 8.1 mg/dl (8.4-10.2); Carbon Dioxide 24 mmol/L (22-30); Chloride 104 mmol/L (98-107); Estimated Creatinine Clearance 109 ml/min; Glucose 60 mg/dl (70-99); Potassium 3.8 mmol/L (3.5-5.1); Sodium 134 mmol/L (135-145); eGFR > 60.00
[2023-11-19 06:59] LABS: Glucose - Point of Care 68 mg/dl (70-99)
[2023-11-19] MEDS: DEXTROSE 50% SYRINGE 12.5 GRAMS IV (07:11)
[2023-11-19 07:38] LABS: Glucose - Point of Care 118 mg/dl (70-99)
--- NOTE | 2023-11-19 08:02 | W.PN.GI.CBS2 ---
Addendum entered and electronically signed by Esther Chopra DO 11/19/23 10:45:
Patient seen and examined independently of [facility]. I agree with the note with my additions below
PEG site looks good. He will follow-up with Lesvia Roper at 1230 on 11/26 for PEG check
Ideally patient needs repeat speech evaluation in a couple of weeks to determine if he is okay for oral intake
Patient is aware the PEG tube cannot be pulled for at least 6 weeks
ok for resumption of A/C if necessary
ok to discharge from GI perspective
start tube feeds
Original Note:
Today's Communication / Plan
-
s/p peg 11/17 - site intact no redness or drainage
restart tube feeds this am
nutrition for bolus feed goal
reviewed basic care with family and added to instruction
11/26 follow up with Lesvia Roper at 12:30 for peg check next week-- reviewed with family
cont to treat correct thyroid dysfunction per medical team as reviewed with endocrine assist with plan for continued Methimazole then OP endocrine follow up
discharge planning for home set up for VNA and tube feeds
hbg stable on heparin gtt/oral anticoagulation management per hospitalist to resume today
updated family at bedside
Assessment / Plan
-
Pt is a 63yo with hx HTN, hyperthyroidism on methimazole but not taking correctily prior to admission, LE enema noted with failure to thrive. On admission noted with Afib with RVR and marked thyroid abnormality with failure to thrive and asked to
evaluate. Pt also noted with mild hyponatremia, elevated troponin, elevated bilirubin 2.2, alk phos 150.
-failure to thrive
-failed VSE with mild oral and severe pharyngeal dysphagia and severe retention in the pharynx due to poor pharyngoesophageal segment opening with placement of NGT 11/09. Repeat VSE mild oral and severe pharyngeal stages of swallowing. peg placed
11/17
-severe calorie malnutrition
-dysphagia
-diarrhea - resolved
-mild bili and alk phos elevation- resolved
-tachycardia - resolved
-afib with RVR on heparin gtt
-hx hyperthyroidism off medication prior to admission with marked thyroid dysfunction on admission with TSH <0.02, T4 6.99, T3 >22.8
-wt loss
-mild anemia
-urinary retention
-mild bili and alk phos elevation
-hyponatremia
-increased troponin
-hypoalbuminemia
-hyperglycemia with steroid and tube feed use
other medical problems:
HTN
Peripheral edema
PLAN:
s/p peg 11/17 - site intact no redness or drainage
restart tube feeds this am
nutrition for bolus feed goal
reviewed basic care with family and added to instruction
11/26 follow up with Lesvia Roper at 12:30 for peg check next week-- reviewed with family
cont to treat correct thyroid dysfunction per medical team as reviewed with endocrine assist with plan for continued Methimazole then OP endocrine follow up
discharge planning for home set up for VNA and tube feeds
hbg stable on heparin gtt/oral anticoagulation management per hospitalist to resume today
Subjective
Subjective
Date of Service: November 19, 2023
11/16 brown formed stools, NPO post peg
Objective
Data Reviewed
Laboratory Data:
Laboratory Results
11/19/23 05:24
11/19/23 05:24
Laboratory Results
PT 17.8 Sec (11.4-14.6) H 11/07/23 22:00
INR 1.48 11/07/23 22:00
APTT 145.8 Sec (23.4-35.0) H 11/18/23 04:23
Phosphorus 3.7 mg/dl (2.5-4.5) 11/17/23 05:31
Magnesium 1.9 mg/dl (1.6-2.3) 11/17/23 05:31
Total Bilirubin 0.9 mg/dl (0.2-1.3) 11/17/23 05:31
AST 21 U/L (17-59) 11/17/23 05:31
ALT 48 U/L (0-50) 11/17/23 05:31
Alkaline Phosphatase 98 U/L (38-126) 11/17/23 05:31
Vital Signs and I&O:
Vital Signs
Temp Pulse Resp BP Pulse Ox
98 F 78 12 118/52 99
11/19/23 07:20 11/19/23 07:20 11/19/23 07:20 11/19/23 07:20 11/19/23 07:20
I&O
11/18/23 11/19/23 11/20/23
06:59 06:59 06:59
Intake Total 1224 / 1224 1416 / 1416
Output Total 1700 / 1700 400 / 400
Balance -476 / -476 1016 / 1016
Physical Exam
Physical Exam
HEENT: Anicteric and Moist mucous membranes
Cardiology: Normal Sinus Rhythm
Pulmonary: Clear
GI: Soft, Non Distended, Tender (minimal tenderness around tube ) and Other (peg intact without redness, swelling or pain )
Extremities: No Edema
Neuro: Other (thick speech with slow improvement )
--- NOTE | 2023-11-19 09:38 | W.PN.CARDCBS ---
Today's Communication / Plan
-
Continue beta-camilla, Eliquis and low-dose Lasix
Stable cardiac status, we will sign off, please recall as needed
Impression / Plan
-
PCP: EDDIE Gleason
Group Billing Coordinator: None prior to arrival, initially seen by Dr. Nieves
Impression:
Presented with failure to thrive
Atrial fibrillation with RVR�newly diagnosed
Hyperthyroidism - uncontrolled
Confusion/weakness
Swallowing dysfunction
Medical noncompliance
Elevated troponin, suspected nonMI troponin
Loss of appetite
Hypertension
Lower extremity edema
Echo 09/01/2023: EF 55 to 60%, mild AI
Echo 11/10/2023: EF 50 to 55%, anteroseptum appears mildly hypokinetic
Plan:
-Presented with failure to thrive and noncompliance with medications. Uncontrolled hyperthyroidism noted on arrival with TSH < 0.02 and free T4 > 6.99.
-Noted to be in rapid Afib on arrival which was a new diagnosis of unknown duration and likely related to uncontrolled hyperthyroidism. He is now on methimazole 20mg TID.
Now in sinus rhythm. Cont Lopressor via tube.
s/p PEG
Transitioned from IV Heparin and transition to oral anticoagulation. Both Eliquis and Xarelto expensive per CM, but his daughter is a pharmacy order entry technician and worked on cost, it will be $47/month.
Cont med tx of nonMI troponin. Peak Troponin 0.6.
Appears euvolemic. PO lasix restarted 11/15/23.
Reviewed with daughters at bedside.
We will sign off, please recall as needed
HPI: Elia is a 63-year-old male with past medical history of hypertension, extremity edema, and hyperthyroidism who presented to ER after being urged by his family. He reportedly has had no appetite for the past 2 weeks and has not been
eating or drinking or taking his medications. He denies any specific complaints, however does note some occasional dizziness at times. In ER, he was found to be in rapid atrial fibrillation on arrival with heart rate 128 bpm. He has no known
history of atrial fibrillation and is unsure how long he has been in this rhythm. He notes he has had episodes of confusion and difficulty with word finding recently and also has had episodes of weakness. He was given 5 mg of IV Lopressor and was
started on heparin drip given new rapid A-fib. Lab work revealed elevated troponin at 0.037 with elevated proBNP 2550. He also was noted to have TSH <0.02. Free T4 returned >6.99. Chest x-ray was negative. He is admitted for further workup and
evaluation of hyperthyroidism and rapid A-fib. Cardiology consulted for evaluation. He has no acute complaints at this time.
Progress Note - Group Billing Coordinator
Subjective
Date of Service: November 19, 2023
NAOE. Resting comfortably in bed. S/p PEG tube yesterday.
Objective
Labs:
11/19/23 05:24
11/19/23 05:24
Labs
Hgb 9.7 g/dL (13.0-18.0) L 11/19/23 05:24
Hct 29.8 % (39.0-52.0) L 11/19/23 05:24
Plt Count 155 10^3/uL (130-400) D 11/19/23 05:24
PT 17.8 Sec (11.4-14.6) H 11/07/23 22:00
INR 1.48 11/07/23 22:00
APTT 145.8 Sec (23.4-35.0) H 11/18/23 04:23
Sodium 134 mmol/L (135-145) L 11/19/23 05:24
Potassium 3.8 mmol/L (3.5-5.1) 11/19/23 05:24
BUN 19 mg/dl (9-20) 11/19/23 05:24
Creatinine 0.7 mg/dL (0.7-1.3) 11/19/23 05:24
Glucose 60 mg/dl (70-99) L 11/19/23 05:24
Vital Signs and I&O:
Vital Signs
Temp Pulse Resp BP Pulse Ox
98 F 78 12 118/52 99
11/19/23 07:20 11/19/23 07:20 11/19/23 07:20 11/19/23 07:20 11/19/23 07:20
Vital Signs
Temp Pulse Resp BP Pulse Ox
98 F 78 12 118/52 99
11/19/23 07:20 11/19/23 07:20 11/19/23 07:20 11/19/23 07:20 11/19/23 07:20
Intake & Output
11/17/23 11/18/23 11/19/23 11/20/23
06:59 06:59 06:59 06:59
Intake Total 1080 / 1080 1224 / 1224 1416 / 1416
Output Total 1175 / 1175 1700 / 1700 400 / 400
Balance -95 / -95 -476 / -476 1016 / 1016
Physical Exam
Physical Exam
Gen: NAD, AA
HEENT: NC/AT, sclera anicteric
Neck: No JVD
CV: RRR, NL s1/s2
Lungs: CTAB
Abd: s/p PEG
Ext: Nonpitting LE edema with brawny skin chnages
Skin: Warm, dry
Neuro: Non-focal
[2023-11-19] MEDS: ELIQUIS 5 MG TUBE ×2 (09:41→20:57)
[2023-11-19] MEDS: TAPAZOLE 20 MG TUBE ×3 (09:41→22:41)
[2023-11-19] MEDS: COZAAR 50 MG TUBE (09:42)
[2023-11-19] MEDS: PROTONIX IV 40 MG IV (09:42)
[2023-11-19] MEDS: NSS (PRESERVATIVE FREE) 10 ML IV (09:42)
[2023-11-19] MEDS: DESENEX/MITRAZOL/ZEASORB 1 APPLIC TOPICAL ×2 (09:43→20:57)
--- NOTE | 2023-11-19 10:12 | W.PN.HOSP.TC ---
Today's Communication/Plan
-
TF. Abx. Discharge planning in progress for possible today.
Assessment / Plan
Assessment / Plan
Gen-awake, alert, NAD
HEENT-NC, AT, anicteric, clear oral mm
Neck-supple
CV-reg, no M, +S1/S2
Lungs-clear B/L
Abd-soft, NT, ND. PEG in place
Ext-pretibial edema bilaterally
Musculoskeletal-no cyanosis, clubbing
Skin-warm and dry. Rash improved
Neuro-grossly non-focal
Psych-calm, cooperative
A/P:
Severe dysphagia -strongly suspect due to thyrotoxicosis. Stopped tube feeds via NG tube on 11/16. VSE abnormal so PEG placement on 12/07. Discussed with GI.
On review of literature, thyrotoxicosis induced dysphagia can take on average 3 weeks to resolve. Discussed with family at bedside today. Family would like to take him home.
A Fib RVR -likely triggered by hyperthyroidism. New diagnosis of atrial fibrillation. Heart rate overall improving on metoprolol. Appreciate cardiology input. Changed to DOAC.
Hyperthyroidism -thyrotoxicosis due to missed doses of methimazole at home. Apparently he ran out and failed to refill it according to family. I touched base with endocrinology earlier (Dr. Love) and Dr Isaac spoke on 11/10. Continue
methimazole 20 mg 3 times daily. Consideration for radioactive iodine ablation versus surgery discussed with endocrinology. Will need decision as an outpatient.
Recheck thyroid labs on Thursday 11/16--> TSH less than 0.02, free T4 1.48 (prior was > 6.99), free T3 5.63 (prior was > 22.8).
Severe protein calorie malnutrition -currently getting tube feeds via NG tube as above. Watch for refeeding syndrome. Albumin 2.4
Subacute bronchitis -continue Acapella, discussed with patient, family, nurse.
Urinary retention -unknown acuity. Bladder scan this morning showed 600 cc, straight cath per protocol. If he fails, may need Dixon catheter. Ideally needs Flomax but he cannot swallow and we cannot crush this.
Enterococcus UTI-start IV ampicillin-->change to Augmentin today
rash, suspected fungal- IV Fluconazole x 1 then will reevaluate if needed through peg.
Elevated troponin -suspect acute nonischemic myocardial injury due to acute illness. Troponin trending down.
Hyperglycemia -suspect due to steroids as well as impaired fasting glucose. Hemoglobin A1c 5.8%. Completed 3 days of IV Solu-Medrol per neurology. Add low resistance sliding scale. Glucose improved, 124 this morning.
Hyponatremia -resolved.
Normocytic anemia -likely chronic. Outpatient follow-up.
Thrombocytopenia -suspect nonimmune thrombocytopenia related to heparin exposure. Monitor for now. Platelet count normal today on 11/16 is 132k.
Essential HTN -relative hypotension noted this morning. Held losartan and furosemide yesterday.
Suspected vascular dementia -brain MRI shows advanced leukoaraiosis, greater than expected for age. Chronic lacunar infarcts. Moderate to advanced atrophy. Outpatient follow-up recommended.
Full code
Anticipated Discharge: Today
Subjective/Interval History
-
Date of Service: November 19, 2023
No new complaints. PEG functioning well.
Objective Data
-
Labs:
Laboratory Results
11/19/23
05:24
WBC 6.2
Hgb 9.7 L
Hct 29.8 L
Plt Count 155 D
Sodium 134 L
Potassium 3.8
Chloride 104
Carbon Dioxide 24
BUN 19
Creatinine 0.7
Glucose 60 L
Calcium 8.1 L
Vital Signs:
Vital Signs
Temp Pulse Resp BP Pulse Ox
98 F 78 12 118/52 99
11/19/23 07:20 11/19/23 09:42 11/19/23 07:20 11/19/23 09:42 11/19/23 07:20
I&O
11/18/23 11/19/23 11/20/23
06:59 06:59 06:59
Intake Total 1224 / 1224 1416 / 1416
Output Total 1700 / 1700 400 / 400
Balance -476 / -476 1016 / 1016
--- NOTE | 2023-11-19 10:45 | W.PN.UPDATE ---
Update Note
Progress Note Update
For billing purposes
[2023-11-19] MEDS: AMPICILLIN IV (10:48)
[2023-11-19] MEDS: LASIX 40 MG PO (10:49)
[2023-11-19] MEDS: AUGMENTIN 250 MG/5 ML 500 MG PO ×2 (10:49→17:31)
[2023-11-19 12:44] LABS: Glucose - Point of Care 72 mg/dl (70-99)
--- NOTE | 2023-11-19 15:59 | VNURNOTE ---
Home Health Liaison met with patient and 2 daughters Daniela and Temitope at 1515 to discuss VN nurse/therapy, visits, schedule and homebound status. Patient is agreeable and understands that visits at home will be 2-3 x per week to assess and teach
medical management and new tube feedings/PEG tube care.
VN brochure provided with contact information. Patient is aware that [facility] will contact him for start of care after discharge from .
[facility] referral completed in Care Port.
Liaison discussed with coordination for feeding supplies and requested patient discharge by 1100 on day of discharge in order for VN to have same day visit.
Family is considering hospital bed but patient is not interested. Liaison will follow up.
Liaison looked into [employer]ge [employer] as requested by daughter and 2 DME companies stated that they are not covered by insurance.
[2023-11-19 18:33] LABS: Glucose - Point of Care 99 mg/dl (70-99)
[2023-11-19] MEDS: FLOMAX 0.400000000000000022 MG PO (22:41)
[2023-11-20 00:05] LABS: Glucose - Point of Care 113 mg/dl (70-99)
[2023-11-20] MEDS: NOVOLOG FLEXPEN-LOW RESISTANCE SC ×2 (00:11→09:18)
[2023-11-20] MEDS: AUGMENTIN 250 MG/5 ML 500 MG TUBE ×2 (02:10→10:50)
[2023-11-20] MEDS: AUGMENTIN 250 MG/5 ML PO (02:15)
[2023-11-20 03:20] VITALS: BP 128/48
[2023-11-20 04:59] LABS: Hemoglobin 9.3 g/dL (13.0-18.0); Mean Corp Hgb Conc. 33.2 g/dL (33.0-37.0); Mean Corpuscular Hgb 26.6 pg (27.0-31.0); Mean Platelet Volume 10.6 fL (7.4-10.4); Platelet Count 176 10^3/uL (130-400); Red Cell Dist. Width 14.8 % (11.5-14.5); White Blood Cell Count 6.2 10^3/uL (4.8-10.8)
[2023-11-20 05:30] LABS: Blood Urea Nitrogen 15 mg/dl (9-20); Calcium 7.8 mg/dl (8.4-10.2); Carbon Dioxide 28 mmol/L (22-30); Chloride 97 mmol/L (98-107); Estimated Creatinine Clearance > 125 ml/min; Glucose 122 mg/dl (70-99); Potassium 3.3 mmol/L (3.5-5.1); Sodium 131 mmol/L (135-145); eGFR > 60.00
[2023-11-20 05:39] VITALS: BMI 22.5
[2023-11-20] MEDS: LOPRESSOR 50 MG TUBE (05:44)
[2023-11-20 06:27] LABS: Glucose - Point of Care 144 mg/dl (70-99)
[2023-11-20 08:02] VITALS: BP 121/54
--- NOTE | 2023-11-20 08:05 | W.PN.HOSP.TC ---
Today's Communication/Plan
-
Discharge planning today.
Assessment / Plan
Assessment / Plan
Gen-awake, alert, NAD
HEENT-NC, AT, anicteric, clear oral mm
Neck-supple
CV-reg, no M, +S1/S2
Lungs-clear B/L
Abd-soft, NT, ND. PEG in place
Ext-pretibial edema bilaterally
Musculoskeletal-no cyanosis, clubbing
Skin-warm and dry. Rash improved
Neuro-grossly non-focal
Psych-calm, cooperative
A/P:
Severe dysphagia -strongly suspect due to thyrotoxicosis. Stopped tube feeds via NG tube on 11/16. VSE abnormal so PEG placement on 12/07. Discussed with GI.
On review of literature, thyrotoxicosis induced dysphagia can take on average 3 weeks to resolve. Discussed with family at bedside today. Family would like to take him home. Plan to discharge today
A Fib RVR -likely triggered by hyperthyroidism. New diagnosis of atrial fibrillation. Heart rate overall improving on metoprolol. Appreciate cardiology input. Changed to DOAC.
Hyperthyroidism -thyrotoxicosis due to missed doses of methimazole at home. Apparently he ran out and failed to refill it according to family. I touched base with endocrinology earlier (Dr. Love) and Dr Isaac spoke on 11/10. Continue
methimazole 20 mg 3 times daily. Consideration for radioactive iodine ablation versus surgery discussed with endocrinology. Will need decision as an outpatient.
Recheck thyroid labs on Thursday 11/16--> TSH less than 0.02, free T4 1.48 (prior was > 6.99), free T3 5.63 (prior was > 22.8).
Severe protein calorie malnutrition -currently getting tube feeds via NG tube as above. Watch for refeeding syndrome. Albumin 2.4
Subacute bronchitis -continue Acapella, discussed with patient, family, nurse.
Urinary retention -unknown acuity. Bladder scan this morning showed 600 cc, straight cath per protocol. If he fails, may need Dixon catheter. Ideally needs Flomax but he cannot swallow and we cannot crush this.
Enterococcus UTI-start IV ampicillin-->changed to Augmentin yesterday
rash, suspected fungal- IV Fluconazole x 1 then will reevaluate if needed through peg.
Elevated troponin -suspect acute nonischemic myocardial injury due to acute illness. Troponin trending down.
Hyperglycemia -suspect due to steroids as well as impaired fasting glucose. Hemoglobin A1c 5.8%. Completed 3 days of IV Solu-Medrol per neurology. Add low resistance sliding scale. Glucose improved, 124 this morning.
Hyponatremia -resolved.
Normocytic anemia -likely chronic. Outpatient follow-up.
Thrombocytopenia -suspect nonimmune thrombocytopenia related to heparin exposure. Monitor for now. Platelet count normal today on 11/16 is 132k.
Essential HTN -relative hypotension noted this morning. Held losartan and furosemide yesterday.
Suspected vascular dementia -brain MRI shows advanced leukoaraiosis, greater than expected for age. Chronic lacunar infarcts. Moderate to advanced atrophy. Outpatient follow-up recommended.
Full code
Anticipated Discharge: Today
Subjective/Interval History
-
Date of Service: November 20, 2023
No new complaints. Patient doing well overall.
Objective Data
-
Labs:
Laboratory Results
11/20/23
04:36
WBC 6.2
Hgb 9.3 L
Hct 28.0 L
Plt Count 176
Sodium 131 L
Potassium 3.3 L
Chloride 97 L
Carbon Dioxide 28
BUN 15
Creatinine 0.6 L
Glucose 122 H
Calcium 7.8 L
Vital Signs:
Vital Signs
Temp Pulse Resp BP Pulse Ox
98.2 F 66 18 121/54 98
11/20/23 08:02 11/20/23 08:02 11/20/23 08:02 11/20/23 08:02 11/20/23 08:02
I&O
11/19/23 11/20/23 11/21/23
06:59 06:59 06:59
Intake Total 1416 / 1416 650 / 650
Output Total 400 / 400 1230 / 1230
Balance 1016 / 1016 -580 / -580
[2023-11-20] MEDS: KCL ELIXIR 40 MEQ TUBE (08:56)
--- NOTE | 2023-11-20 09:41 | VNURNOTE ---
Call to patient's daughter Daniela to discuss plan.
Daniela does not think hospital bed will fit through hallway and for now she has decided to purchase wedge pillow for HOB elevation.
Liaison spoke to SAIDA, who is coordinating tube feeding supplies, walker and bedside commode.
Patient's daughter Daniela stated that Fritz had texted earlier this am. Call to Fritz now to cancel as [facility] has accepted patient on service.
[2023-11-20] MEDS: ELIQUIS 5 MG TUBE (09:43)
[2023-11-20] MEDS: COZAAR 50 MG TUBE (09:44)
[2023-11-20] MEDS: DESENEX/MITRAZOL/ZEASORB 1 APPLIC TOPICAL (09:46)
[2023-11-20] MEDS: NSS (PRESERVATIVE FREE) 10 ML IV (09:48)
[2023-11-20] MEDS: PROTONIX IV 40 MG IV (09:49)
[2023-11-20] MEDS: LASIX 40 MG PO (09:50)
[2023-11-20] MEDS: TAPAZOLE 20 MG TUBE (09:53)
[2023-11-20] MEDS: FLUSH (NSS) 2 FLUSH IV (09:53)
--- NOTE | 2023-11-20 09:55 | W.DCSUMMARY ---
Discharge Summary
Discharge Data
Date of Admission: 11/07/23
Date of Discharge: 11/20/23
-
Pending Results: No
Hospital Course
Patient 63 years old male history of hyperthyroidism who had not been taking his medications for quite a while presented to the hospital with multiple complaints including failure to thrive, weight loss, dysphagia, decreased appetite, lower
extremity edema, generalized malaise. Patient's course complicated with multiple issues as described below.
His main issue was felt to be hyperthyroidism related. His outpatient design engineer agricultural equipment was contacted. He was placed on increased doses of methimazole and consideration for radioactive iodine ablation versus surgery as outpatient and follow-up
thyroid function test as outpatient as well with close follow-up with design engineer agricultural equipment given his significant presentation during this hospital stay. He was given IV steroids during this hospital stay for short course. His TSH upon admission was
less than 0.02 and free T4 more than 6.99 and free T3 more than 22.8. Follow-up free T4 was 1.48, free T3 was 5.63. As mentioned he will need follow-up with endocrinology as outpatient.
Patient was also seen by neurology and workup for myasthenia gravis was undertaken and pending while he was started on short course of high doses of IV steroids. MRI of the brain did not show any acute infarct but chronic lacunar infarct severe
ischemic small vessel disease. There are some concerns of vascular related dementia or cognitive deficits. He will need follow-up with neurology as outpatient.
He was found in atrial fibrillation rapid ventricular response. Cardiology consulted. He was placed on rate control agent and anticoagulation. He also had elevated troponin due to non-ischemic myocardial injury. He had an echocardiogram show EF
60 to 65%, mild AR, normal left ventricular wall thickness, anterior septum appeared mildly hypokinetic. He was diuresed with IV Lasix. Ultimately he was able to tolerate beta-camilla with Lopressor, anticoagulation with Eliquis, and Diuretics
with Furosemide. Overall he did well from cardiac perspective and he remained in normal sinus rhythm and euvolemic. Cardiology cleared him for discharge.
Patient had severe dysphagia. He was also significant malnourished. GI consulted. He had upper endoscopy that showed no endoscopic esophageal abnormalities, erythematous mucosa in the antrum, normal examined duodenum, and a PEG was placed.
Patient was able to tolerate tube feedings without any complications. GI also cleared him for discharge.
He had Enterococcus urinary tract infection. He was treated with IV ampicillin that was later on switched to Augmentin. He had remained afebrile and hemodynamically stable.
Discharge duration: 37 minutes
Discharge Plan
-
Patient Disposition: Home with Home Care
Discharge Diagnosis/Procedures: Severe hyperthyroidism. Atrial fibrillation rapid ventricular response, new onset. Severe protein calorie malnutrition. Severe dysphagia requiring percutaneous feeding tube. Enterococcus urinary tract infection.
Probable vascular dementia or cognitive deficits.
Diet: Other diet
Additional Diets: 6 cans a day of Jevity 1.5--> 2 cans bolus 3 times daily, 175 mL free water before and after each bolus.
Activity: As tolerated
Blood Work: Please PCP to order CBC, BMP within 1 week. Also, PCP and design engineer agricultural equipment to recheck thyroid function tests in 6 weeks.
Wound Care: clean peg tube daily with warm water. Patient can shower and allow water to run over tube. Do not take bath or swim with tube. Small amount of drainage around tube is normal. Can use 1 drainage pad around tube as needed for any
drainage. Tube tube daily. Call GI with any redness, swelling or pain . If tube falls out go to ER As soon as possible. Call with any other questions or problems. Can use Liquid Tylenol 650mg every 6 hours as needed for pain
around tube.
Specialty Instructions: Weigh Daily- Call MD for wt gain/loss 3 lbs overnight/5 lbs in 1 week
Referrals:
Bryan Power MD [Consulting Staff] - in one to two weeks
Lesvia Roper CRNP [Specified Professional Personl] - 11/27/23 12:30 pm (Please call to reschedule if you can not keep this appointment. If your insurance requires a referral please contact your primary care physician prior to your appointment. )
Yolette,January, SKIN PILER [Family Provider] - in less than 1 week
Reji Nieves DO [Active] - 12/15/23 11:20 am (You have a cardiology follow-up appointment at the [place] office. Please call with questions)
Prescriptions:
New
losartan 50 mg Tablet
50 mg feeding tube DAILY 30 Days Qty: 30 0RF
furosemide 40 mg Tablet
40 mg feeding tube DAILY 30 Days Qty: 30 0RF
amoxicillin-pot clavulanate 250-62.5 mg/5 mL Suspension For Reconstitution
10 ml feeding tube Q8H 5 Days Qty: 150 0RF
metoprolol tartrate 50 mg Tablet
50 mg feeding tube Q8@0600,1400,2200 30 Days Qty: 90 0RF
methimazole 5 mg Tablet
20 mg feeding tube TID 30 Days Qty: 360 0RF
Eliquis 5 mg Tablet
5 mg feeding tube BID 30 Days Qty: 60 0RF
Discontinued
losartan 50 mg tablet
50 mg PO DAILY
furosemide 40 mg tablet
40 mg PO DAILY
methimazole 10 mg tablet
10 mg PO DAILY
Discharge Orders:
Discharge Patient (As Directed); Ordered 11/20/23
Ordered By: Viktor Mccartney
Discharge Date and Time
Discharge Date/Time: 11/20/23 11:40
Print Language: SPANISH
--- NOTE | 2023-11-20 11:16 | CM ---
Patient has been medically cleared for discharge to home with [facility] VN, PT/OT services. [employer] is to deliver Jevity 1.5 cans and administration syringes to home. VN will meet patient and daughters at home at educate them on Jevity Bolus
administration. Patient has been given a RW. Daughters transported home.
== END 2023-11-20 11:40 | disposition home health service (06) | DRG 643 ==
LOC: 2 NORTH 17:29
PROVIDERS: Emergency Medicine; Hospitalist; Internal Medicine; Nuclear Medicine Nuclear Cardiology; Nurse Practitioner; Nurse Practitioner Family; Nurse Practitioner Gerontology; Physician Assistant; ADMITTING PHYSICIAN Hospitalist; CONSULT PHYSICIAN Internal Medicine; CONSULT PHYSICIAN Student in an Organized Health Care Education/Training Program; EMERGENCY PHYSICIAN Emergency Medicine; FAMILY PHYSICIAN Nurse Practitioner Adult Health; OTHER PHYSICIAN Internal Medicine Cardiovascular Disease
PROC: 0DH64UZ Insertion of Feeding Device into Stomach, Percutaneous Endoscopic Approach (ICD-10-PCS; 2023-11-18)
DX: E05.91 Thyrotoxicosis, unspecified with thyrotoxic crisis or storm (principal); E43 Unspecified severe protein-calorie malnutrition; G93.41 Metabolic encephalopathy; I5A Non-ischemic myocardial injury (non-traumatic); E87.1 Hypo-osmolality and hyponatremia; N39.0 Urinary tract infection, site not specified; R62.7 Adult failure to thrive; I10 Essential (primary) hypertension; G62.9 Polyneuropathy, unspecified; I48.91 Unspecified atrial fibrillation; K31.89 Other diseases of stomach and duodenum; F01.50 Vascular dementia, unspecified severity, without behavioral disturbance, psychotic disturbance, mood disturbance, and anxiety; D64.9 Anemia, unspecified; R60.0 Localized edema; R13.12 Dysphagia, oropharyngeal phase; B95.2 Enterococcus as the cause of diseases classified elsewhere; R33.9 Retention of urine, unspecified; D75.829 Heparin-induced thrombocytopenia, unspecified; T45.515A Adverse effect of anticoagulants, initial encounter; Y92.239 Unspecified place in hospital as the place of occurrence of the external cause; H53.2 Diplopia; R29.2 Abnormal reflex; Z87.891 Personal history of nicotine dependence; Z82.3 Family history of stroke; Z91.199 Patient's noncompliance with other medical treatment and regimen due to unspecified reason; Z91.148 Patient's other noncompliance with medication regimen for other reason; Z91.119 Patient's noncompliance with dietary regimen due to unspecified reason; Z68.22 Body mass index [BMI] 22.0-22.9, adult; Z86.73 Personal history of transient ischemic attack (TIA), and cerebral infarction without residual deficits
CPT/HCPCS: 93308; 70450; 70551; 71046; 74230; 80048; 80053; 80061; 80076; 81003; 81015; 82248; 82533; 82550; 82607; 82728; 82746; 82962; 83036; 83540; 83550; 83735; 83880; 83930; 83935; 83970; 84100; 84155; 84165; 84300; 84439; 84443; 84481; 84484; 85025; 85027; 85610; 85730; 86041; 86376; 87040; 87077; 87086; 87186; 92526; 92610; 92611; 93005; 93321; 93325; 95886; 95910; 96365; 96366; 96375; 97110; 97116; 97163; 97167; 97530; 97535; 99285; J3480

== ENCOUNTER 2023-12-02 00:39 | Emergency (ER) | payer OTHER, SELFPAY ==
[2023-12-02 00:45] VITALS: BP 115/50
[2023-12-02 00:54] VITALS: BP 131/71
[2023-12-02 01:00] VITALS: BP 120/63
--- NOTE | 2023-12-02 01:28 | ED.GENMED ---
History of Present Illness
General
Chief Complaint: Breathing Problem
Source: patient and family (Daughter)
Exam Limitations: none
Time Seen by Provider: 12/02/23 01:17
Travel History
Have you had any contact with someone who has COVID-19?: No
Do you have any symptoms of coronavirus? Fever > 100 degrees, chills, cough, shortness of breath, sore throat, loss of taste or smell, muscle aches, or headache?: No
History of Present Illness
History of Present Illness:
This is a 63 year old male that comes in with c/o SOB. State that he had gone to bad and when he was trying to lay down he was unable to catch his breath. States that he was recently here and admitted as he was so weak and had a PEG Tube placed
according to daughter. States that he has been going great since he got home and is now able to eat ice Cream and apple sauce. States that he has VN that comes in to help. Denies any fever, chills, chest pain, abd pain, nausea, vomiting, diarrhea,
headache, dizziness, urinary burning.
Past History
Past History
ED Past Medical History: Arrthythmia (Atrial fibrillation), HTN and Hyperthyroidism
ED Past Surgical History: Other (Hernia repair)
Social History
Tobacco: Non-smoker
Alcohol: None
Personal: Single
Living: alone
Review of Systems
Review of Systems
All Other Systems: ROS reviewed and negative except as documented in HPI and ROS
Constitutional: Reports no symptoms; Denies fever or chills
EENT: Reports no symptoms
Respiratory: Reports trouble breathing; Denies cough
Cardiac: Reports no symptoms; Denies chest pain
ABD/GI: Reports no symptoms; Denies abdominal pain, nausea, vomiting or diarrhea
: Reports no symptoms; Denies dysuria, frequency or urgency
Musculoskeletal: Reports no symptoms
Skin: Reports no symptoms
Neurological: Reports no symptoms; Denies dizzy or headache
Psychiatric: Reports no symptoms
Phy Exam
General Physical Exam
General Presentation: no apparent distress
General age: appears stated age
General Skin: warm and dry
General Habitus: elderly
General Mental: alert
General Hydration: appears well hydrated
ENT Exam
ENT Exam: TM's normal, pharynx normal and neck supple
Eye Exam
Eye Exam: EOMI
Cardiovascular Exam
Cardiovascular Exam: regular rate/rhythm and normal peripheral pulses
Pulmonary Exam
Pulmonary Exam: lungs clear, no respiratory distress, no rales, chest non tender, no crackles, no rhonchi, no wheezing and no cough
Gastrointestinal Exam
Gastrointestinal Exam: normal bowel sounds, non tender, soft, no organomegaly, no pulsatile mass and non distended
External Findings: gastrostomy tube
Musculoskeletal Exam
Musculoskeletal Exam: full ROM and edema (Bilateral leg edema pitting into thighs +2.)
Skin Exam
Skin Exam: normal color, warm/dry, no rash and no petechia
Psychiatric Exam
Psychiatric Exam: normal mood/affect
Scores
Heart Failure Risk
Heart Failure Risk Score: Not Applicable
Course
Orders/Labs/Results
Orders:
Orders
12/02/23 01:28
Electrocardiogram (*1) Urgent
Reason for Study: Shortness of Breath
EKG- Treatment ONCE
CR Chest - 2 Views Urgent
Comment:
Reason For Exam: SOB
12/02/23 01:55
Complete Blood Count/With Diff Urgent
Comprehensive Metabolic Panel Urgent
NT-proBNP Urgent
Troponin I Urgent
Abnormal Lab Results
12/02/23
01:55
RBC 3.17 L 10^6/uL
(4.70-6.10)
Hgb 8.6 L g/dL
(13.0-18.0)
Hct 26.3 L %
(39.0-52.0)
MCHC 32.7 L g/dL
(33.0-37.0)
RDW 16.5 H %
(11.5-14.5)
Lymphocytes % 17.3 L %
(20.5-51.1)
Sodium 133 L mmol/L
(135-145)
Creatinine 0.6 L mg/dL
(0.7-1.3)
Glucose 104 H mg/dl
(70-99)
Total Protein 6.1 L g/dl
(6.3-8.2)
Albumin 3.2 L g/dl
(3.5-5.0)
12/02/23 01:55
12/02/23 01:55
Vital Signs
Initial and Last Documented VS:
Initial Vital Signs
Temp Pulse Resp BP Pulse Ox
97.9 F 58 24 115/50 100
12/02/23 00:45 12/02/23 00:45 12/02/23 00:45 12/02/23 00:45 12/02/23 00:45
Last Documented Vital Signs
Temp Pulse Resp BP Pulse Ox
97.9 F 63 23 126/52 99
12/02/23 00:45 12/02/23 02:32 12/02/23 02:32 12/02/23 02:32 12/02/23 02:32
MDM/Problems Addressed
Differential Diagnosis Includes:
CHF, PNA, PE
MDM/Problems Addressed:
This is a 63 year old male that comes in with c/o SOB. States that he went to lay down tonight and was SOB. States that he felt like he couldn't catch his breath and that he couldn't take a deep breath.
Will check labs. ECG and Chest x-ray
Back into see patient and daughter. Explained that his blood work is ok and his PRo-BNP is about were is was. Chest x-ray is negative for any acute disease. This may have been a panic attack as patient states that he feels better now. With the lower
leg edema will give a dose of IV Lasix here and patient is to follow up with the Family doctor for recheck. They may wish to increase his Lasix and add potassium daily. Patient to return with any concerns
Chronic conditions affecting care:
NA
Acute Exacerbation and/or Progression of Chronic Illness:
NA
*Radiology
Radiology exam reviewed: preliminary read by ED provider (Chest- Negative for active disease)
*Pulse Oximetry
Patient hypoxic: no
*EKG
Interpreted by ED Provider?: Yes
Heart Rate: 64
Rate: normal
Rhythm: sinus
Mcintosh: normal axis
Interval: normal interval
QRS Pattern: normal QRS
Ischemia: no ischemia
*Marina Porter Interpretation
Rate: normal
Heart Rate: 65
Rhythm: sinus
*Critical Care Note
Total Time (30-74mins, 75-104mins- exclusive of procedures): Not Applicable
ED Attending Note
-
Portions of this chart may have been created with voice recognition software.� Occasional wrong word or��sound alike� substitutions may have occurred due to the inherent limitations of voice recognition software.
Discharge Plan
Departure
Patient Disposition: Home (Routine Discharge)
Date of Disposition: 12/02/23
Time of Disposition: 02:40
Patient with high blood pressure during this ER visit?: No
Condition: Good
Covid-19: Not Applicable
Discharge Problem:
SOB (shortness of breath), Panic attack
Instructions: Shortness of Breath (Dyspnea) (DC), Panic Attack ED
Prescriptions:
No Action
losartan 50 mg Tablet
50 mg feeding tube DAILY 30 Days Qty: 30 0RF
furosemide 40 mg Tablet
40 mg feeding tube DAILY 30 Days Qty: 30 0RF
amoxicillin-pot clavulanate 250-62.5 mg/5 mL Suspension For Reconstitution
10 ml feeding tube Q8H 5 Days Qty: 150 0RF
metoprolol tartrate 50 mg Tablet
50 mg feeding tube Q8@0600,1400,2200 30 Days Qty: 90 0RF
methimazole 5 mg Tablet
20 mg feeding tube TID 30 Days Qty: 360 0RF
Eliquis 5 mg Tablet
5 mg feeding tube BID 30 Days Qty: 60 0RF
Referrals:
Allie Renee PA-C [Family Provider] - Follow up in 2-3 days
Activity Restrictions/Additional Instructions:
As discussed, your blood work shows that your Hgb is low. Your Chest X-ray is negative for any acute disease. You have been given an extra dose of Lasix 20mg IV here to help decrease some of the leg swelling. Please follow up with the family doctor
and the Talent Development Coordinator for further evaluation. This may may have been a panic attack. IF YOU HAVE ANY FURTHER SHORTNESS OF BREATH, OR YOU HAVE ANY OTHER CONCERNS PLEASE RETURN TO THE EMERGENCY ROOM.
Interventions
Interventions:
*Risk Screen - Suicide Last Done: 12/02/23 00:45
*Neglect/Abuse Screening Last Done: 12/02/23 00:45
ED- Cardiac Assessment Last Done: 12/02/23 01:02
ED- Pulmonary Assessment Last Done: 12/02/23 01:02
Discharge Date and Time
Print Language: UKRAINIAN
[2023-12-02 02:01] LABS: % Basophils 0.4 % (0-2); % Eosinophils 2.2 % (0-6); % Immature Granulocytes 0.4 % (0-0.5); % Lymphocytes 17.3 % (20.5-51.1); % Monocytes 5.6 % (1.7-9.3); % Neutrophils 74.1 % (42.2-75.2); Absolute Eosinophils 0.2 10^3/uL (0-0.7); Absolute Lymphocytes 1.2 10^3/uL (1.2-3.4); Absolute Monocytes 0.4 10^3/uL (0.1-0.6); Absolute Neutrophils 5.1 10^3/uL (1.4-6.5); Hematocrit 26.3 % (39.0-52.0); Hemoglobin 8.6 g/dL (13.0-18.0); Mean Corp Hgb Conc. 32.7 g/dL (33.0-37.0); Mean Corpuscular Hgb 27.1 pg (27.0-31.0); Mean Platelet Volume 9.6 fL (7.4-10.4); Nucleated Red Blood Cells % 0 % (-); Platelet Count 236 10^3/uL (130-400); Red Blood Cell Count 3.17 10^6/uL (4.70-6.10); Red Cell Dist. Width 16.5 % (11.5-14.5); White Blood Cell Count 6.9 10^3/uL (4.8-10.8)
[2023-12-02 02:24] LABS: ALT (SGPT) 21 U/L (0-50); AST (SGOT) 19 U/L (17-59); Albumin 3.2 g/dl (3.5-5.0); Alkaline Phosphatase 103 U/L (38-126); Blood Urea Nitrogen 19 mg/dl (9-20); Calcium 8.8 mg/dl (8.4-10.2); Carbon Dioxide 28 mmol/L (22-30); Chloride 99 mmol/L (98-107); Glucose 104 mg/dl (70-99); Potassium 4.4 mmol/L (3.5-5.1); Sodium 133 mmol/L (135-145); Total Bilirubin 0.5 mg/dl (0.2-1.3); Total Protein 6.1 g/dl (6.3-8.2); eGFR > 60.00
[2023-12-02 02:26] LABS: NT-proBNP 2420 pg/ml; Troponin I < 0.012 ng/ml
[2023-12-02 02:32] VITALS: BP 126/52
[2023-12-02] MEDS: LASIX 20 MG IV (02:40)
== END 2023-12-02 02:54 | disposition home or self-care (01) ==
LOC: EMR 00:39
PROVIDERS: Clinical Nurse Specialist Family Health; EMERGENCY PHYSICIAN Emergency Medicine; FAMILY PHYSICIAN Physician Assistant
DX: R06.02 Shortness of breath (principal); F41.0 Panic disorder [episodic paroxysmal anxiety]
CPT/HCPCS: 99285; 96374; 71046; 80053; 83880; 84484; 85025; 93005

== ENCOUNTER 2023-12-12 09:46 | Outpatient (REF) | payer OTHER, SELFPAY | END 2023-12-23 14:38 | disposition home or self-care (01) | LOC: RAD 09:46 | PROVIDERS: ATTENDING PHYSICIAN Nurse Practitioner Adult Health; FAMILY PHYSICIAN Physician Assistant | DX: R13.13 Dysphagia, pharyngeal phase (principal) | CPT/HCPCS: 74230; 92611 ==

== ENCOUNTER 2023-12-23 06:01 | Day surgery (SDC) | payer OTHER, SELFPAY ==
[2023-12-16 08:12] VITALS: BMI 26.0
[2023-12-16 08:49] LABS: Hematocrit 34.5 % (39.0-52.0); Hemoglobin 11.1 g/dL (13.0-18.0); Mean Corp Hgb Conc. 32.2 g/dL (33.0-37.0); Mean Corpuscular Hgb 28.4 pg (27.0-31.0); Mean Corpuscular Volume 88.2 fL (80.0-94.0); Mean Platelet Volume 9.7 fL (7.4-10.4); Platelet Count 314 10^3/uL (130-400); Red Blood Cell Count 3.91 10^6/uL (4.70-6.10); Red Cell Dist. Width 19.3 % (11.5-14.5); White Blood Cell Count 7.9 10^3/uL (4.8-10.8)
[2023-12-16 09:21] LABS: ALT (SGPT) 17 U/L (0-50); AST (SGOT) 23 U/L (17-59); Albumin 3.9 g/dl (3.5-5.0); Alkaline Phosphatase 107 U/L (38-126); Blood Urea Nitrogen 28 mg/dl (9-20); Calcium 9.5 mg/dl (8.4-10.2); Carbon Dioxide 29 mmol/L (22-30); Chloride 101 mmol/L (98-107); Estimated Creatinine Clearance 87 ml/min; Glucose 95 mg/dl (70-99); Potassium 4.6 mmol/L (3.5-5.1); Sodium 137 mmol/L (135-145); Total Bilirubin 0.7 mg/dl (0.2-1.3); Total Protein 7.1 g/dl (6.3-8.2); eGFR > 60.00
[2023-12-16 09:22] LABS: INR 1.09; PT 13.9 Sec (11.4-14.6)
[2023-12-16 09:23] LABS: APTT 33.2 Sec (23.4-35.0)
[2023-12-23] VITALS (7 sets, daily range): BP systolic 122–128; BP diastolic 40–64; BMI 26.0
[2023-12-23] MEDS: TYLENOL 1000 MG PO (07:25)
[2023-12-23] MEDS: NEURONTIN 300 MG PO (07:25)
[2023-12-23] MEDS: HEPARIN 5000 UNITS SC (07:25)
[2023-12-23] MEDS: NORMOSOL-R 1000 IV (07:41)
--- NOTE | 2023-12-23 10:30 | OR.RPT ---
Operative Report
Operative Report
DATE OF OPERATION: December 23, 2023
PREOPERATIVE DIAGNOSIS: �Thyroid Hyperthyroidism - E0500
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
SURGEON: Jorge Luis Pulliam M.D.
OPERATION: �Substernal thyroid resection - 44335
ANESTHESIA: GET
ESTIMATED BLOOD LOSS: 20 cc
DRAINS: None
SPECIMEN: �total thyroid
FINDINGS: Substernal goiter
COMPLICATIONS:�None
PROCEDURE:
The patient was taken to the operating room and placed in the usual supine position. After adequate general endotracheal anesthesia was established, the patient�s neck was extended, prepped, and draped in the typical sterile fashion. A 2-inch
transcervical incision was made two fingerbreadths above the sternal notch. The skin incision was made with the #15 blade, which was taken through the skin into the subcutaneous tissue. The underlying platysma muscle was divided, and subplatysmal
flaps were created superiorly to the thyroid cartilage and inferiorly to the sternal notch. Strap muscles were identified and at the midline.
Attention was turned to the patient�s right thyroid lobe. The right thyroid lobe was mobilized medially. During this process, the right middle thyroid vein and inferior thyroid artery were dissected and ligated with Ligasure. Next, the right
superior pole was taken down by dissecting and transecting the superior pole vessels with a Ligasure. The right thyroid lobe was mobilized medially. During this process, the right recurrent laryngeal nerve was identified and preserved throughout its
entire course. The right superior parathyroid gland was identified and preserved. The right thyroid lobe with isthmus was resected off the trachea and sent to the pathology department.
Next, attention was turned to the patient�s left thyroid lobe. The left thyroid lobe was mobilized medially. During this process, the left middle thyroid vein and inferior thyroid artery were dissected and ligated with Ligasure. There was a
substernal extension, which was delivered out of the mediastinum through the cervical incision. Next, the left superior pole was taken down by dissecting and transecting the superior pole vessels with a Ligasure. The left thyroid lobe was mobilized
medially. During this process, the left recurrent laryngeal nerve was identified and preserved throughout its entire course. The left inferior parathyroid gland was identified and preserved. The left thyroid lobe with isthmus was resected off the
trachea and sent to the pathology department.
After obtaining adequate hemostasis, the strap muscle was approximated with #3-0 Vicryl in a running fashion, and platysma muscles were reapproximated with #3-0 Vicryl in an interrupted fashion, and the skin was approximated with #4-0 Monocryl in a
running subcuticular fashion. Steri-strips and sterile dressings were placed. The patient tolerated the procedure well. The final instrument, needle, and sponge counts were correct.
== END 2023-12-23 11:35 | disposition home or self-care (01) ==
LOC: SDS 06:01
PROVIDERS: ATTENDING PHYSICIAN Surgery; FAMILY PHYSICIAN Physician Assistant; OTHER PHYSICIAN Internal Medicine Endocrinology, Diabetes & Metabolism
DX: E05.00 Thyrotoxicosis with diffuse goiter without thyrotoxic crisis or storm (principal)
CPT/HCPCS: 60271; 88307; 36415; 80053; 85027; 85610; 85730; C9250

== ENCOUNTER → 2024-01-06 08:36 | Outpatient (REF) | payer OTHER, SELFPAY | LOC: RST 08:36 | PROVIDERS: ATTENDING PHYSICIAN Nurse Practitioner Adult Health; FAMILY PHYSICIAN Physician Assistant | DX: R13.13 Dysphagia, pharyngeal phase (principal) | CPT/HCPCS: 74230; 92611 ==

== ENCOUNTER → 2024-11-02 07:18 | Outpatient (REF) | payer OTHER, SELFPAY | LOC: HWRCS 07:18 | PROVIDERS: ATTENDING PHYSICIAN Internal Medicine Cardiovascular Disease; FAMILY PHYSICIAN Physician Assistant | DX: R06.02 Shortness of breath (principal); I48.0 Paroxysmal atrial fibrillation; M79.89 Other specified soft tissue disorders | CPT/HCPCS: 93306 ==